=== PATIENT | male | born 1960 | race African-American/Black ===

== ENCOUNTER 2016-05-29 15:52 | Inpatient (IN) | payer OTHER ==
[2016-05-29 17:55] VITALS: BMI 25.1
--- NOTE | 2016-05-29 18:27 | HP ---
CIWA Score - CIWA Score Nausea/Vomitin-Mild Nausea/No Vomiting Muscle Tremors: 3 Anxiety: 4-Mod. Anxious/Guarded Agitation: 4-Moderately Restless Paroxysmal Sweats: 3 Orientation: 0-Oriented Tacttile Disturbances: 0-None Auditory Disturbances: 0-None Visual Disturbances: 0-None Headache: 0-None Present CIWA-Ar Total Score: 15 Admission ROS BHS - HPI Chief Complaint: Withdrawal sx. Allergies/Adverse Reactions: Allergies Allergy/AdvReac Type Severity Reaction Status Date / Time No Known Drug Allergies Allergy Verified 12/23/15 21:01 History of Present Illness: 56 y/o man with a long hx. of alcoholism is admitted for detox. Pt. has been in previous detox, reports 2 yrs. sobriety in 1991 to 1993. Exam Limitations: No Limitations - Ebola screening Have you traveled outside of the country in the last 21 days: No Have you had contact with anyone from an Ebola affected area: No Have you been sick,other than usual withdrawal symptoms: No Do you have a fever: No - Review of Systems Constitutional: Diaphoresis EENT: reports: No Symptoms Reported Respiratory: reports: No Symptoms reported Cardiac: reports: No Symptoms Reported GI: reports: Nausea, Abdominal cramping : reports: No Symptoms Reported Musculoskeletal: reports: Joint Pain, Muscle Pain Integumentary: reports: Sweating Neuro: reports: Tremors Endocrine: reports: No Symptoms Reported Hematology: reports: No Symptoms Reported Psychiatric: reports: No Sypmtoms Reported Other Systems: Reviewed and Negative Patient History - Patient Medical History Hx Anemia: No Hx Asthma: No Hx Chronic Obstructive Pulmonary Disease (COPD): No Hx Cancer: No Hx Cardiac Disorders: No Hx Congestive Heart Failure: No Hx Hypertension: No Hx Hypercholesterolemia: No Hx Pacemaker: No HX Cerebrovascular Accident: No Hx Seizures: No Hx Dementia: No Hx Diabetes: No Hx Gastrointestinal Disorders: No Hx Liver Disease: No Hx Genitourinary Disorders: No Hx Sexually Transmitted Disorders: No Hx Renal Disease (ESRD): No Hx Thyroid Disease: No Hx Human Immunodeficiency Virus (HIV): No Hx Hepatitis C: No Hx Depression: No Hx Suicide Attempt: No Hx Bipolar Disorder: No Hx Schizophrenia: No - Patient Surgical History Past Surgical History: No Hx Neurologic Surgery: No Hx Cataract Extraction: No Hx Cardiac Surgery: No Hx Lung Surgery: No Hx Breast Surgery: No Hx Breast Biopsy: No Hx Abdominal Surgery: No Hx Appendectomy: No Hx Cholecystectomy: No Hx Genitourinary Surgery: No Hx Section: No Hx Orthopedic Surgery: No Anesthesia Reaction: No - PPD History Date: 08/30/15 Results: 0 mm PPD to be Administered?: No - Smoking Cessation Smoking history: Current every day smoker Have you smoked in the past 12 months: Yes Aproximately how many cigarettes per day: 10 Cigars Per Day: 0 Hx Chewing Tobacco Use: No Initiated information on smoking cessation: Yes 'Breaking Loose' booklet given: 05/29/16 - Substance & Tx. History Hx Alcohol Use: Yes Hx Substance Use: Yes Substance Use Type: Alcohol, Cocaine Hx Substance Use Treatment: Yes (detox) - Substances Abused Alcohol Route: Oral Frequency: Daily Amount used: vodka 2 pints Age of first use: 17 Date of Last Use: 05/29/16 Crack Route: Smoking Frequency: Daily Amount used: $50.00 Age of first use: 26 Date of Last Use: 05/28/16 Family Disease History - Family Disease History Family History: Denies Admission Physical Exam [facility] - Vital Signs Vital Signs: Vital Signs - 24 hr 05/29/16 17:52 Temperature 95.9 F L Pulse Rate 20 L Respiratory 53 H Rate Blood Pressure 126/83 - Physical General Appearance: Yes: Tremorous, Anxious, Other HEENTM: Yes: Rhinorrhea Respiratory: Yes: Chest Non-Tender, Lungs Clear, Normal Breath Sounds Neck: Yes: Supple Breast: Yes: Breast Exam Deferred Cardiology: Yes: Regular Rhythm, Regular Rate, S1, S2 Abdominal: Yes: Normal Bowel Sounds, Non Tender, Soft Genitourinary: Yes: Within Normal Limits Back: Yes: Within Normal Limits Musculoskeletal: Yes: Within Normal Limits Extremities: Yes: Tremors Neurological: Yes: Fully Oriented, Alert Integumentary: Yes: Diaphoresis Lymphatic: Yes: Within Normal Limits - Diagnostic (1) Alcohol dependence with uncomplicated withdrawal Current Visit: Yes Status: Chronic (2) Cocaine dependence Current Visit: Yes Status: Chronic (3) Nicotine dependence Current Visit: Yes Status: Chronic Qualifiers: Nicotine product type: cigarettes Substance use status: uncomplicated Qualified Code(s): F17.210 - Nicotine dependence, cigarettes, uncomplicated Cleared for Admission [facility] - Detox or Rehab [facility] Level of Care: Medically Managed Detox Regimen/Protocol: Librium BHS Breath Alcohol Content Breath Alcohol Content: 0.006 Urine Drug Screen - Results Drug Screen Negative: No Urine Drug Screen Results: ELYSIA-Cocaine
[2016-05-29] MEDS ORDERED: ACETAMINOPHEN 325 MG TABLET (FP) PO PRN (18:34)
[2016-05-29] MEDS ORDERED: guaiFENesin/D-METHORPHAN HB 10 ML UNIT-DOSE CUPS PO PRN (18:34)
[2016-05-29] MEDS ORDERED: MAGNESIUM CITRATE 300 ML BOTTLE PO PRN (18:34)
[2016-05-29] MEDS ORDERED: MAGNESIUM HYDROX 2400MG/30ML ORAL SUSPENSION 30 ML CUP PO PRN (18:34)
[2016-05-29] MEDS ORDERED: P-EPHED 60MG/TRIPROLIDI 2.5MG TABLET PO PRN (18:34)
[2016-05-29] MEDS ORDERED: MAG HYDROX/AL HYDROX/SIMETH 30 ML UNIT-DOSE CUP PO PRN (18:34)
[2016-05-29] MEDS ORDERED: MENTHOL/PHENOL 1 EACH UD MM PRN (18:34)
[2016-05-29] MEDS ORDERED: diphenhydrAMINE HCL 50 MG CAPSULE PO PRN (18:34)
[2016-05-29] MEDS ORDERED: chlordiazePOXIDE HCL 25 MG CAPSULE PO PRN (18:34)
[2016-05-29] MEDS ORDERED: IBUPROFEN 400 MG TABLET (FP) PO PRN (18:34)
[2016-05-29] MEDS ORDERED: LOPERAMIDE HCL 2 MG CAPSULE PO PRN (18:34)
[2016-05-29] MEDS ORDERED: hydrOXYzine PAMOATE 50 MG CAPSULE (FP) PO PRN (18:34)
[2016-05-29] MEDS ORDERED: NICOTINE POLACRILEX 2 MG GUM BC PRN (18:34)
[2016-05-29] MEDS ORDERED: chlordiazePOXIDE HCL 25 MG CAPSULE PO ONE (19:45)
[2016-05-29] MEDS: NICOTINE 21 MG/24 HOURS TOPICAL PATCH TD SCH (20:06)
[2016-05-29] MEDS: THIAMINE HCL 100 MG TABLET (FP) PO SCH (22:20)
[2016-05-29] MEDS: chlordiazePOXIDE HCL 25 MG CAPSULE PO SCH (22:20)
[2016-05-30] MEDS: chlordiazePOXIDE HCL 25 MG CAPSULE PO SCH ×4 (05:15→22:14)
[2016-05-30 09:51] LABS: MCH 28.4 pg (25.7-33.7); MEAN PLT VOLUME 9.7 fl (7.5-11.1); PLATELET COUNT 168 K/MM3 (134-434); RDW 14.1 % (11.9-15.9); WHITE BLOOD COUNT 7.7 K/mm3 (4.0-10.0)
[2016-05-30 09:52] LABS: URINE APPEARANCE CLEAR; URINE BILIRUBIN NEGATIVE (NEGATIVE); URINE BLOOD NEGATIVE (NEGATIVE); URINE COLOR LTYELLOW; URINE GLUCOSE (UA) NEGATIVE (NEGATIVE); URINE KETONE NEGATIVE (NEGATIVE); URINE LEUK ESTERASE NEGATIVE (NEGATIVE); URINE NITRITE NEGATIVE (NEGATIVE); URINE PROTEIN NEGATIVE (NEGATIVE); URINE UROBILINOGEN NEGATIVE E.U./dl (0.2-1.0)
[2016-05-30 10:10] LABS: CALCIUM 8.8 mg/dL (8.5-10.1); SGOT/AST 14 U/L (15-37)
[2016-05-30] MEDS: PRENATAL VITAMINS W/ FOLIC ACID TABLET (FP) PO SCH (10:14)
[2016-05-30] MEDS: NICOTINE 21 MG/24 HOURS TOPICAL PATCH TD SCH (10:16)
[2016-05-30 10:19] LABS: ALBUMIN 3.6 g/dl (3.4-5.0); ALK PHOS 70 U/L (45-117); ANION GAP 7 (8-16); BILIRUBIN,TOTAL 0.3 mg/dL (0.2-1.0); CO2 29 mmol/L (21-32); GLUCOSE,RANDOM 93 mg/dL (74-106); SGPT/ALT 22 U/L (12-78); TOT PROT 6.6 g/dl (6.4-8.2)
[2016-05-30 10:23] LABS: HIV 1 & 2 AB NEGATIVE; HIV 1 AGp24 NEGATIVE
--- NOTE | 2016-05-30 12:41 | EKG ---
Test Reason : Blood Pressure : / mmHG Vent. Rate : 055 BPM Atrial Rate : 055 BPM P-R Int : 156 ms QRS Dur : 086 ms QT Int : 396 ms P-R-T Axes : 067 046 038 degrees QTc Int : 378 ms SINUS BRADYCARDIA SEPTAL INFARCT , AGE UNDETERMINED ABNORMAL ECG NO PREVIOUS ECGS AVAILABLE Confirmed by KRYSTINA FIORE MD ([id number]) on 05/30/2016 12:41:03 PM Referred By: Confirmed By:KRYSTINA FIORE MD
--- NOTE | 2016-05-30 13:23 | PN ---
S CIWA - CIWA Score Nausea/Vomitin-Mild Nausea/No Vomiting Muscle Tremors: 4-Moderate,w/Arms Extend Anxiety: 4-Mod. Anxious/Guarded Agitation: 3 Paroxysmal Sweats: 3 Orientation: 0-Oriented Tacttile Disturbances: 0-None Auditory Disturbances: 0-None Visual Disturbances: 0-None Headache: 0-None Present CIWA-Ar Total Score: 15 BHS Progress Note (SOAP) Subjective: Sweating,anxiety,tremors,interrupted sleep,restless Objective: 05/30/16 13:22 Vital Signs - 8 hr 05/30/16 05/30/16 06:13 10:23 Temperature 97.6 F 97.6 F Pulse Rate 65 79 Respiratory 18 18 Rate Blood Pressure 120/64 123/68 Laboratory Tests 05/30/16 05/30/16 05/30/16 07:00 07:00 07:00 WBC 7.7 RBC 4.28 Hgb 12.2 Hct 38.1 MCV 89.0 MCHC 32.0 RDW 14.1 Plt Count 168 D MPV 9.7 Sodium 145 Potassium 4.3 Chloride 109 H Carbon Dioxide 29 Anion Gap 7 L BUN 14 Creatinine 1.0 Creat Clearance w eGFR > 60 Random Glucose 93 Calcium 8.8 Total Bilirubin 0.3 D AST 14 L ALT 22 Alkaline Phosphatase 70 Total Protein 6.6 Albumin 3.6 Urine Color Urine Appearance Urine pH Ur Specific [place] Urine Protein Urine Glucose (UA) Urine Ketones Urine Blood Urine Nitrite Urine Bilirubin Urine Urobilinogen Ur Leukocyte Esterase RPR Titer Nonreactive HIV 1&2 Antibody Screen HIV P24 Antigen 05/30/16 05/30/16 07:00 07:00 WBC RBC Hgb Hct MCV MCHC RDW Plt Count MPV Sodium Potassium Chloride Carbon Dioxide Anion Gap BUN Creatinine Creat Clearance w eGFR Random Glucose Calcium Total Bilirubin AST ALT Alkaline Phosphatase Total Protein Albumin Urine Color Ltyellow Urine Appearance Clear Urine pH 6.0 Ur Specific [place] 1.019 Urine Protein Negative Urine Glucose (UA) Negative Urine Ketones Negative Urine Blood Negative Urine Nitrite Negative Urine Bilirubin Negative Urine Urobilinogen Negative Ur Leukocyte Esterase Negative RPR Titer HIV 1&2 Antibody Screen Negative HIV P24 Antigen Negative labs noted Assessment: 05/30/16 13:23 Withdrawal sx. Plan: Continue detox
[2016-05-30] MEDS: THIAMINE HCL 100 MG TABLET (FP) PO SCH (22:14)
[2016-05-31] MEDS: chlordiazePOXIDE HCL 25 MG CAPSULE PO SCH ×3 (05:27→17:06)
[2016-05-31] MEDS: NICOTINE 21 MG/24 HOURS TOPICAL PATCH TD SCH (10:10)
[2016-05-31] MEDS: PRENATAL VITAMINS W/ FOLIC ACID TABLET (FP) PO SCH (10:10)
--- NOTE | 2016-05-31 10:22 | PN ---
[facility] CIWA - CIWA Score Nausea/Vomitin-No Nausea/No Vomiting Muscle Tremors: 3 Anxiety: 3 Agitation: 4-Moderately Restless Paroxysmal Sweats: 3 Orientation: 0-Oriented Tacttile Disturbances: 0-None Auditory Disturbances: 0-None Visual Disturbances: 0-None Headache: 0-None Present CIWA-Ar Total Score: 13 S Progress Note (SOAP) Subjective: Anxiety,tremors,sweating,interrupted sleep,restless Objective: 05/31/16 10:21 Vital Signs - 8 hr 05/31/16 05/31/16 05/31/16 03:22 05:58 09:29 Temperature 96.7 F L 96.6 F L Pulse Rate 63 72 Respiratory 18 18 18 Rate Blood Pressure 111/67 120/69 Laboratory Last Values WBC 7.7 K/mm3 (4.0-10.0) 05/30/16 07:00 RBC 4.28 M/mm3 (4.00-5.60) 05/30/16 07:00 Hgb 12.2 GM/dL (11.7-16.9) 05/30/16 07:00 Hct 38.1 % (35.4-49) 05/30/16 07:00 MCV 89.0 fl (80-96) 05/30/16 07:00 MCHC 32.0 g/dl (32.0-35.9) 05/30/16 07:00 RDW 14.1 % (11.9-15.9) 05/30/16 07:00 Plt Count 168 K/MM3 (134-434) D 05/30/16 07:00 MPV 9.7 fl (7.5-11.1) 05/30/16 07:00 Sodium 145 mmol/L (136-145) 05/30/16 07:00 Potassium 4.3 mmol/L (3.5-5.1) 05/30/16 07:00 Chloride 109 mmol/L (98-107) H 05/30/16 07:00 Carbon Dioxide 29 mmol/L (21-32) 05/30/16 07:00 Anion Gap 7 (8-16) L 05/30/16 07:00 BUN 14 mg/dL (7-18) 05/30/16 07:00 Creatinine 1.0 mg/dL (0.7-1.3) 05/30/16 07:00 Creat Clearance w eGFR > 60 (>60) 05/30/16 07:00 Random Glucose 93 mg/dL (74-106) 05/30/16 07:00 Calcium 8.8 mg/dL (8.5-10.1) 05/30/16 07:00 Total Bilirubin 0.3 mg/dL (0.2-1.0) D 05/30/16 07:00 AST 14 U/L (15-37) L 05/30/16 07:00 ALT 22 U/L (12-78) 05/30/16 07:00 Alkaline Phosphatase 70 U/L (45-117) 05/30/16 07:00 Total Protein 6.6 g/dl (6.4-8.2) 05/30/16 07:00 Albumin 3.6 g/dl (3.4-5.0) 05/30/16 07:00 Urine Color Ltyellow 05/30/16 07:00 Urine Appearance Clear 05/30/16 07:00 Urine pH 6.0 (5.0-8.0) 05/30/16 07:00 Ur Specific [place] 1.019 (1.001-1.035) 05/30/16 07:00 Urine Protein Negative (NEGATIVE) 05/30/16 07:00 Urine Glucose (UA) Negative (NEGATIVE) 05/30/16 07:00 Urine Ketones Negative (NEGATIVE) 05/30/16 07:00 Urine Blood Negative (NEGATIVE) 05/30/16 07:00 Urine Nitrite Negative (NEGATIVE) 05/30/16 07:00 Urine Bilirubin Negative (NEGATIVE) 05/30/16 07:00 Urine Urobilinogen Negative E.U./dl (0.2-1.0) 05/30/16 07:00 Ur Leukocyte Esterase Negative (NEGATIVE) 05/30/16 07:00 RPR Titer Nonreactive (NONREACTIVE) 05/30/16 07:00 HIV 1&2 Antibody Screen Negative 05/30/16 07:00 HIV P24 Antigen Negative 05/30/16 07:00 Labs noted Assessment: 05/31/16 10:22 Withdrawal sx. Plan: Continue detox
[2016-05-31] MEDS: THIAMINE HCL 100 MG TABLET (FP) PO SCH (22:15)
[2016-05-31] MEDS: chlordiazePOXIDE 5 MG CAPSULE PO SCH (22:15)
[2016-06-01] MEDS: chlordiazePOXIDE 5 MG CAPSULE PO SCH ×3 (05:48→17:41)
[2016-06-01] MEDS: NICOTINE 21 MG/24 HOURS TOPICAL PATCH TD SCH (10:19)
[2016-06-01] MEDS: PRENATAL VITAMINS W/ FOLIC ACID TABLET (FP) PO SCH (10:19)
--- NOTE | 2016-06-01 16:46 | PN ---
BHS Progress Note (SOAP) Subjective: Sweating,interrupted sleep,restless Objective: 06/01/16 16:45 Vital Signs - 8 hr 06/01/16 06/01/16 09:25 13:09 Temperature 97.7 F 98.2 F Pulse Rate 83 70 Respiratory 18 18 Rate Blood Pressure 115/70 112/72 Laboratory Last Values WBC 7.7 K/mm3 (4.0-10.0) 05/30/16 07:00 RBC 4.28 M/mm3 (4.00-5.60) 05/30/16 07:00 Hgb 12.2 GM/dL (11.7-16.9) 05/30/16 07:00 Hct 38.1 % (35.4-49) 05/30/16 07:00 MCV 89.0 fl (80-96) 05/30/16 07:00 MCHC 32.0 g/dl (32.0-35.9) 05/30/16 07:00 RDW 14.1 % (11.9-15.9) 05/30/16 07:00 Plt Count 168 K/MM3 (134-434) D 05/30/16 07:00 MPV 9.7 fl (7.5-11.1) 05/30/16 07:00 Sodium 145 mmol/L (136-145) 05/30/16 07:00 Potassium 4.3 mmol/L (3.5-5.1) 05/30/16 07:00 Chloride 109 mmol/L (98-107) H 05/30/16 07:00 Carbon Dioxide 29 mmol/L (21-32) 05/30/16 07:00 Anion Gap 7 (8-16) L 05/30/16 07:00 BUN 14 mg/dL (7-18) 05/30/16 07:00 Creatinine 1.0 mg/dL (0.7-1.3) 05/30/16 07:00 Creat Clearance w eGFR > 60 (>60) 05/30/16 07:00 Random Glucose 93 mg/dL (74-106) 05/30/16 07:00 Calcium 8.8 mg/dL (8.5-10.1) 05/30/16 07:00 Total Bilirubin 0.3 mg/dL (0.2-1.0) D 05/30/16 07:00 AST 14 U/L (15-37) L 05/30/16 07:00 ALT 22 U/L (12-78) 05/30/16 07:00 Alkaline Phosphatase 70 U/L (45-117) 05/30/16 07:00 Total Protein 6.6 g/dl (6.4-8.2) 05/30/16 07:00 Albumin 3.6 g/dl (3.4-5.0) 05/30/16 07:00 Urine Color Ltyellow 05/30/16 07:00 Urine Appearance Clear 05/30/16 07:00 Urine pH 6.0 (5.0-8.0) 05/30/16 07:00 Ur Specific [place] 1.019 (1.001-1.035) 05/30/16 07:00 Urine Protein Negative (NEGATIVE) 05/30/16 07:00 Urine Glucose (UA) Negative (NEGATIVE) 05/30/16 07:00 Urine Ketones Negative (NEGATIVE) 05/30/16 07:00 Urine Blood Negative (NEGATIVE) 05/30/16 07:00 Urine Nitrite Negative (NEGATIVE) 05/30/16 07:00 Urine Bilirubin Negative (NEGATIVE) 05/30/16 07:00 Urine Urobilinogen Negative E.U./dl (0.2-1.0) 05/30/16 07:00 Ur Leukocyte Esterase Negative (NEGATIVE) 05/30/16 07:00 RPR Titer Nonreactive (NONREACTIVE) 05/30/16 07:00 HIV 1&2 Antibody Screen Negative 05/30/16 07:00 HIV P24 Antigen Negative 05/30/16 07:00 labs noted Assessment: 06/01/16 16:46 Withdrawal sx. Plan: Continue detox
[2016-06-01] MEDS: THIAMINE HCL 100 MG TABLET (FP) PO SCH (22:53)
[2016-06-01] MEDS: chlordiazePOXIDE HCL 10 MG CAPSULE PO SCH (22:53)
[2016-06-02] MEDS: chlordiazePOXIDE HCL 10 MG CAPSULE PO SCH (06:19)
[2016-06-02 06:30] VITALS: BP 96/66; PULSE 62; TEMP 97.2
--- NOTE | 2016-06-02 07:55 | PN ---
S Progress Note (SOAP) Subjective: ALERT,NO COMPLAINT Objective: 06/02/16 07:53 Vital Signs Temperature 97.2 F L 06/02/16 06:29 Pulse Rate 62 06/02/16 06:29 Respiratory Rate 18 06/02/16 06:29 Blood Pressure 96/66 06/02/16 06:29 O2 Sat by Pulse Oximetry (%) Assessment: 06/02/16 07:53 DETOX COMPLETED,NO WITHDRAWAL SYMPTOM Plan: DISCHARGE TODAY,FOLLOW UP WITH AFTER CARE PROGRAM ARRANGEMENT
--- NOTE | 2016-06-02 08:00 | DS ---
[facility] Detox Discharge Summary Admission Date: 05/29/16 Discharge Date: 06/02/16 - History Present History: Alcohol Dependence, Cocaine Dependence Additional Comments: FOLLOW UP WITH AFTER CARE PROGRAM ARRANGEMENT Pertinent Past History: NICOTINE DEPENDENCE WEIGHT LOSS - Physical Exam Results Vital Signs: Vital Signs Temperature 97.2 F L 06/02/16 06:29 Pulse Rate 62 06/02/16 06:29 Respiratory Rate 18 06/02/16 06:29 Blood Pressure 96/66 06/02/16 06:29 O2 Sat by Pulse Oximetry (%) Pertinent Admission Physical Exam Findings: WITHDRAWAL SYMPTOM - Treatment Hospital Course: Detox Protocol Followed, Detoxed Safely, Responded well, Discharged Condition Good Patient has Accepted a Rehab Referral to: DECLINED - Medication Discharge Medications: Ambulatory Orders NK [No Known Home Medication] 01/08/15 - Diagnosis (1) Alcohol dependence with uncomplicated withdrawal Current Visit: Yes Status: Chronic (2) Nicotine dependence Current Visit: Yes Status: Chronic Qualifiers: Nicotine product type: cigarettes Substance use status: uncomplicated Qualified Code(s): F17.210 - Nicotine dependence, cigarettes, uncomplicated (3) Alcohol dependence Current Visit: No Status: Acute (4) Weight loss Current Visit: No Status: Acute (5) Cocaine dependence Current Visit: Yes Status: Chronic - AMA Did Patient Leave Against Medical Advice: No
== END 2016-06-02 08:52 | disposition home or self-care (01) | DRG 774 ==
LOC: YASAS 15:52 → Y3N 19:20
PROVIDERS: ADMIT Internal Medicine; ATTEND Internal Medicine
PROC: HZ2ZZZZ Detoxification Services for Substance Abuse Treatment (ICD-10-PCS; principal; 2016-05-29)
DX: F10.230 Alcohol dependence with withdrawal, uncomplicated (principal); F14.20 Cocaine dependence, uncomplicated; F17.210 Nicotine dependence, cigarettes, uncomplicated; Z87.898 Personal history of other specified conditions
CPT/HCPCS: 36415; 80053; 81003; 85027; 86593; 87389; 93005; 93010

== ENCOUNTER 2016-10-17 10:13 | Inpatient (IN) | payer OTHER ==
[2016-10-17 12:09] VITALS: BMI 25.1
--- NOTE | 2016-10-17 13:08 | HP ---
CIWA Score - CIWA Score Nausea/Vomitin-No Nausea/No Vomiting Muscle Tremors: 4-Moderate,w/Arms Extend Anxiety: 4-Mod. Anxious/Guarded Agitation: 4-Moderately Restless Paroxysmal Sweats: 3 Orientation: 0-Oriented Tacttile Disturbances: 0-None Auditory Disturbances: 0-None Visual Disturbances: 0-None Headache: 2-Mild CIWA-Ar Total Score: 17 Admission ROS BHS - HPI Chief Complaint: I need help. Allergies/Adverse Reactions: Allergies Allergy/AdvReac Type Severity Reaction Status Date / Time No Known Drug Allergies Allergy Verified 10/17/16 12:58 History of Present Illness: Pt is a 56yr old male with a long history of alcohol and cocaine dependence seeking detox for treatment. Exam Limitations: No Limitations - Ebola screening Have you traveled outside of the country in the last 21 days: No Have you had contact with anyone from an Ebola affected area: No Have you been sick,other than usual withdrawal symptoms: No - Review of Systems Constitutional: Chills, Diaphoresis, Loss of Appetite, Night Sweats, Changes in sleep EENT: reports: Nose Congestion Respiratory: reports: No Symptoms reported Cardiac: reports: Syncope GI: reports: Diarrhea, Poor Appetite, Poor Fluid Intake : reports: No Symptoms Reported Musculoskeletal: reports: No Symptoms Reported Integumentary: reports: Flushing, Sweating Neuro: reports: Headache, Tingling, Tremors Endocrine: reports: Excessive Sweating, Flushing Hematology: reports: No Symptoms Reported Psychiatric: reports: Judgement Intact, Mood/Affect Appropiate, Orientated x3, Agitated, Anxious Other Systems: Reviewed and Negative Patient History - Patient Medical History Hx Anemia: No Hx Asthma: No Hx Chronic Obstructive Pulmonary Disease (COPD): No Hx Cancer: No Hx Cardiac Disorders: No Hx Congestive Heart Failure: No Hx Hypertension: No Hx Hypercholesterolemia: No Hx Pacemaker: No HX Cerebrovascular Accident: No Hx Seizures: No Hx Dementia: No Hx Diabetes: No Hx Gastrointestinal Disorders: No Hx Liver Disease: No Hx Genitourinary Disorders: No Hx Sexually Transmitted Disorders: No Hx Renal Disease (ESRD): No Hx Thyroid Disease: No Hx Human Immunodeficiency Virus (HIV): No (negative) Hx Hepatitis C: No (negative) Hx Depression: No Hx Suicide Attempt: No (denies) Hx Bipolar Disorder: No Hx Schizophrenia: No - Patient Surgical History Past Surgical History: No Hx Neurologic Surgery: No Hx Cataract Extraction: No Hx Cardiac Surgery: No Hx Lung Surgery: No Hx Breast Surgery: No Hx Breast Biopsy: No Hx Abdominal Surgery: No Hx Appendectomy: No Hx Cholecystectomy: No Hx Genitourinary Surgery: No Hx Section: No Hx Orthopedic Surgery: No Anesthesia Reaction: No - PPD History Previous Implant?: Yes Documented Results: Negative w/o proof PPD to be Administered?: Yes - Reproductive History Patient is a Female of Child Bearing Age (11 -55 yrs old): No - Smoking Cessation Smoking history: Current every day smoker Have you smoked in the past 12 months: Yes Aproximately how many cigarettes per day: 10 Cigars Per Day: 0 Hx Chewing Tobacco Use: No Initiated information on smoking cessation: Yes 'Breaking Loose' booklet given: 10/17/16 - Substance & Tx. History Hx Alcohol Use: Yes Hx Substance Use: Yes Substance Use Type: Alcohol, Cocaine Hx Substance Use Treatment: Yes (last detox 05/2016) - Substances Abused Alcohol Route: Oral Frequency: Daily Amount used: 4 CANS BEER/ 2 PINTS VODKA Age of first use: 16 Date of Last Use: 10/16/16 Cocaine Route: Smoking Frequency: Daily Amount used: $20 Age of first use: 22 Date of Last Use: 10/16/16 Family Disease History - Family Disease History Family History: Denies Admission Physical Exam [facility] - Vital Signs Vital Signs: Vital Signs - 24 hr 10/17/16 11:54 Temperature 97.4 F L Pulse Rate 82 Respiratory 20 Rate Blood Pressure 126/76 - Physical General Appearance: Yes: Appropriately Dressed, Moderate Distress, Tremorous, Irritable, Sweating, Anxious HEENTM: Yes: Normal ENT Inspection, Hearing Decreased Respiratory: Yes: Lungs Clear, Normal Breath Sounds, No Respiratory Distress Neck: Yes: No masses,lesions,Nodules Breast: Yes: Within Normal Limits Cardiology: Yes: Regular Rhythm, Regular Rate, S1, S2 Abdominal: Yes: Normal Bowel Sounds, Non Tender, Soft Genitourinary: Yes: Within Normal Limits Back: Yes: Normal Inspection Musculoskeletal: Yes: full range of Motion Extremities: Yes: Normal Capillary Refill Neurological: Yes: Fully Oriented, Alert, Normal Response Integumentary: Yes: Normal Color, Diaphoresis Lymphatic: Yes: Within Normal Limits - Diagnostic (1) Alcohol dependence with uncomplicated withdrawal Current Visit: Yes Status: Chronic (2) Cocaine dependence Current Visit: Yes Status: Chronic (3) Nicotine dependence Current Visit: Yes Status: Chronic Qualifiers: Nicotine product type: cigarettes Substance use status: uncomplicated Qualified Code(s): F17.210 - Nicotine dependence, cigarettes, uncomplicated Cleared for Admission BHS - Detox or Rehab [facility] Level of Care: Medically Managed Detox Regimen/Protocol: Librium BHS Breath Alcohol Content Breath Alcohol Content: 0 Urine Drug Screen - Results Drug Screen Negative: No Urine Drug Screen Results: ELYSIA-Cocaine
[2016-10-17] MEDS ORDERED: guaiFENesin/D-METHORPHAN HB 10 ML UNIT-DOSE CUPS PO PRN (13:13)
[2016-10-17] MEDS ORDERED: MAG HYDROX/AL HYDROX/SIMETH 30 ML UNIT-DOSE CUP PO PRN (13:13)
[2016-10-17] MEDS ORDERED: MENTHOL/PHENOL 1 EACH UD MM PRN (13:13)
[2016-10-17] MEDS ORDERED: diphenhydrAMINE HCL 50 MG CAPSULE PO PRN (13:13)
[2016-10-17] MEDS ORDERED: hydrOXYzine PAMOATE 50 MG CAPSULE (FP) PO PRN (13:13)
[2016-10-17] MEDS ORDERED: IBUPROFEN 400 MG TABLET (FP) PO PRN (13:13)
[2016-10-17] MEDS ORDERED: MAGNESIUM HYDROX 2400MG/30ML ORAL SUSPENSION 30 ML CUP PO PRN (13:13)
[2016-10-17] MEDS ORDERED: MAGNESIUM CITRATE 300 ML BOTTLE PO PRN (13:13)
[2016-10-17] MEDS ORDERED: P-EPHED 60MG/TRIPROLIDI 2.5MG TABLET PO PRN (13:13)
[2016-10-17] MEDS ORDERED: ACETAMINOPHEN 325 MG TABLET (FP) PO PRN (13:13)
[2016-10-17] MEDS ORDERED: LOPERAMIDE HCL 2 MG CAPSULE PO PRN (13:13)
[2016-10-17] MEDS ORDERED: chlordiazePOXIDE HCL 25 MG CAPSULE PO PRN (13:13)
[2016-10-17] MEDS ORDERED: NICOTINE POLACRILEX 4 MG GUM BC PRN (13:13)
[2016-10-17] MEDS ORDERED: chlordiazePOXIDE HCL 25 MG CAPSULE PO ONE (14:15)
[2016-10-17] MEDS: chlordiazePOXIDE HCL 25 MG CAPSULE PO SCH ×2 (17:31→22:52)
[2016-10-17 21:21] LABS: URINE APPEARANCE SLCLOUDY; URINE BILIRUBIN NEGATIVE (NEGATIVE); URINE BLOOD NEGATIVE (NEGATIVE); URINE COLOR DKYELLOW; URINE GLUCOSE (UA) NEGATIVE (NEGATIVE); URINE KETONE NEGATIVE (NEGATIVE); URINE LEUK ESTERASE NEGATIVE (NEGATIVE); URINE NITRITE NEGATIVE (NEGATIVE); URINE PROTEIN NEGATIVE (NEGATIVE); URINE UROBILINOGEN NEGATIVE mg/dL (0.2-1.0)
[2016-10-17] MEDS: THIAMINE HCL 100 MG TABLET (FP) PO SCH (22:52)
[2016-10-18] MEDS: chlordiazePOXIDE HCL 25 MG CAPSULE PO SCH ×4 (05:43→22:29)
[2016-10-18 08:51] LABS: HIV 1 & 2 AB NEGATIVE; HIV 1 AGp24 NEGATIVE
[2016-10-18 10:24] LABS: MCH 28.6 pg (25.7-33.7); MEAN CELL VOLUME 89.2 fl (80-96); MEAN PLT VOLUME 10.1 fl (7.5-11.1); PLATELET COUNT 189 K/MM3 (134-434); RDW 14.1 % (11.9-15.9); WHITE BLOOD COUNT 8.7 K/mm3 (4.0-10.0)
[2016-10-18] MEDS: NICOTINE 21 MG/24 HOURS TOPICAL PATCH TD SCH (10:28)
[2016-10-18] MEDS: PRENATAL VITAMINS W/ FOLIC ACID TABLET (FP) PO SCH (10:28)
[2016-10-18 10:42] LABS: ALBUMIN 4.1 g/dl (3.4-5.0); ALK PHOS 75 U/L (45-117); ANION GAP 7 (8-16); BILIRUBIN,TOTAL 0.6 mg/dL (0.2-1.0); CALCIUM 10.2 mg/dL (8.5-10.1); CO2 28 mmol/L (21-32); CREATININE 1.3 mg/dL (0.7-1.3); GLUCOSE,RANDOM 89 mg/dL (74-106); SGOT/AST 13 U/L (15-37); SGPT/ALT 19 U/L (12-78); TOT PROT 7.4 g/dl (6.4-8.2)
--- NOTE | 2016-10-18 13:02 | PN ---
S CIWA - CIWA Score Nausea/Vomitin-No Nausea/No Vomiting Muscle Tremors: 4-Moderate,w/Arms Extend Anxiety: 4-Mod. Anxious/Guarded Agitation: 3 Paroxysmal Sweats: 3 Orientation: 0-Oriented Tacttile Disturbances: 1-Very Mild Itch/Numbness Auditory Disturbances: 0-None Visual Disturbances: 0-None Headache: 0-None Present CIWA-Ar Total Score: 15 BHS Progress Note (SOAP) Subjective: Sweating,anxiety,tremors,restless,interrupted sleep. Objective: 10/18/16 13:01 Vital Signs - 8 hr 10/18/16 10/18/16 06:37 10:01 Temperature 97.6 F 96.9 F L Pulse Rate 80 80 Respiratory 18 20 Rate Blood Pressure 119/76 121/68 Laboratory Tests 10/17/16 10/17/16 10/17/16 13:00 13:00 20:59 WBC RBC Hgb Hct MCV MCH MCHC RDW Plt Count MPV Sodium Potassium Chloride Carbon Dioxide Anion Gap BUN Creatinine Creat Clearance w eGFR Random Glucose Calcium Total Bilirubin AST ALT Alkaline Phosphatase Total Protein Albumin Urine Color Dkyellow Urine Appearance Slcloudy Urine pH 5.0 Ur Specific [place] >= 1.030 H Urine Protein Negative Urine Glucose (UA) Negative Urine Ketones Negative Urine Blood Negative Urine Nitrite Negative Urine Bilirubin Negative Urine Urobilinogen Negative Ur Leukocyte Esterase Negative RPR Titer Hepatitis C Antibody <0.1 HIV 1&2 Antibody Screen Negative HIV P24 Antigen Negative 10/18/16 10/18/16 10/18/16 05:45 05:45 05:45 WBC 8.7 RBC 4.71 Hgb 13.4 Hct 42.0 MCV 89.2 MCH 28.6 MCHC 32.0 RDW 14.1 Plt Count 189 MPV 10.1 Sodium 143 Potassium 4.0 Chloride 108 H Carbon Dioxide 28 Anion Gap 7 L BUN 20 H D Creatinine 1.3 D Creat Clearance w eGFR 57.31 Random Glucose 89 Calcium 10.2 H Total Bilirubin 0.6 D AST 13 L ALT 19 Alkaline Phosphatase 75 Total Protein 7.4 Albumin 4.1 Urine Color Urine Appearance Urine pH Ur Specific [place] Urine Protein Urine Glucose (UA) Urine Ketones Urine Blood Urine Nitrite Urine Bilirubin Urine Urobilinogen Ur Leukocyte Esterase RPR Titer Nonreactive Hepatitis C Antibody HIV 1&2 Antibody Screen HIV P24 Antigen labs noted Assessment: 10/18/16 13:02 Withdrawal sx. Plan: Continue detox
[2016-10-18] MEDS: THIAMINE HCL 100 MG TABLET (FP) PO SCH (22:29)
[2016-10-19] MEDS: chlordiazePOXIDE HCL 25 MG CAPSULE PO SCH ×2 (05:41→10:45)
[2016-10-19] MEDS: PRENATAL VITAMINS W/ FOLIC ACID TABLET (FP) PO SCH (10:45)
[2016-10-19] MEDS: NICOTINE 21 MG/24 HOURS TOPICAL PATCH TD SCH (10:45)
[2016-10-19] MEDS: MINERAL OIL/PETROLAT/WATER TOPICAL CREAM 113 GM JAR TP SCH ×2 (11:44→22:40)
--- NOTE | 2016-10-19 13:07 | PN ---
[facility] CIWA - CIWA Score Nausea/Vomitin-No Nausea/No Vomiting Muscle Tremors: 2 Anxiety: 5 Agitation: 3 Paroxysmal Sweats: 3 Orientation: 0-Oriented Tacttile Disturbances: 1-Very Mild Itch/Numbness Auditory Disturbances: 0-None Visual Disturbances: 0-None Headache: 0-None Present CIWA-Ar Total Score: 14 S Progress Note (SOAP) Subjective: Anxious, Sweating, interrupted sleep. Objective: PT. A & O X 3, OBSERVED AMBULATING ON UNIT. NO ACUTE DISTRESS. 10/19/16 13:08 Vital Signs Temperature 96.9 F L 10/19/16 09:45 Pulse Rate 75 10/19/16 09:45 Respiratory Rate 18 10/19/16 09:45 Blood Pressure 111/69 10/19/16 09:45 O2 Sat by Pulse Oximetry (%) Laboratory Tests 10/17/16 10/17/16 10/17/16 13:00 13:00 20:59 WBC RBC Hgb Hct MCV MCH MCHC RDW Plt Count MPV Sodium Potassium Chloride Carbon Dioxide Anion Gap BUN Creatinine Creat Clearance w eGFR Random Glucose Calcium Total Bilirubin AST ALT Alkaline Phosphatase Total Protein Albumin Urine Color Dkyellow Urine Appearance Slcloudy Urine pH 5.0 Ur Specific [place] >= 1.030 H Urine Protein Negative Urine Glucose (UA) Negative Urine Ketones Negative Urine Blood Negative Urine Nitrite Negative Urine Bilirubin Negative Urine Urobilinogen Negative Ur Leukocyte Esterase Negative RPR Titer Hepatitis C Antibody <0.1 HIV 1&2 Antibody Screen Negative HIV P24 Antigen Negative 10/18/16 10/18/16 10/18/16 05:45 05:45 05:45 WBC 8.7 RBC 4.71 Hgb 13.4 Hct 42.0 MCV 89.2 MCH 28.6 MCHC 32.0 RDW 14.1 Plt Count 189 MPV 10.1 Sodium 143 Potassium 4.0 Chloride 108 H Carbon Dioxide 28 Anion Gap 7 L BUN 20 H D Creatinine 1.3 D Creat Clearance w eGFR 57.31 Random Glucose 89 Calcium 10.2 H Total Bilirubin 0.6 D AST 13 L ALT 19 Alkaline Phosphatase 75 Total Protein 7.4 Albumin 4.1 Urine Color Urine Appearance Urine pH Ur Specific [place] Urine Protein Urine Glucose (UA) Urine Ketones Urine Blood Urine Nitrite Urine Bilirubin Urine Urobilinogen Ur Leukocyte Esterase RPR Titer Nonreactive Hepatitis C Antibody HIV 1&2 Antibody Screen HIV P24 Antigen LABS NOTED. Assessment: 10/19/16 13:09 WITHDRAWAL SYMPTOMS. Plan: CONTINUE DETOX.
[2016-10-19] MEDS: chlordiazePOXIDE 5 MG CAPSULE PO SCH ×2 (17:11→22:40)
--- NOTE | 2016-10-19 20:03 | EKG ---
Test Reason : Blood Pressure : / mmHG Vent. Rate : 064 BPM Atrial Rate : 064 BPM P-R Int : 146 ms QRS Dur : 084 ms QT Int : 376 ms P-R-T Axes : 061 049 034 degrees QTc Int : 387 ms NORMAL SINUS RHYTHM SEPTAL INFARCT (CITED ON OR BEFORE 29-MAY-2016) ABNORMAL ECG WHEN COMPARED WITH ECG OF 29-MAY-2016 19:10, NO SIGNIFICANT CHANGE WAS FOUND Confirmed by BERNARDO FERRARO MD ([id number] on 10/19/2016 8:02:57 PM Referred By: Confirmed By:BERNARDO FERRARO MD
[2016-10-19] MEDS: THIAMINE HCL 100 MG TABLET (FP) PO SCH (22:40)
[2016-10-20] MEDS: chlordiazePOXIDE 5 MG CAPSULE PO SCH ×2 (05:47→10:47)
--- NOTE | 2016-10-20 08:47 | PN ---
[facility] Progress Note (SOAP) Subjective: nausea, sweats, interrupted sleep anxiety all improved Objective: 10/20/16 08:46 Laboratory Tests 10/17/16 10/17/16 10/17/16 13:00 13:00 20:59 WBC RBC Hgb Hct MCV MCH MCHC RDW Plt Count MPV Sodium Potassium Chloride Carbon Dioxide Anion Gap BUN Creatinine Creat Clearance w eGFR Random Glucose Calcium Total Bilirubin AST ALT Alkaline Phosphatase Total Protein Albumin Urine Color Dkyellow Urine Appearance Slcloudy Urine pH 5.0 Ur Specific [place] >= 1.030 H Urine Protein Negative Urine Glucose (UA) Negative Urine Ketones Negative Urine Blood Negative Urine Nitrite Negative Urine Bilirubin Negative Urine Urobilinogen Negative Ur Leukocyte Esterase Negative RPR Titer Hepatitis C Antibody <0.1 HIV 1&2 Antibody Screen Negative HIV P24 Antigen Negative 10/18/16 10/18/16 10/18/16 05:45 05:45 05:45 WBC 8.7 RBC 4.71 Hgb 13.4 Hct 42.0 MCV 89.2 MCH 28.6 MCHC 32.0 RDW 14.1 Plt Count 189 MPV 10.1 Sodium 143 Potassium 4.0 Chloride 108 H Carbon Dioxide 28 Anion Gap 7 L BUN 20 H D Creatinine 1.3 D Creat Clearance w eGFR 57.31 Random Glucose 89 Calcium 10.2 H Total Bilirubin 0.6 D AST 13 L ALT 19 Alkaline Phosphatase 75 Total Protein 7.4 Albumin 4.1 Urine Color Urine Appearance Urine pH Ur Specific [place] Urine Protein Urine Glucose (UA) Urine Ketones Urine Blood Urine Nitrite Urine Bilirubin Urine Urobilinogen Ur Leukocyte Esterase RPR Titer Nonreactive Hepatitis C Antibody HIV 1&2 Antibody Screen HIV P24 Antigen Vital Signs - 24 hr 10/19/16 10/19/16 10/19/16 09:45 13:58 18:08 Temperature 96.9 F L 98.0 F 97.1 F L Pulse Rate 75 90 91 H Respiratory 18 18 18 Rate Blood Pressure 111/69 136/74 138/82 10/19/16 10/20/16 10/20/16 22:27 00:29 03:30 Temperature 98.2 F Pulse Rate 70 Respiratory 18 18 18 Rate Blood Pressure 128/74 10/20/16 06:49 Temperature 96.1 F L Pulse Rate 66 Respiratory 18 Rate Blood Pressure 116/73 labs noted Assessment: 10/20/16 08:46 withdrawal sx Plan: cont detox, reviewed labwork with patient, fluids, encourage ambulation
[2016-10-20] MEDS: MINERAL OIL/PETROLAT/WATER TOPICAL CREAM 113 GM JAR TP SCH ×2 (10:47→22:57)
[2016-10-20] MEDS: PRENATAL VITAMINS W/ FOLIC ACID TABLET (FP) PO SCH (10:48)
[2016-10-20] MEDS: NICOTINE 21 MG/24 HOURS TOPICAL PATCH TD SCH (10:48)
[2016-10-20] MEDS: ASPIRIN COATED 81 MG TABLET.EC PO SCH (12:58)
[2016-10-20] MEDS: chlordiazePOXIDE HCL 10 MG CAPSULE PO SCH ×2 (17:21→22:57)
[2016-10-20] MEDS: THIAMINE HCL 100 MG TABLET (FP) PO SCH (22:58)
[2016-10-21] MEDS: chlordiazePOXIDE HCL 10 MG CAPSULE PO SCH ×2 (06:11→10:01)
[2016-10-21 06:43] VITALS: BP 118/66; PULSE 70; TEMP 97.3
[2016-10-21] MEDS: MINERAL OIL/PETROLAT/WATER TOPICAL CREAM 113 GM JAR TP SCH (10:00)
[2016-10-21] MEDS: ASPIRIN COATED 81 MG TABLET.EC PO SCH (10:00)
[2016-10-21] MEDS: PRENATAL VITAMINS W/ FOLIC ACID TABLET (FP) PO SCH (10:01)
[2016-10-21] MEDS: NICOTINE 21 MG/24 HOURS TOPICAL PATCH TD SCH (10:01)
--- NOTE | 2016-10-21 10:37 | DS ---
[facility] Detox Discharge Summary Admission Date: 10/17/16 Discharge Date: 10/21/16 - History Present History: Alcohol Dependence, Cocaine Dependence, Sedative Dependence Pertinent Past History: Athlete's feet - Physical Exam Results Vital Signs: Vital Signs Temperature 97.3 F L 10/21/16 06:43 Pulse Rate 70 10/21/16 06:43 Respiratory Rate 18 10/21/16 06:43 Blood Pressure 118/66 10/21/16 06:43 O2 Sat by Pulse Oximetry (%) Pertinent Admission Physical Exam Findings: Withdrawal sx. Laboratory Last Values WBC 8.7 K/mm3 (4.0-10.0) 10/18/16 05:45 RBC 4.71 M/mm3 (4.00-5.60) 10/18/16 05:45 Hgb 13.4 GM/dL (11.7-16.9) 10/18/16 05:45 Hct 42.0 % (35.4-49) 10/18/16 05:45 MCV 89.2 fl (80-96) 10/18/16 05:45 MCH 28.6 pg (25.7-33.7) 10/18/16 05:45 MCHC 32.0 g/dl (32.0-35.9) 10/18/16 05:45 RDW 14.1 % (11.9-15.9) 10/18/16 05:45 Plt Count 189 K/MM3 (134-434) 10/18/16 05:45 MPV 10.1 fl (7.5-11.1) 10/18/16 05:45 Sodium 143 mmol/L (136-145) 10/18/16 05:45 Potassium 4.0 mmol/L (3.5-5.1) 10/18/16 05:45 Chloride 108 mmol/L (98-107) H 10/18/16 05:45 Carbon Dioxide 28 mmol/L (21-32) 10/18/16 05:45 Anion Gap 7 (8-16) L 10/18/16 05:45 BUN 20 mg/dL (7-18) H D 10/18/16 05:45 Creatinine 1.3 mg/dL (0.7-1.3) D 10/18/16 05:45 Creat Clearance w eGFR 57.31 (>60) 10/18/16 05:45 Random Glucose 89 mg/dL (74-106) 10/18/16 05:45 Calcium 10.2 mg/dL (8.5-10.1) H 10/18/16 05:45 Total Bilirubin 0.6 mg/dL (0.2-1.0) D 10/18/16 05:45 AST 13 U/L (15-37) L 10/18/16 05:45 ALT 19 U/L (12-78) 10/18/16 05:45 Alkaline Phosphatase 75 U/L (45-117) 10/18/16 05:45 Total Protein 7.4 g/dl (6.4-8.2) 10/18/16 05:45 Albumin 4.1 g/dl (3.4-5.0) 10/18/16 05:45 Urine Color Dkyellow 10/17/16 20:59 Urine Appearance Slcloudy 10/17/16 20:59 Urine pH 5.0 (5.0-8.0) 10/17/16 20:59 Ur Specific [place] >= 1.030 (1.005-1.025) H 10/17/16 20:59 Urine Protein Negative (NEGATIVE) 10/17/16 20:59 Urine Glucose (UA) Negative (NEGATIVE) 10/17/16 20:59 Urine Ketones Negative (NEGATIVE) 10/17/16 20:59 Urine Blood Negative (NEGATIVE) 10/17/16 20:59 Urine Nitrite Negative (NEGATIVE) 10/17/16 20:59 Urine Bilirubin Negative (NEGATIVE) 10/17/16 20:59 Urine Urobilinogen Negative mg/dL (0.2-1.0) 10/17/16 20:59 Ur Leukocyte Esterase Negative (NEGATIVE) 10/17/16 20:59 RPR Titer Nonreactive (NONREACTIVE) 10/18/16 05:45 Hepatitis C Antibody <0.1 s/co ratio (0.0-0.9) 10/17/16 13:00 HIV 1&2 Antibody Screen Negative 10/17/16 13:00 HIV P24 Antigen Negative 10/17/16 13:00 labs noted - Treatment Hospital Course: Detox Protocol Followed, Detoxed Safely, Responded well, Discharged Condition Good, Rehab Referral Accepted Patient has Accepted a Rehab Referral to: [facility] Help group - Medication Discharge Medications: Ambulatory Orders NK [No Known Home Medication] 01/08/15 - Diagnosis (1) Alcohol dependence with uncomplicated withdrawal Status: Acute (2) Cocaine dependence Status: Acute (3) Nicotine dependence Status: Acute Qualifiers: Nicotine product type: cigarettes Substance use status: uncomplicated Qualified Code(s): F17.210 - Nicotine dependence, cigarettes, uncomplicated - AMA Did Patient Leave Against Medical Advice: No
== END 2016-10-21 08:40 | disposition home or self-care (01) | DRG 774 ==
LOC: YASAS 10:13 → Y3N 13:20
PROVIDERS: ADMIT Internal Medicine; ATTEND Internal Medicine
PROC: HZ2ZZZZ Detoxification Services for Substance Abuse Treatment (ICD-10-PCS; principal; 2016-10-17)
DX: F10.230 Alcohol dependence with withdrawal, uncomplicated (principal); F14.20 Cocaine dependence, uncomplicated; F17.210 Nicotine dependence, cigarettes, uncomplicated
CPT/HCPCS: 36415; 80053; 81003; 85027; 86593; 86803; 87389; 93005; 93010

== ENCOUNTER 2016-11-21 15:40 | Inpatient (IN) | payer OTHER ==
[2016-11-21 18:20] VITALS: BMI 27.1
--- NOTE | 2016-11-21 20:08 | HP ---
Admission ROS [facility] - [facility] Chief Complaint: I WANT TO GO TO REHAB Allergies/Adverse Reactions: Allergies Allergy/AdvReac Type Severity Reaction Status Date / Time No Known Drug Allergies Allergy Verified 10/17/16 12:58 History of Present Illness: 56 YEARS OLD MALE WITH LONG HISTORY OF ALCOHOL COCAINE DEPENDENCE DENIES MEDICAL ISSUE DENIES MENTAL ILLNESS IS ADMITTED TO REHAB Exam Limitations: No Limitations - Ebola screening Have you traveled outside of the country in the last 21 days: No Have you had contact with anyone from an Ebola affected area: No Have you been sick,other than usual withdrawal symptoms: No Do you have a fever: No - Review of Systems Constitutional: Weight Stable EENT: reports: No Symptoms Reported Respiratory: reports: No Symptoms reported Cardiac: reports: No Symptoms Reported GI: reports: No Symptoms Reported : reports: No Symptoms Reported Musculoskeletal: reports: No Symptoms Reported Integumentary: reports: No Symptoms Reported Neuro: reports: No Symptoms reported Endocrine: reports: No Symptoms Reported Hematology: reports: No Symptoms Reported Psychiatric: reports: Judgement Intact, Mood/Affect Appropiate, Orientated x3 Other Systems: Reviewed and Negative Patient History - Patient Medical History Hx Anemia: No Hx Asthma: No Hx Chronic Obstructive Pulmonary Disease (COPD): No Hx Cancer: No Hx Cardiac Disorders: No Hx Congestive Heart Failure: No Hx Hypertension: No Hx Hypercholesterolemia: No Hx Pacemaker: No HX Cerebrovascular Accident: No Hx Seizures: No Hx Dementia: No Hx Diabetes: No Hx Gastrointestinal Disorders: No Hx Liver Disease: No Hx Genitourinary Disorders: No Hx Sexually Transmitted Disorders: No Hx Renal Disease (ESRD): No Hx Thyroid Disease: No Hx Human Immunodeficiency Virus (HIV): No (negative) Hx Hepatitis C: No (negative) Hx Depression: No Hx Suicide Attempt: No (denies) Hx Bipolar Disorder: No Hx Schizophrenia: No - Patient Surgical History Past Surgical History: No Hx Neurologic Surgery: No Hx Cataract Extraction: No Hx Cardiac Surgery: No Hx Lung Surgery: No Hx Breast Surgery: No Hx Breast Biopsy: No Hx Abdominal Surgery: No Hx Appendectomy: No Hx Cholecystectomy: No Hx Genitourinary Surgery: No Hx Orthopedic Surgery: No - PPD History Previous Implant?: Yes Documented Results: Negative w/proof Implanted On Prior R Admission?: Yes Date: 10/19/16 Results: 0 MM PPD to be Administered?: No - Smoking Cessation Smoking history: Former smoker Have you smoked in the past 12 months: No Aproximately how many cigarettes per day: 0 Cigars Per Day: 0 Hx Chewing Tobacco Use: No Initiated information on smoking cessation: No - Substance & Tx. History Hx Alcohol Use: Yes Hx Substance Use: Yes Substance Use Type: Alcohol, Cocaine Hx Substance Use Treatment: Yes (10/17-10/21/16 [facility] - Substances Abused Alcohol Route: Oral Frequency: Daily Amount used: [place] Age of first use: 16 Date of Last Use: 11/16/16 Cocaine Route: Inhalation Frequency: Daily Amount used: 20$ Age of first use: 22 Date of Last Use: 11/16/16 Family Disease History - Family Disease History Family Disease History: Other: Father (), Mother () Admission Physical Exam [facility] - Vital Signs Vital Signs: Vital Signs - 24 hr 11/21/16 18:18 Temperature 98.2 F Pulse Rate 77 Respiratory 20 Rate Blood Pressure 127/71 - Physical General Appearance: Yes: No Apparent Distress, Nourished, Appropriately Dressed HEENTM: Yes: Hearing grossly Normal, Normal ENT Inspection, Normocephalic, Normal Voice Respiratory: Yes: Chest Non-Tender, Lungs Clear, Normal Breath Sounds, No Respiratory Distress, No Accessory Muscle Use Neck: Yes: Supple, Trachea in good position Breast: Yes: Breasts Symetrical Cardiology: Yes: Regular Rhythm, Regular Rate, S1, S2 Abdominal: Yes: Normal Bowel Sounds, Non Tender, Soft Genitourinary: Yes: Within Normal Limits Back: Yes: Normal Inspection Musculoskeletal: Yes: full range of Motion, Gait Steady Extremities: Yes: Normal Inspection, Normal Range of Motion, Non-Tender Neurological: Yes: Fully Oriented, Alert, Motor Strength 5/5, Normal Mood/Affect , Normal Response Integumentary: Yes: Warm Lymphatic: Yes: Within Normal Limits - Diagnostic (1) Alcohol dependence with uncomplicated withdrawal Current Visit: Yes Status: Acute (2) Cocaine dependence, uncomplicated Current Visit: Yes Status: Chronic Cleared for Admission [facility] - Detox or Rehab [facility] Level of Care: Observation Bed Detox Regimen/Protocol: Not Applicable Claeared for Rehab Admission: Yes [facility] Breath Alcohol Content Breath Alcohol Content: 0 Urine Drug Screen - Results Drug Screen Negative: Yes
[2016-11-21] MEDS ORDERED: P-EPHED 60MG/TRIPROLIDI 2.5MG TABLET PO PRN (20:12)
[2016-11-21] MEDS ORDERED: diphenhydrAMINE HCL 50 MG CAPSULE PO PRN (20:12)
[2016-11-21] MEDS ORDERED: LOPERAMIDE HCL 2 MG CAPSULE PO PRN (20:12)
[2016-11-21] MEDS ORDERED: hydrOXYzine PAMOATE 50 MG CAPSULE (FP) PO PRN (20:12)
[2016-11-21] MEDS ORDERED: MAGNESIUM CITRATE 300 ML BOTTLE PO PRN (20:12)
[2016-11-21] MEDS ORDERED: MAG HYDROX/AL HYDROX/SIMETH 30 ML UNIT-DOSE CUP PO PRN (20:12)
[2016-11-21] MEDS ORDERED: guaiFENesin/D-METHORPHAN HB 10 ML UNIT-DOSE CUPS PO PRN (20:12)
[2016-11-21] MEDS ORDERED: MAGNESIUM HYDROX 2400MG/30ML ORAL SUSPENSION 30 ML CUP PO PRN (20:12)
[2016-11-21] MEDS ORDERED: ACETAMINOPHEN 325 MG TABLET (FP) PO PRN (20:12)
[2016-11-21] MEDS ORDERED: MENTHOL/PHENOL 1 EACH UD MM PRN (20:12)
[2016-11-21 23:32] LABS: URINE APPEARANCE CLEAR; URINE BILIRUBIN NEGATIVE (NEGATIVE); URINE BLOOD NEGATIVE (NEGATIVE); URINE COLOR LTYELLOW; URINE GLUCOSE (UA) NEGATIVE (NEGATIVE); URINE KETONE NEGATIVE (NEGATIVE); URINE LEUK ESTERASE NEGATIVE (NEGATIVE); URINE NITRITE NEGATIVE (NEGATIVE); URINE PROTEIN NEGATIVE (NEGATIVE); URINE UROBILINOGEN NEGATIVE mg/dL (0.2-1.0)
[2016-11-21] MEDS: THIAMINE HCL 100 MG TABLET (FP) PO SCH (23:56)
--- NOTE | 2016-11-22 06:50 | HP ---
Psychiatrist Admission - Data Date of interview: 11/22/16 Admission source: Self-referred Identifying data: This is the second [facility] admission for this 56 years old single Black male, father of 2 children, unemployed with no source of income, homeless Medical History: Unremarkable Psychiatric History: Denies history of previous psychiatric treatment Physical/Sexual Abuse/Trauma History: Denies history of emotional, physical and sexual abuse. No service Additional Comment: No criminal history Vital Signs: Vital Signs - 24 hr 11/21/16 11/22/16 11/22/16 18:18 00:30 03:30 Temperature 98.2 F Pulse Rate 77 Respiratory 20 18 18 Rate Blood Pressure 127/71 Allergies/Adverse Reactions: Allergies Allergy/AdvReac Type Severity Reaction Status Date / Time No Known Drug Allergies Allergy Verified 10/17/16 12:58 Date of last physical exam: 11/21/16 Concur with the findings of this exam: Yes - Substance Abuse/Tx History Hx Alcohol Use: Yes Hx Substance Use: Yes Substance Use Type: Alcohol (Started drinking alcohol at age 16, consumes one pint of vodka daily. Last drink on 11/16/16), Cocaine (Started using cocaine at age 22, consumes $20 worth daily. Last Used on 11/16/16) Hx Substance Use Treatment: Yes (18 previous inpt detox & one inpt rehab @ [facility]) - Admission Criteria Previous failed treatment: Yes Poor recovery environment: Yes Lacks judgement: Yes Mental Status Exam - Mental Status Exam Alert and Oriented to: Time, Place, Person Cognitive Function: Fair Patient Appearance: Well Groomed Mood: Hopeful, Euthymic Affect: Appropriate Patient Behavior: Cooperative Speech Pattern: Clear Voice Loudness: Normal Thought Process: Intact, Goal Oriented Thought Disorder: Not Present Hallucinations: Denies Suicidal Ideation: Denies Homicidal Ideation: Denies Insight/Judgement: Fair Sleep: Well Appetite: Fair Muscle strength/Tone: Normal Gait/Station: Normal Psychiatric Findings - Problem List ([place] 1, 2,3) (1) Alcohol dependence Current Visit: No Status: Acute (2) Cocaine dependence Current Visit: No Status: Acute - Initial Treatment Plan Initial Treatment Plan: Monitor progress
[2016-11-22] MEDS: PRENATAL VITAMINS W/ FOLIC ACID TABLET (FP) PO SCH (10:07)
[2016-11-22] MEDS: ASPIRIN 81 MG CHEWABLE TABLETS PO SCH (10:07)
[2016-11-22 14:08] LABS: MCH 28.5 pg (25.7-33.7); MCHC 31.8 g/dl (32.0-35.9); MEAN CELL VOLUME 89.7 fl (80-96); MEAN PLT VOLUME 9.6 fl (7.5-11.1); PLATELET COUNT 209 K/MM3 (134-434); RDW 13.7 % (11.9-15.9); WHITE BLOOD COUNT 8.5 K/mm3 (4.0-10.0)
[2016-11-22 14:29] LABS: ALK PHOS 66 U/L (45-117); ANION GAP 10 (8-16); BILIRUBIN,TOTAL 0.5 mg/dL (0.2-1.0); CALCIUM 9.4 mg/dL (8.5-10.1); CO2 26 mmol/L (21-32); CREATININE 1.2 mg/dL (0.7-1.3); GLUCOSE,RANDOM 120 mg/dL (74-106); SGOT/AST 16 U/L (15-37); SGPT/ALT 25 U/L (12-78); TOT PROT 7.2 g/dl (6.4-8.2)
--- NOTE | 2016-11-22 22:36 | EKG ---
Test Reason : Blood Pressure : / mmHG Vent. Rate : 069 BPM Atrial Rate : 069 BPM P-R Int : 154 ms QRS Dur : 086 ms QT Int : 362 ms P-R-T Axes : 065 031 031 degrees QTc Int : 387 ms NORMAL SINUS RHYTHM SEPTAL INFARCT (CITED ON OR BEFORE 29-MAY-2016) ABNORMAL ECG WHEN COMPARED WITH ECG OF 17-OCT-2016 12:54, NO SIGNIFICANT CHANGE WAS FOUND REPEAT EKG IF CLINICALLY INDICATED Confirmed by BERNARDO FERRARO MD ([id number]) on 11/22/2016 10:36:23 PM Referred By: Confirmed By:BERNARDO FERRARO MD
[2016-11-22] MEDS: THIAMINE HCL 100 MG TABLET (FP) PO SCH (22:37)
[2016-11-23 06:46] VITALS: BP 114/66; PULSE 61; TEMP 98.1
[2016-11-23] MEDS: ASPIRIN 81 MG CHEWABLE TABLETS PO SCH (10:16)
[2016-11-23] MEDS: PRENATAL VITAMINS W/ FOLIC ACID TABLET (FP) PO SCH (10:16)
== END 2016-11-23 12:20 | disposition left against medical advice (07) | DRG 770 ==
LOC: YASAS 15:40 → Y3W 19:36
PROVIDERS: ADMIT Psychiatry & Neurology Psychiatry; ATTEND Psychiatry & Neurology Psychiatry
PROC: HZ42ZZZ Group Counseling for Substance Abuse Treatment, Cognitive-Behavioral (ICD-10-PCS; principal; 2016-11-21)
DX: F10.20 Alcohol dependence, uncomplicated (principal); F14.20 Cocaine dependence, uncomplicated; Z87.891 Personal history of nicotine dependence
CPT/HCPCS: 36415; 80053; 81003; 85027; 86593; 93005; 93010

== ENCOUNTER 2017-01-27 10:03 | Inpatient (IN) | payer OTHER ==
[2017-01-27 10:09] VITALS: BMI 26.4
--- NOTE | 2017-01-27 12:07 | HP ---
CIWA Score - CIWA Score Nausea/Vomitin-No Nausea/No Vomiting Muscle Tremors: 4-Moderate,w/Arms Extend Anxiety: 3 Agitation: 3 Paroxysmal Sweats: 3 Orientation: 0-Oriented Tacttile Disturbances: 0-None Auditory Disturbances: 0-None Visual Disturbances: 0-None Headache: 2-Mild CIWA-Ar Total Score: 15 Admission ROS [facility] - HPI Chief Complaint: I am here for detox. Allergies/Adverse Reactions: Allergies Allergy/AdvReac Type Severity Reaction Status Date / Time No Known Drug Allergies Allergy Verified 01/27/17 11:22 History of Present Illness: pt is a 56yr old male with a history of alcohol, xanax dependence seeking detox for treatment. pt states he takes percocets but doesnt need detox from it. pt does not like methadone. he will be ok with just the librium detox. Exam Limitations: No Limitations - Ebola screening Have you traveled outside of the country in the last 21 days: No Have you had contact with anyone from an Ebola affected area: No Have you been sick,other than usual withdrawal symptoms: No Do you have a fever: No - Review of Systems Constitutional: Chills, Diaphoresis, Changes in sleep EENT: reports: Tearing, Nose Congestion Respiratory: reports: No Symptoms reported Cardiac: reports: Syncope GI: reports: Diarrhea, Poor Appetite, Poor Fluid Intake : reports: No Symptoms Reported Musculoskeletal: reports: Back Pain, Joint Pain Integumentary: reports: Flushing, Sweating Endocrine: reports: Excessive Sweating, Flushing, Intolerance to Cold, Intolerance to Heat Hematology: reports: No Symptoms Reported Psychiatric: reports: Judgement Intact, Mood/Affect Appropiate, Orientated x3, Agitated, Anxious Other Systems: Reviewed and Negative Patient History - Patient Medical History Hx Anemia: No Hx Asthma: No Hx Chronic Obstructive Pulmonary Disease (COPD): No Hx Cancer: No Hx Cardiac Disorders: No Hx Congestive Heart Failure: No Hx Hypertension: No Hx Hypercholesterolemia: No Hx Pacemaker: No HX Cerebrovascular Accident: No Hx Seizures: No Hx Dementia: No Hx Diabetes: No Hx Gastrointestinal Disorders: No Hx Liver Disease: No Hx Genitourinary Disorders: No Hx Sexually Transmitted Disorders: No Hx Renal Disease (ESRD): No Hx Thyroid Disease: No Hx Human Immunodeficiency Virus (HIV): No (negative) Hx Hepatitis C: No (negative) Hx Depression: No Hx Suicide Attempt: No Hx Bipolar Disorder: No Hx Schizophrenia: No - Patient Surgical History Past Surgical History: No Hx Neurologic Surgery: No Hx Cataract Extraction: No Hx Cardiac Surgery: No Hx Lung Surgery: No Hx Breast Surgery: No Hx Breast Biopsy: No Hx Abdominal Surgery: No Hx Appendectomy: No Hx Cholecystectomy: No Hx Genitourinary Surgery: No Hx Section: No Hx Orthopedic Surgery: No Anesthesia Reaction: No - PPD History Previous Implant?: Yes Documented Results: Negative w/proof Date: 10/19/16 Results: 0 MM PPD to be Administered?: No - Reproductive History Patient is a Female of Child Bearing Age (11 -55 yrs old): No - Smoking Cessation Smoking history: Current every day smoker Have you smoked in the past 12 months: Yes Aproximately how many cigarettes per day: 10 Cigars Per Day: 0 Hx Chewing Tobacco Use: No Initiated information on smoking cessation: Yes 'Breaking Loose' booklet given: 01/27/17 - Substance & Tx. History Hx Alcohol Use: Yes Hx Substance Use: Yes Substance Use Type: Alcohol, Cocaine, Heroin, Tranquilizers Hx Substance Use Treatment: Yes (last detox 10/2016) - Substances Abused Alprazolam (Xanax) Route: Oral Frequency: Daily Amount used: 2 [place]KA Age of first use: 16 Date of Last Use: 01/26/17 Crack Route: Smoking Frequency: Daily Amount used: $20 Age of first use: 22 Date of Last Use: 01/26/17 PERCOCET Route: Oral Frequency: 3-6 times per week Amount used: 5- 10MG PILLS Age of first use: 39 Date of Last Use: 01/26/17 Family Disease History - Family Disease History Family Disease History: Other: Father (), Mother () Admission Physical Exam [facility] - Vital Signs Vital Signs: Vital Signs - 24 hr 01/27/17 10:04 Temperature 98.1 F Pulse Rate 80 Respiratory 18 Rate Blood Pressure 118/66 - Physical General Appearance: Yes: Appropriately Dressed, Tremorous, Irritable, Sweating, Anxious HEENTM: Yes: Hearing grossly Normal, Normal Voice, Rhinorrhea Respiratory: Yes: Lungs Clear, Normal Breath Sounds, No Respiratory Distress Neck: Yes: Within Normal Limits Breast: Yes: Within Normal Limits Cardiology: Yes: Regular Rhythm, Regular Rate, S1, S2 Abdominal: Yes: Normal Bowel Sounds, Non Tender Genitourinary: Yes: Within Normal Limits Back: Yes: Normal Inspection Musculoskeletal: Yes: Gait Steady, Back pain Extremities: Yes: Normal Capillary Refill, Normal Inspection, Tremors Neurological: Yes: Fully Oriented, Alert, Normal Response Integumentary: Yes: Normal Color, Diaphoresis Lymphatic: Yes: Within Normal Limits - Diagnostic (1) Alcohol dependence with uncomplicated withdrawal Current Visit: Yes Status: Chronic (2) Cocaine dependence Current Visit: Yes Status: Chronic (3) Nicotine dependence Current Visit: Yes Status: Chronic Qualifiers: Nicotine product type: cigarettes Substance use status: uncomplicated Qualified Code(s): F17.210 - Nicotine dependence, cigarettes, uncomplicated (4) Sedative, hypnotic or anxiolytic dependence, uncomplicated Current Visit: Yes Status: Chronic Cleared for Admission [facility] - Detox or Rehab [facility] Level of Care: Medically Managed Detox Regimen/Protocol: Librium S Breath Alcohol Content Breath Alcohol Content: 0 Urine Drug Screen - Results Drug Screen Negative: No Urine Drug Screen Results: ELYSIA-Cocaine, OXY-Oxycodone
[2017-01-27] MEDS ORDERED: guaiFENesin/D-METHORPHAN HB 10 ML UNIT-DOSE CUPS PO PRN (12:13)
[2017-01-27] MEDS ORDERED: LOPERAMIDE HCL 2 MG CAPSULE PO PRN (12:13)
[2017-01-27] MEDS ORDERED: MAGNESIUM HYDROX 2400MG/30ML ORAL SUSPENSION 30 ML CUP PO PRN (12:13)
[2017-01-27] MEDS ORDERED: NICOTINE POLACRILEX 4 MG GUM BC PRN (12:13)
[2017-01-27] MEDS ORDERED: ACETAMINOPHEN 325 MG TABLET (FP) PO PRN (12:13)
[2017-01-27] MEDS ORDERED: hydrOXYzine PAMOATE 50 MG CAPSULE (FP) PO PRN (12:13)
[2017-01-27] MEDS ORDERED: MENTHOL/PHENOL 1 EACH UD MM PRN (12:13)
[2017-01-27] MEDS ORDERED: P-EPHED 60MG/TRIPROLIDI 2.5MG TABLET PO PRN (12:13)
[2017-01-27] MEDS ORDERED: MAG HYDROX/AL HYDROX/SIMETH 30 ML UNIT-DOSE CUP PO PRN (12:13)
[2017-01-27] MEDS ORDERED: IBUPROFEN 400 MG TABLET (FP) PO PRN (12:13)
[2017-01-27] MEDS ORDERED: MAGNESIUM CITRATE 300 ML BOTTLE PO PRN (12:13)
[2017-01-27] MEDS ORDERED: chlordiazePOXIDE HCL 25 MG CAPSULE PO PRN (12:13)
[2017-01-27] MEDS ORDERED: chlordiazePOXIDE HCL 25 MG CAPSULE PO ONE (14:00)
--- NOTE | 2017-01-27 15:02 | CONSULT ---
[facility] Psychiatric Consult - Data Date of interview: 01/27/17 Admission source: [facility] Identifying data: Readmission to [facility] for this 56 y/o AA male seeking detox treatment on for alcohol and cocaine dependence.Patient is single without children,homeless,unemployed and deprived of any source of income. Substance Abuse History: Discussed in this session.Patient endorses active use of alcohol and cocaine.Describes his use of opiate as " irregular." See [facility] report for details : Smoking history: Current every day smoker. Have you smoked in the past 12 months: Yes. Aproximately how many cigarettes per day: 10. Cigars Per Day: 0. Hx Chewing Tobacco Use: No. Initiated information on smoking cessation: Yes. 'Breaking Loose' booklet given: 01/27/17. - Substance & Tx. History. Hx Alcohol Use: Yes. Hx Substance Use: Yes. Substance Use Type : Alcohol, Cocaine, Heroin, Tranquilizers. Hx Substance Use Treatment: Yes ( last detox 10/2016). - Substances Abused. Alprazolam (Xanax). Route: Oral. Frequency: Daily. Amount used: 2 PINTS [place]ODKA. Age of first use: 16. Date of Last Use: 01/26/17. Crack. Route: Smoking. Frequency: Daily. Amount used: $20. Age of first use: 22. Date of Last Use: 01/26/17. PERCOCET. Route: Oral. Frequency: 3-6 times per week. Amount used: 5- 10MG PILLS. Age of first use: 39. Date of Last Use: 01/26/17 Medical History: Patient reports good general health. Psychiatric History: Patient denies. Physical/Sexual Abuse/Trauma History: Patient denies. Additional Comment: Urine Drug Screen Results: ELYSIA-Cocaine, OXY-Oxycodone.Noted. Mental Status Exam - Mental Status Exam Alert and Oriented to: Time, Place, Person Cognitive Function: Good Patient Appearance: Well Groomed Mood: Hopeful, Euthymic Affect: Normal Range Patient Behavior: Appropriate, Cooperative Speech Pattern: Clear Voice Loudness: Normal Thought Process: Intact, Goal Oriented Thought Disorder: Not Present Hallucinations: Denies Suicidal Ideation: Denies Homicidal Ideation: Denies Insight/Judgement: Poor Sleep: Well Appetite: Good Muscle strength/Tone: Normal Gait/Station: Normal Psychiatric Findings - Problem List ([place] 1, 2,3) (1) Alcohol dependence with uncomplicated withdrawal Current Visit: Yes Status: Acute (2) Cocaine dependence Current Visit: Yes Status: Acute (3) Nicotine dependence Current Visit: Yes Status: Acute Qualifiers: Nicotine product type: cigarettes Substance use status: uncomplicated Qualified Code(s): F17.210 - Nicotine dependence, cigarettes, uncomplicated - Initial Treatment Plan Initial Treatment Plan: Psychoeducation.Detoxification.Observation.
[2017-01-27] MEDS: NICOTINE 21 MG/24 HOURS TOPICAL PATCH TD SCH (16:27)
[2017-01-27] MEDS: chlordiazePOXIDE HCL 25 MG CAPSULE PO SCH ×2 (17:22→22:23)
[2017-01-27] MEDS: TOLNAFTATE 1% CREAM 15 GM TUBE TP SCH (22:22)
[2017-01-27] MEDS: THIAMINE HCL 100 MG TABLET (FP) PO SCH (22:23)
[2017-01-28 02:03] LABS: URINE APPEARANCE TURBID; URINE BILIRUBIN NEGATIVE (NEGATIVE); URINE BLOOD NEGATIVE (NEGATIVE); URINE COLOR YELLOW; URINE GLUCOSE (UA) NEGATIVE (NEGATIVE); URINE KETONE NEGATIVE (NEGATIVE); URINE NITRITE NEGATIVE (NEGATIVE); URINE UROBILINOGEN NEGATIVE mg/dL (0.2-1.0)
[2017-01-28 02:08] LABS: URINE PROTEIN 1+ (NEGATIVE)
[2017-01-28 02:17] LABS: URINE BACTERIA RARE /hpf (NONE SEEN); URINE MUCUS MANY; URINE RBC 2 /hpf (0-3)
[2017-01-28] MEDS: chlordiazePOXIDE HCL 25 MG CAPSULE PO SCH ×4 (06:03→22:32)
[2017-01-28 09:21] LABS: HIV 1 & 2 AB NEGATIVE; HIV 1 AGp24 NEGATIVE
[2017-01-28] MEDS ORDERED: NICOTINE 21 MG/24 HOURS TOPICAL PATCH TD SCH (10:00)
[2017-01-28 10:15] LABS: MCH 28.5 pg (25.7-33.7); MCHC 32.4 g/dl (32.0-35.9); MEAN PLT VOLUME 9.8 fl (7.5-11.1); PLATELET COUNT 237 K/MM3 (134-434); RDW 13.7 % (11.9-15.9); WHITE BLOOD COUNT 9.2 K/mm3 (4.0-10.0)
[2017-01-28] MEDS: PRENATAL VITAMINS W/ FOLIC ACID TABLET (FP) PO SCH (10:43)
[2017-01-28] MEDS: TOLNAFTATE 1% CREAM 15 GM TUBE TP SCH ×2 (10:44→23:14)
[2017-01-28] MEDS: NICOTINE 21 MG/24 HOURS TOPICAL PATCH TD SCH (10:44)
[2017-01-28 11:03] LABS: ALBUMIN 4.2 g/dl (3.4-5.0); ALK PHOS 72 U/L (45-117); ANION GAP 7 (8-16); BILIRUBIN,TOTAL 0.5 mg/dL (0.2-1.0); CALCIUM 9.3 mg/dL (8.5-10.1); CO2 26 mmol/L (21-32); CREATININE 1.3 mg/dL (0.7-1.3); GLUCOSE,RANDOM 105 mg/dL (74-106); SGOT/AST 21 U/L (15-37); SGPT/ALT 23 U/L (12-78); TOT PROT 7.4 g/dl (6.4-8.2)
[2017-01-28 11:15] LABS: URINE LEUK ESTERASE Negative (NEGATIVE)
--- NOTE | 2017-01-28 11:55 | PN ---
[facility] CIWA - CIWA Score Nausea/Vomitin Muscle Tremors: 3 Anxiety: 3 Agitation: 3 Paroxysmal Sweats: 1-Minimal Palms Moist Orientation: 0-Oriented Tacttile Disturbances: 1-Very Mild Itch/Numbness Auditory Disturbances: 1-Very Mild Visual Disturbances: 0-None Headache: 2-Mild CIWA-Ar Total Score: 17 S Progress Note (SOAP) Subjective: alert,irritable,anxious,interrupted sleep,tremor Objective: 01/28/17 11:51 Vital Signs Temperature 98.1 F 01/28/17 11:21 Pulse Rate 74 01/28/17 11:21 Respiratory Rate 18 01/28/17 11:21 Blood Pressure 109/45 01/28/17 11:21 O2 Sat by Pulse Oximetry (%) 01/28/17 11:52 ekg sinus bradycardia,57/min no chest pain,no sob,no dizziness 01/28/17 11:53 Laboratory Last Values WBC 9.2 K/mm3 (4.0-10.0) 01/28/17 06:00 RBC 4.65 M/mm3 (4.00-5.60) 01/28/17 06:00 Hgb 13.3 GM/dL (11.7-16.9) 01/28/17 06:00 Hct 40.9 % (35.4-49) 01/28/17 06:00 MCV 88.0 fl (80-96) 01/28/17 06:00 MCH 28.5 pg (25.7-33.7) 01/28/17 06:00 MCHC 32.4 g/dl (32.0-35.9) 01/28/17 06:00 RDW 13.7 % (11.9-15.9) 01/28/17 06:00 Plt Count 237 K/MM3 (134-434) 01/28/17 06:00 MPV 9.8 fl (7.5-11.1) 01/28/17 06:00 Manual Slide Review No Result Required. 01/28/17 06:00 Sodium 141 mmol/L (136-145) 01/28/17 06:00 Potassium 4.2 mmol/L (3.5-5.1) 01/28/17 06:00 Chloride 108 mmol/L (98-107) H 01/28/17 06:00 Carbon Dioxide 26 mmol/L (21-32) 01/28/17 06:00 Anion Gap 7 (8-16) L 01/28/17 06:00 BUN 19 mg/dL (7-18) H 01/28/17 06:00 Creatinine 1.3 mg/dL (0.7-1.3) 01/28/17 06:00 Creat Clearance w eGFR 57.31 (>60) 01/28/17 06:00 Random Glucose 105 mg/dL (74-106) 01/28/17 06:00 Calcium 9.3 mg/dL (8.5-10.1) 01/28/17 06:00 Total Bilirubin 0.5 mg/dL (0.2-1.0) 01/28/17 06:00 AST 21 U/L (15-37) D 01/28/17 06:00 ALT 23 U/L (12-78) 01/28/17 06:00 Alkaline Phosphatase 72 U/L (45-117) 01/28/17 06:00 Total Protein 7.4 g/dl (6.4-8.2) 01/28/17 06:00 Albumin 4.2 g/dl (3.4-5.0) 01/28/17 06:00 Urine Color Yellow 01/27/17 18:08 Urine Appearance Turbid 01/27/17 18:08 Urine pH 5.0 (5.0-8.0) 01/27/17 18:08 Ur Specific [place] 1.035 (1.001-1.035) 01/27/17 18:08 Urine Protein 1+ (NEGATIVE) H 01/27/17 18:08 Urine Glucose (UA) Negative (NEGATIVE) 01/27/17 18:08 Urine Ketones Negative (NEGATIVE) 01/27/17 18:08 Urine Blood Negative (NEGATIVE) 01/27/17 18:08 Urine Nitrite Negative (NEGATIVE) 01/27/17 18:08 Urine Bilirubin Negative (NEGATIVE) 01/27/17 18:08 Urine Urobilinogen Negative mg/dL (0.2-1.0) 01/27/17 18:08 Ur Leukocyte Esterase Negative (NEGATIVE) 01/27/17 18:08 Urine WBC (Auto) None /hpf (3-5) 01/27/17 18:08 Urine RBC (Auto) 2 /hpf (0-3) 01/27/17 18:08 Ur Epithelial Cells Rare /HPF (FEW) 01/27/17 18:08 Urine Bacteria Rare /hpf (NONE SEEN) 01/27/17 18:08 Urine Mucus Many 01/27/17 18:08 HIV 1&2 Antibody Screen Negative 01/27/17 11:40 HIV P24 Antigen Negative 01/27/17 11:40 Assessment: 01/28/17 11:55 withdrawal symptom Plan: continue detox,encourage oral fluid
[2017-01-28] MEDS: AMMONIUM LACTATE 12% LOTION 225 GM BOTTLE TP SCH ×2 (14:29→22:32)
[2017-01-28] MEDS: THIAMINE HCL 100 MG TABLET (FP) PO SCH (22:32)
[2017-01-29] MEDS: chlordiazePOXIDE HCL 25 MG CAPSULE PO SCH ×2 (05:23→10:39)
--- NOTE | 2017-01-29 09:51 | PN ---
S CIWA - CIWA Score Nausea/Vomitin Muscle Tremors: 3 Anxiety: 3 Agitation: 2 Paroxysmal Sweats: 1-Minimal Palms Moist Orientation: 0-Oriented Tacttile Disturbances: 1-Very Mild Itch/Numbness Auditory Disturbances: 1-Very Mild Visual Disturbances: 0-None Headache: 2-Mild CIWA-Ar Total Score: 16 S Progress Note (SOAP) Subjective: alert,irritable,anxious,interrupted sleep,tremor Objective: 01/29/17 09:49 Vital Signs Temperature 98 F 01/29/17 09:38 Pulse Rate 70 01/29/17 09:38 Respiratory Rate 16 01/29/17 09:38 Blood Pressure 128/76 01/29/17 09:38 O2 Sat by Pulse Oximetry (%) Laboratory Last Values WBC 9.2 K/mm3 (4.0-10.0) 01/28/17 06:00 RBC 4.65 M/mm3 (4.00-5.60) 01/28/17 06:00 Hgb 13.3 GM/dL (11.7-16.9) 01/28/17 06:00 Hct 40.9 % (35.4-49) 01/28/17 06:00 MCV 88.0 fl (80-96) 01/28/17 06:00 MCH 28.5 pg (25.7-33.7) 01/28/17 06:00 MCHC 32.4 g/dl (32.0-35.9) 01/28/17 06:00 RDW 13.7 % (11.9-15.9) 01/28/17 06:00 Plt Count 237 K/MM3 (134-434) 01/28/17 06:00 MPV 9.8 fl (7.5-11.1) 01/28/17 06:00 Manual Slide Review No Result Required. 01/28/17 06:00 Sodium 141 mmol/L (136-145) 01/28/17 06:00 Potassium 4.2 mmol/L (3.5-5.1) 01/28/17 06:00 Chloride 108 mmol/L (98-107) H 01/28/17 06:00 Carbon Dioxide 26 mmol/L (21-32) 01/28/17 06:00 Anion Gap 7 (8-16) L 01/28/17 06:00 BUN 19 mg/dL (7-18) H 01/28/17 06:00 Creatinine 1.3 mg/dL (0.7-1.3) 01/28/17 06:00 Creat Clearance w eGFR 57.31 (>60) 01/28/17 06:00 Random Glucose 105 mg/dL (74-106) 01/28/17 06:00 Calcium 9.3 mg/dL (8.5-10.1) 01/28/17 06:00 Total Bilirubin 0.5 mg/dL (0.2-1.0) 01/28/17 06:00 AST 21 U/L (15-37) D 01/28/17 06:00 ALT 23 U/L (12-78) 01/28/17 06:00 Alkaline Phosphatase 72 U/L (45-117) 01/28/17 06:00 Total Protein 7.4 g/dl (6.4-8.2) 01/28/17 06:00 Albumin 4.2 g/dl (3.4-5.0) 01/28/17 06:00 Urine Color Yellow 01/27/17 18:08 Urine Appearance Turbid 01/27/17 18:08 Urine pH 5.0 (5.0-8.0) 01/27/17 18:08 Ur Specific [place] 1.035 (1.001-1.035) 01/27/17 18:08 Urine Protein 1+ (NEGATIVE) H 01/27/17 18:08 Urine Glucose (UA) Negative (NEGATIVE) 01/27/17 18:08 Urine Ketones Negative (NEGATIVE) 01/27/17 18:08 Urine Blood Negative (NEGATIVE) 01/27/17 18:08 Urine Nitrite Negative (NEGATIVE) 01/27/17 18:08 Urine Bilirubin Negative (NEGATIVE) 01/27/17 18:08 Urine Urobilinogen Negative mg/dL (0.2-1.0) 01/27/17 18:08 Ur Leukocyte Esterase Negative (NEGATIVE) 01/27/17 18:08 Urine WBC (Auto) None /hpf (3-5) 01/27/17 18:08 Urine RBC (Auto) 2 /hpf (0-3) 01/27/17 18:08 Ur Epithelial Cells Rare /HPF (FEW) 01/27/17 18:08 Urine Bacteria Rare /hpf (NONE SEEN) 01/27/17 18:08 Urine Mucus Many 01/27/17 18:08 RPR Titer Nonreactive (NONREACTIVE) 01/28/17 06:00 HIV 1&2 Antibody Screen Negative 01/27/17 11:40 HIV P24 Antigen Negative 01/27/17 11:40 Assessment: 01/29/17 09:51 withdrawal symptom Plan: continue detox,encourage oral fluid
[2017-01-29] MEDS: NICOTINE 21 MG/24 HOURS TOPICAL PATCH TD SCH (10:39)
[2017-01-29] MEDS: TOLNAFTATE 1% CREAM 15 GM TUBE TP SCH ×2 (10:39→22:26)
[2017-01-29] MEDS: AMMONIUM LACTATE 12% LOTION 225 GM BOTTLE TP SCH ×2 (10:39→22:26)
[2017-01-29] MEDS: PRENATAL VITAMINS W/ FOLIC ACID TABLET (FP) PO SCH (10:39)
[2017-01-29] MEDS: chlordiazePOXIDE 5 MG CAPSULE PO SCH ×2 (17:37→22:26)
[2017-01-29] MEDS: THIAMINE HCL 100 MG TABLET (FP) PO SCH (22:26)
[2017-01-30] MEDS: chlordiazePOXIDE 5 MG CAPSULE PO SCH ×2 (05:32→10:09)
[2017-01-30] MEDS ORDERED: ASPIRIN 81 MG CHEWABLE TABLETS PO SCH (10:00)
[2017-01-30] MEDS: TOLNAFTATE 1% CREAM 15 GM TUBE TP SCH ×2 (10:09→22:11)
[2017-01-30] MEDS: PRENATAL VITAMINS W/ FOLIC ACID TABLET (FP) PO SCH (10:09)
[2017-01-30] MEDS: NICOTINE 21 MG/24 HOURS TOPICAL PATCH TD SCH (10:09)
[2017-01-30] MEDS: AMMONIUM LACTATE 12% LOTION 225 GM BOTTLE TP SCH ×2 (10:09→22:11)
--- NOTE | 2017-01-30 10:42 | PN ---
BHS Progress Note (SOAP) Subjective: anxiety little sweats Objective: 01/30/17 10:41 Vital Signs Temperature 96 F L 01/30/17 09:28 Pulse Rate 75 01/30/17 09:28 Respiratory Rate 18 01/30/17 09:28 Blood Pressure 132/75 01/30/17 09:28 O2 Sat by Pulse Oximetry (%) aaox3 ambulating no acute distress Assessment: 01/30/17 10:42 mild withdrawal sx Plan: continue detox increase fluids d/c in am
[2017-01-30] MEDS: chlordiazePOXIDE HCL 10 MG CAPSULE PO SCH ×2 (18:11→22:12)
[2017-01-30] MEDS: THIAMINE HCL 100 MG TABLET (FP) PO SCH (22:11)
--- NOTE | 2017-01-31 01:05 | EKG ---
Test Reason : Blood Pressure : / mmHG Vent. Rate : 057 BPM Atrial Rate : 057 BPM P-R Int : 154 ms QRS Dur : 086 ms QT Int : 410 ms P-R-T Axes : 062 034 034 degrees QTc Int : 399 ms SINUS BRADYCARDIA SEPTAL INFARCT (CITED ON OR BEFORE 29-MAY-2016) ABNORMAL ECG WHEN COMPARED WITH ECG OF 21-NOV-2016 20:51, NO SIGNIFICANT CHANGE WAS FOUND Confirmed by KRYSTINA FIORE MD ([id number]) on 01/31/2017 1:05:21 AM Referred By: Confirmed By:KRYSTINA FIORE MD
[2017-01-31 06:29] VITALS: BP 103/59; PULSE 62; TEMP 98.1
[2017-01-31] MEDS: chlordiazePOXIDE HCL 10 MG CAPSULE PO SCH (07:03)
--- NOTE | 2017-01-31 08:38 | DS ---
[facility] Detox Discharge Summary Admission Date: 01/27/17 Discharge Date: 01/31/17 - History Present History: Alcohol Dependence, Cocaine Dependence, Sedative Dependence - Physical Exam Results Vital Signs: Vital Signs Temperature 98.1 F 01/31/17 06:00 Pulse Rate 62 01/31/17 06:00 Respiratory Rate 18 01/31/17 06:00 Blood Pressure 103/59 01/31/17 06:00 O2 Sat by Pulse Oximetry (%) - Treatment Hospital Course: Detox Protocol Followed, Detoxed Safely, Responded well, Discharged Condition Good, Rehab Referral Accepted - Medication Discharge Medications: Ambulatory Orders NK [No Known Home Medication] 01/08/15 - Diagnosis (1) Alcohol dependence with uncomplicated withdrawal Current Visit: Yes Status: Chronic (2) Cocaine dependence Current Visit: Yes Status: Chronic (3) Nicotine dependence Current Visit: Yes Status: Chronic Qualifiers: Nicotine product type: cigarettes Substance use status: uncomplicated Qualified Code(s): F17.210 - Nicotine dependence, cigarettes, uncomplicated (4) Sedative, hypnotic or anxiolytic dependence, uncomplicated Current Visit: Yes Status: Chronic - AMA Did Patient Leave Against Medical Advice: No (going to rehab on his own)
== END 2017-01-31 09:30 | disposition home or self-care (01) | DRG 774 ==
LOC: YASAS 10:03 → Y6N 12:31
PROVIDERS: ADMIT Internal Medicine; ATTEND Internal Medicine
PROC: HZ2ZZZZ Detoxification Services for Substance Abuse Treatment (ICD-10-PCS; principal; 2017-01-27)
DX: F13.230 Sedative, hypnotic or anxiolytic dependence with withdrawal, uncomplicated (principal); F10.230 Alcohol dependence with withdrawal, uncomplicated; F14.20 Cocaine dependence, uncomplicated; F17.210 Nicotine dependence, cigarettes, uncomplicated
CPT/HCPCS: 36415; 80053; 81003; 81015; 85027; 86593; 87389; 93005; 93010

== ENCOUNTER 2017-03-04 13:09 | Inpatient (IN) | payer MEDICARE, OTHER ==
[2017-03-04 14:04] VITALS: BMI 25.1
--- NOTE | 2017-03-04 14:08 | HP ---
CIWA Score - CIWA Score Nausea/Vomitin-Mild Nausea/No Vomiting Muscle Tremors: 4-Moderate,w/Arms Extend Anxiety: 4-Mod. Anxious/Guarded Agitation: 1-Slight > Activity Paroxysmal Sweats: No Perspiration Orientation: 0-Oriented Tacttile Disturbances: 1-Very Mild Itch/Numbness Auditory Disturbances: 1-Very Mild Visual Disturbances: 1-Very Mild Sensitivity Headache: 1-Very Mild CIWA-Ar Total Score: 14 Admission ROS BHS - HPI Chief Complaint: I want to change my life, stop using. Allergies/Adverse Reactions: Allergies Allergy/AdvReac Type Severity Reaction Status Date / Time No Known Drug Allergies Allergy Verified 01/27/17 11:22 History of Present Illness: 56 yo gentleman here for detox from alcohol, also using cocaine. Last here a month ago, one of multiple admissions for detox. States last time he left there was no rehab bed. No seizures, does have black outs. Exam Limitations: Clinical Condition - Ebola screening Have you traveled outside of the country in the last 21 days: No Have you had contact with anyone from an Ebola affected area: No Have you been sick,other than usual withdrawal symptoms: No Do you have a fever: No - Review of Systems Constitutional: Chills, Loss of Appetite, Malaise, Night Sweats, Changes in sleep, Weakness EENT: reports: No Symptoms Reported Respiratory: reports: No Symptoms reported Cardiac: reports: No Symptoms Reported GI: reports: Nausea, Indigestion : reports: Frequency Musculoskeletal: reports: Back Pain, Muscle Pain Integumentary: reports: Dryness Neuro: reports: Headache Endocrine: reports: No Symptoms Reported Hematology: reports: No Symptoms Reported Psychiatric: reports: Judgement Intact, Mood/Affect Appropiate, Orientated x3, Anxious Other Systems: Reviewed and Negative Patient History - Patient Medical History Hx Anemia: No Hx Asthma: No Hx Chronic Obstructive Pulmonary Disease (COPD): No Hx Cancer: No Hx Cardiac Disorders: No Hx Congestive Heart Failure: No Hx Hypertension: No Hx Hypercholesterolemia: No Hx Pacemaker: No HX Cerebrovascular Accident: No Hx Seizures: No Hx Dementia: No Hx Diabetes: No Hx Gastrointestinal Disorders: No Hx Liver Disease: No Hx Genitourinary Disorders: No Hx Sexually Transmitted Disorders: No Hx Renal Disease (ESRD): No Hx Thyroid Disease: No Hx Human Immunodeficiency Virus (HIV): No Hx Hepatitis C: No Hx Depression: No Hx Suicide Attempt: No Hx Bipolar Disorder: No Hx Schizophrenia: No - Patient Surgical History Past Surgical History: No Hx Neurologic Surgery: No Hx Cataract Extraction: No Hx Cardiac Surgery: No Hx Lung Surgery: No Hx Breast Surgery: No Hx Breast Biopsy: No Hx Abdominal Surgery: No Hx Appendectomy: No Hx Cholecystectomy: No Hx Genitourinary Surgery: No Hx Section: No Hx Orthopedic Surgery: No Anesthesia Reaction: No - PPD History Previous Implant?: Yes Documented Results: Negative w/proof Implanted On Prior R Admission?: Yes Date: 10/19/16 Results: 0 MM PPD to be Administered?: No - Reproductive History Patient is a Female of Child Bearing Age (11 -55 yrs old): No (male) - Smoking Cessation Smoking history: Current every day smoker Have you smoked in the past 12 months: Yes Aproximately how many cigarettes per day: 10 Cigars Per Day: 0 Hx Chewing Tobacco Use: No Initiated information on smoking cessation: Yes 'Breaking Loose' booklet given: 03/04/17 (give on floor) - Substance & Tx. History Hx Alcohol Use: Yes Hx Substance Use: Yes Substance Use Type: Alcohol, Cocaine Hx Substance Use Treatment: Yes (detox, rehab) - Substances Abused alcohol Route: Oral Frequency: Daily Amount used: 2 pints, four Locos Age of first use: 16 Date of Last Use: 03/03/17 Cocaine Route: Smoking Frequency: Daily Amount used: $50 Age of first use: 22 Date of Last Use: 03/03/17 Family Disease History - Family Disease History Family Disease History: Heart Disease: Father (, [place]), Other: Grandparent (grandfather - etoh), Father, Mother ( 'natural causes'), Sister (one -healthy), Son (one - healthy) Admission Physical Exam BHS - Vital Signs Vital Signs: Vital Signs Period Temp Pulse Resp BP Sys/Mcdonough Pulse Ox Last 24 Hr 97 F 68 20 122/77 - Physical General Appearance: Yes: Nourished, Appropriately Dressed, Mild Distress HEENTM: Yes: Hearing grossly Normal, Normocephalic, Normal Voice, Pharynx Normal Respiratory: Yes: Normal Breath Sounds, No Respiratory Distress Neck: Yes: No masses,lesions,Nodules, Supple Breast: Yes: Breast Exam Deferred Cardiology: Yes: Regular Rhythm, Regular Rate Abdominal: Yes: Flat, Soft Genitourinary: Yes: Frequency Back: Yes: Normal Inspection Musculoskeletal: Yes: full range of Motion, Gait Steady Extremities: Yes: Normal Inspection, Non-Tender Neurological: Yes: Fully Oriented, Alert, Normal Mood/Affect, Normal Response, Numbness (fingertip numbness) Integumentary: Yes: Normal Color, Warm Lymphatic: Yes: Within Normal Limits - Diagnostic (1) Alcohol dependence with uncomplicated withdrawal Current Visit: Yes Status: Chronic (2) Cocaine dependence, uncomplicated Current Visit: Yes Status: Chronic (3) Nicotine dependence Current Visit: No Status: Chronic Qualifiers: Nicotine product type: cigarettes Substance use status: uncomplicated Qualified Code(s): F17.210 - Nicotine dependence, cigarettes, uncomplicated Cleared for Admission [facility] - Detox or Rehab [facility] Level of Care: Medically Managed Detox Regimen/Protocol: Librium [facility] Breath Alcohol Content Breath Alcohol Content: 0
[2017-03-04] MEDS ORDERED: IBUPROFEN 400 MG TABLET (FP) PO PRN (14:11)
[2017-03-04] MEDS ORDERED: MAGNESIUM HYDROX 2400MG/30ML ORAL SUSPENSION 30 ML CUP PO PRN (14:11)
[2017-03-04] MEDS ORDERED: MENTHOL/PHENOL 1 EACH UD MM PRN (14:11)
[2017-03-04] MEDS ORDERED: MAG HYDROX/AL HYDROX/SIMETH 30 ML UNIT-DOSE CUP PO PRN (14:11)
[2017-03-04] MEDS ORDERED: LOPERAMIDE HCL 2 MG CAPSULE PO PRN (14:11)
[2017-03-04] MEDS ORDERED: guaiFENesin/D-METHORPHAN HB 10 ML UNIT-DOSE CUPS PO PRN (14:11)
[2017-03-04] MEDS ORDERED: ACETAMINOPHEN 325 MG TABLET (FP) PO PRN (14:11)
[2017-03-04] MEDS ORDERED: hydrOXYzine PAMOATE 50 MG CAPSULE (FP) PO PRN (14:11)
[2017-03-04] MEDS ORDERED: P-EPHED 60MG/TRIPROLIDI 2.5MG TABLET PO PRN (14:11)
[2017-03-04] MEDS ORDERED: chlordiazePOXIDE HCL 25 MG CAPSULE PO PRN (14:11)
[2017-03-04] MEDS ORDERED: MAGNESIUM CITRATE 300 ML BOTTLE PO PRN (14:11)
[2017-03-04] MEDS ORDERED: chlordiazePOXIDE HCL 25 MG CAPSULE PO ONE (15:00)
[2017-03-04] MEDS: NICOTINE 21 MG/24 HOURS TOPICAL PATCH TD SCH (16:18)
[2017-03-04 17:49] LABS: URINE APPEARANCE SLCLOUDY; URINE BILIRUBIN NEGATIVE (NEGATIVE); URINE BLOOD NEGATIVE (NEGATIVE); URINE COLOR YELLOW; URINE GLUCOSE (UA) NEGATIVE (NEGATIVE); URINE KETONE NEGATIVE (NEGATIVE); URINE LEUK ESTERASE NEGATIVE (NEGATIVE); URINE NITRITE NEGATIVE (NEGATIVE); URINE PROTEIN NEGATIVE (NEGATIVE)
[2017-03-04] MEDS: chlordiazePOXIDE HCL 25 MG CAPSULE PO SCH ×2 (19:54→22:28)
[2017-03-04] MEDS: THIAMINE HCL 100 MG TABLET (FP) PO SCH (22:28)
[2017-03-05] MEDS: chlordiazePOXIDE HCL 25 MG CAPSULE PO SCH ×4 (05:49→22:17)
[2017-03-05 10:02] LABS: HEMATOCRIT 40.5 % (35.4-49); HEMOGLOBIN 12.5 GM/dL (11.7-16.9); MCH 27.7 pg (25.7-33.7); MEAN CELL VOLUME 89.5 fl (80-96); MEAN PLT VOLUME 9.4 fl (7.5-11.1); PLATELET COUNT 202 K/MM3 (134-434); RBC 4.53 M/mm3 (4.00-5.60); RDW 14.8 % (11.9-15.9); WHITE BLOOD COUNT 6.6 K/mm3 (4.0-10.0)
[2017-03-05 10:27] LABS: ALBUMIN 3.5 g/dl (3.4-5.0); ANION GAP 5 (8-16); BLOOD UREA NITROGEN 13 mg/dL (7-18); CALCIUM 8.6 mg/dL (8.5-10.1); CHLORIDE 111 mmol/L (98-107); CO2 27 mmol/L (21-32); GLUCOSE,RANDOM 98 mg/dL (74-106); POTASSIUM 4.1 mmol/L (3.5-5.1); SGPT/ALT 16 U/L (12-78); SODIUM 143 mmol/L (136-145)
[2017-03-05 10:30] LABS: ALK PHOS 62 U/L (45-117); BILIRUBIN,TOTAL 0.5 mg/dL (0.2-1.0); CREATININE 1.1 mg/dL (0.7-1.3); SGOT/AST 10 U/L (15-37); TOT PROT 6.3 g/dl (6.4-8.2)
--- NOTE | 2017-03-05 10:34 | EKG ---
Test Reason : Blood Pressure : / mmHG Vent. Rate : 063 BPM Atrial Rate : 063 BPM P-R Int : 152 ms QRS Dur : 094 ms QT Int : 400 ms P-R-T Axes : 063 030 054 degrees QTc Int : 409 ms NORMAL SINUS RHYTHM SEPTAL INFARCT (CITED ON OR BEFORE 29-MAY-2016) ABNORMAL ECG WHEN COMPARED WITH ECG OF 27-JAN-2017 14:07, NO SIGNIFICANT CHANGE WAS FOUND BASELINE ARTIFACT Confirmed by TOD PELAEZ, APOORVA ([id number]) on 03/05/2017 10:34:11 AM Referred By: Ezra Cesar Confirmed By:APOORVA BARON MD
[2017-03-05] MEDS: PRENATAL VITAMINS W/ FOLIC ACID TABLET (FP) PO SCH (10:49)
[2017-03-05] MEDS: NICOTINE 21 MG/24 HOURS TOPICAL PATCH TD SCH (10:51)
--- NOTE | 2017-03-05 15:19 | PN ---
S CIWA - CIWA Score Nausea/Vomitin Muscle Tremors: 3 Anxiety: 3 Agitation: 3 Paroxysmal Sweats: 1-Minimal Palms Moist Orientation: 0-Oriented Tacttile Disturbances: 0-None Auditory Disturbances: 0-None Visual Disturbances: 0-None Headache: 0-None Present CIWA-Ar Total Score: 12 S Progress Note (SOAP) Subjective: tremors, restless "white scales on my feet" requesing Ensure Objective: 03/05/17 15:17 Vital Signs Temperature 97.9 F 03/05/17 14:19 Pulse Rate 69 03/05/17 14:19 Respiratory Rate 18 03/05/17 14:19 Blood Pressure 113/68 03/05/17 14:19 O2 Sat by Pulse Oximetry (%) Laboratory Last Values WBC 6.6 K/mm3 (4.0-10.0) 03/05/17 07:45 RBC 4.53 M/mm3 (4.00-5.60) 03/05/17 07:45 Hgb 12.5 GM/dL (11.7-16.9) 03/05/17 07:45 Hct 40.5 % (35.4-49) 03/05/17 07:45 MCV 89.5 fl (80-96) 03/05/17 07:45 MCH 27.7 pg (25.7-33.7) 03/05/17 07:45 MCHC 31.0 g/dl (32.0-35.9) L 03/05/17 07:45 RDW 14.8 % (11.9-15.9) 03/05/17 07:45 Plt Count 202 K/MM3 (134-434) 03/05/17 07:45 MPV 9.4 fl (7.5-11.1) 03/05/17 07:45 Sodium 143 mmol/L (136-145) 03/05/17 07:45 Potassium 4.1 mmol/L (3.5-5.1) 03/05/17 07:45 Chloride 111 mmol/L (98-107) H 03/05/17 07:45 Carbon Dioxide 27 mmol/L (21-32) 03/05/17 07:45 Anion Gap 5 (8-16) L 03/05/17 07:45 BUN 13 mg/dL (7-18) D 03/05/17 07:45 Creatinine 1.1 mg/dL (0.7-1.3) 03/05/17 07:45 Creat Clearance w eGFR > 60 (>60) 03/05/17 07:45 Random Glucose 98 mg/dL (74-106) 03/05/17 07:45 Calcium 8.6 mg/dL (8.5-10.1) 03/05/17 07:45 Total Bilirubin 0.5 mg/dL (0.2-1.0) 03/05/17 07:45 AST 10 U/L (15-37) L D 03/05/17 07:45 ALT 16 U/L (12-78) D 03/05/17 07:45 Alkaline Phosphatase 62 U/L (45-117) 03/05/17 07:45 Total Protein 6.3 g/dl (6.4-8.2) L 03/05/17 07:45 Albumin 3.5 g/dl (3.4-5.0) 03/05/17 07:45 Urine Color Yellow 03/04/17 15:54 Urine Appearance Slcloudy 03/04/17 15:54 Urine pH 5.0 (5.0-8.0) 03/04/17 15:54 Ur Specific [place] 1.025 (1.001-1.035) 03/04/17 15:54 Urine Protein Negative (NEGATIVE) 03/04/17 15:54 Urine Glucose (UA) Negative (NEGATIVE) 03/04/17 15:54 Urine Ketones Negative (NEGATIVE) 03/04/17 15:54 Urine Blood Negative (NEGATIVE) 03/04/17 15:54 Urine Nitrite Negative (NEGATIVE) 03/04/17 15:54 Urine Bilirubin Negative (NEGATIVE) 03/04/17 15:54 Urine Urobilinogen 2.0 mg/dL (0.2-1.0) 03/04/17 15:54 Ur Leukocyte Esterase Negative (NEGATIVE) 03/04/17 15:54 RPR Titer Nonreactive (NONREACTIVE) 03/05/17 07:45 HIV 1&2 Antibody Screen Negative 03/05/17 07:45 HIV P24 Antigen Negative 03/05/17 07:45 labs noted Assessment: 03/05/17 15:17 withdrawal symptoms B/l feet callus Plan: Continue detox Ensure BID, tinactin topical cream
[2017-03-05] MEDS: TOLNAFTATE 1% CREAM 15 GM TUBE TP SCH (22:17)
[2017-03-05] MEDS: THIAMINE HCL 100 MG TABLET (FP) PO SCH (22:17)
[2017-03-06] MEDS: chlordiazePOXIDE HCL 25 MG CAPSULE PO SCH ×2 (05:10→10:18)
[2017-03-06] MEDS: PRENATAL VITAMINS W/ FOLIC ACID TABLET (FP) PO SCH (10:18)
[2017-03-06] MEDS: TOLNAFTATE 1% CREAM 15 GM TUBE TP SCH ×2 (10:18→22:06)
[2017-03-06] MEDS: NICOTINE 21 MG/24 HOURS TOPICAL PATCH TD SCH (10:18)
--- NOTE | 2017-03-06 12:03 | PN ---
S CIWA - CIWA Score Nausea/Vomitin Muscle Tremors: 3 Anxiety: 3 Agitation: 3 Paroxysmal Sweats: 1-Minimal Palms Moist Orientation: 0-Oriented Tacttile Disturbances: 1-Very Mild Itch/Numbness Auditory Disturbances: 1-Very Mild Visual Disturbances: 0-None Headache: 2-Mild CIWA-Ar Total Score: 17 BHS Progress Note (SOAP) Subjective: ALERT,IRRITABLE,ANXIOUS,INTERRUPTED SLEEP,DRY SKIN Objective: 03/06/17 12:01 Vital Signs Temperature 98.8 F 03/06/17 10:00 Pulse Rate 70 03/06/17 10:00 Respiratory Rate 18 03/06/17 10:00 Blood Pressure 139/73 03/06/17 10:00 O2 Sat by Pulse Oximetry (%) NO CHEST PAIN,NO SOBB,NO DIZZINESS Laboratory Last Values WBC 6.6 K/mm3 (4.0-10.0) 03/05/17 07:45 RBC 4.53 M/mm3 (4.00-5.60) 03/05/17 07:45 Hgb 12.5 GM/dL (11.7-16.9) 03/05/17 07:45 Hct 40.5 % (35.4-49) 03/05/17 07:45 MCV 89.5 fl (80-96) 03/05/17 07:45 MCH 27.7 pg (25.7-33.7) 03/05/17 07:45 MCHC 31.0 g/dl (32.0-35.9) L 03/05/17 07:45 RDW 14.8 % (11.9-15.9) 03/05/17 07:45 Plt Count 202 K/MM3 (134-434) 03/05/17 07:45 MPV 9.4 fl (7.5-11.1) 03/05/17 07:45 Sodium 143 mmol/L (136-145) 03/05/17 07:45 Potassium 4.1 mmol/L (3.5-5.1) 03/05/17 07:45 Chloride 111 mmol/L (98-107) H 03/05/17 07:45 Carbon Dioxide 27 mmol/L (21-32) 03/05/17 07:45 Anion Gap 5 (8-16) L 03/05/17 07:45 BUN 13 mg/dL (7-18) D 03/05/17 07:45 Creatinine 1.1 mg/dL (0.7-1.3) 03/05/17 07:45 Creat Clearance w eGFR > 60 (>60) 03/05/17 07:45 Random Glucose 98 mg/dL (74-106) 03/05/17 07:45 Calcium 8.6 mg/dL (8.5-10.1) 03/05/17 07:45 Total Bilirubin 0.5 mg/dL (0.2-1.0) 03/05/17 07:45 AST 10 U/L (15-37) L D 03/05/17 07:45 ALT 16 U/L (12-78) D 03/05/17 07:45 Alkaline Phosphatase 62 U/L (45-117) 03/05/17 07:45 Total Protein 6.3 g/dl (6.4-8.2) L 03/05/17 07:45 Albumin 3.5 g/dl (3.4-5.0) 03/05/17 07:45 Urine Color Yellow 03/04/17 15:54 Urine Appearance Slcloudy 03/04/17 15:54 Urine pH 5.0 (5.0-8.0) 03/04/17 15:54 Ur Specific [place] 1.025 (1.001-1.035) 03/04/17 15:54 Urine Protein Negative (NEGATIVE) 03/04/17 15:54 Urine Glucose (UA) Negative (NEGATIVE) 03/04/17 15:54 Urine Ketones Negative (NEGATIVE) 03/04/17 15:54 Urine Blood Negative (NEGATIVE) 03/04/17 15:54 Urine Nitrite Negative (NEGATIVE) 03/04/17 15:54 Urine Bilirubin Negative (NEGATIVE) 03/04/17 15:54 Urine Urobilinogen 2.0 mg/dL (0.2-1.0) 03/04/17 15:54 Ur Leukocyte Esterase Negative (NEGATIVE) 03/04/17 15:54 RPR Titer Nonreactive (NONREACTIVE) 03/05/17 07:45 HIV 1&2 Antibody Screen Negative 03/05/17 07:45 HIV P24 Antigen Negative 03/05/17 07:45 Assessment: 03/06/17 12:02 WITHDRAWAL SYMPTOM Plan: CONTINUE DETOX,LACHYDRIN FOR DRY SKIN
[2017-03-06] MEDS: AMMONIUM LACTATE 12% LOTION 225 GM BOTTLE TP SCH ×3 (14:04→22:07)
[2017-03-06] MEDS: chlordiazePOXIDE 5 MG CAPSULE PO SCH ×2 (17:36→22:06)
[2017-03-06] MEDS: THIAMINE HCL 100 MG TABLET (FP) PO SCH (22:06)
[2017-03-07] MEDS: chlordiazePOXIDE 5 MG CAPSULE PO SCH ×2 (05:30→10:11)
--- NOTE | 2017-03-07 10:01 | PN ---
BHS Progress Note (SOAP) Subjective: little sweats Objective: 03/07/17 10:00 Vital Signs Temperature 97.5 F L 03/07/17 05:54 Pulse Rate 63 03/07/17 05:54 Respiratory Rate 16 03/07/17 05:54 Blood Pressure 143/75 03/07/17 05:54 O2 Sat by Pulse Oximetry (%) aaox3 ambulating no acute distress Assessment: 03/07/17 10:01 mild withdrawal sx Plan: continue detox d/c in am
[2017-03-07] MEDS: NICOTINE 21 MG/24 HOURS TOPICAL PATCH TD SCH (10:10)
[2017-03-07] MEDS: PRENATAL VITAMINS W/ FOLIC ACID TABLET (FP) PO SCH (10:10)
[2017-03-07] MEDS: AMMONIUM LACTATE 12% LOTION 225 GM BOTTLE TP SCH ×2 (10:10→23:10)
[2017-03-07] MEDS: TOLNAFTATE 1% CREAM 15 GM TUBE TP SCH ×2 (10:11→23:11)
[2017-03-07] MEDS: chlordiazePOXIDE HCL 10 MG CAPSULE PO SCH ×2 (16:42→23:10)
[2017-03-07] MEDS: THIAMINE HCL 100 MG TABLET (FP) PO SCH (23:11)
[2017-03-08] MEDS: chlordiazePOXIDE HCL 10 MG CAPSULE PO SCH (05:50)
[2017-03-08 06:52] VITALS: BP 126/82; PULSE 68; TEMP 97.7
--- NOTE | 2017-03-08 08:46 | DS ---
[facility] Detox Discharge Summary Admission Date: 03/04/17 Discharge Date: 03/08/17 - History Present History: Alcohol Dependence, Cocaine Dependence, Sedative Dependence - Physical Exam Results Vital Signs: Vital Signs Temperature 97.7 F 03/08/17 06:52 Pulse Rate 68 03/08/17 06:52 Respiratory Rate 16 03/08/17 06:52 Blood Pressure 126/82 03/08/17 06:52 O2 Sat by Pulse Oximetry (%) - Treatment Hospital Course: Detox Protocol Followed, Detoxed Safely, Responded well, Discharged Condition Good, Rehab Referral Accepted - Medication Discharge Medications: Ambulatory Orders NK [No Known Home Medication] 01/08/15 - Diagnosis (1) Alcohol dependence with uncomplicated withdrawal Status: Chronic (2) Cocaine dependence, uncomplicated Status: Chronic (3) Benzodiazepine abuse, continuous Status: Chronic (4) Opioid dependence Status: Chronic Qualifiers: Substance use status: uncomplicated Qualified Code(s): F11.20 - Opioid dependence, uncomplicated (5) Weight loss Status: Acute (6) Cocaine dependence Status: Chronic (7) Nicotine dependence Status: Chronic Qualifiers: Nicotine product type: cigarettes Substance use status: uncomplicated Qualified Code(s): F17.210 - Nicotine dependence, cigarettes, uncomplicated (8) Sedative, hypnotic or anxiolytic dependence, uncomplicated Status: Chronic - AMA Did Patient Leave Against Medical Advice: No
== END 2017-03-08 06:26 | disposition home or self-care (01) | DRG 773 ==
LOC: YASAS 13:09 → Y6N 15:03
PROVIDERS: ADMIT Internal Medicine; ATTEND Internal Medicine
PROC: HZ2ZZZZ Detoxification Services for Substance Abuse Treatment (ICD-10-PCS; principal; 2017-03-04)
DX: F10.230 Alcohol dependence with withdrawal, uncomplicated (principal); F11.20 Opioid dependence, uncomplicated; F13.20 Sedative, hypnotic or anxiolytic dependence, uncomplicated; F14.20 Cocaine dependence, uncomplicated; F17.210 Nicotine dependence, cigarettes, uncomplicated; B49 Unspecified mycosis; L84 Corns and callosities; Z87.898 Personal history of other specified conditions
CPT/HCPCS: 36415; 80053; 81003; 85027; 86593; 87389; 93005; 93010

== ENCOUNTER 2017-06-03 12:23 | Inpatient (IN) | payer OTHER ==
[2017-06-03 12:52] VITALS: BMI 27.3
--- NOTE | 2017-06-03 14:05 | HP ---
CIWA Score - CIWA Score Nausea/Vomitin-Mild Nausea/No Vomiting Muscle Tremors: 4-Moderate,w/Arms Extend Anxiety: 4-Mod. Anxious/Guarded Agitation: 1-Slight > Activity Paroxysmal Sweats: 1-Minimal Palms Moist Orientation: 0-Oriented Tacttile Disturbances: 0-None Auditory Disturbances: 0-None Visual Disturbances: 1-Very Mild Sensitivity Headache: 2-Mild CIWA-Ar Total Score: 14 Admission ROS BHS - HPI Chief Complaint: I want to stop using, I can't do it myself, I'm messing up - I got pulled over - now I have a DUI Allergies/Adverse Reactions: Allergies Allergy/AdvReac Type Severity Reaction Status Date / Time No Known Drug Allergies Allergy Verified 04/25/17 12:38 History of Present Illness: 57 yo gentleman here for detox from alcohol, alprazolam. No seizures, does have black outs and recent DUI. Last here 04/28/17 - and did not f/u with rehab - states wants terminal worker now. Exam Limitations: Clinical Condition - Ebola screening Have you traveled outside of the country in the last 21 days: No (N) Have you had contact with anyone from an Ebola affected area: No Have you been sick,other than usual withdrawal symptoms: No Do you have a fever: No - Review of Systems Constitutional: Loss of Appetite, Malaise, Changes in sleep, Weakness EENT: reports: No Symptoms Reported Respiratory: reports: No Symptoms reported Cardiac: reports: No Symptoms Reported GI: reports: Poor Appetite, Poor Fluid Intake, Indigestion, Abdominal cramping : reports: Frequency Musculoskeletal: reports: No Symptoms Reported Integumentary: reports: Dryness Neuro: reports: Headache, Tremors Endocrine: reports: No Symptoms Reported Hematology: reports: No Symptoms Reported Psychiatric: reports: Judgement Intact, Mood/Affect Appropiate, Orientated x3, Anxious Other Systems: Reviewed and Negative Patient History - Patient Medical History Hx Anemia: No Hx Asthma: No Hx Chronic Obstructive Pulmonary Disease (COPD): No Hx Cancer: No Hx Cardiac Disorders: No Hx Congestive Heart Failure: No Hx Hypertension: No Hx Hypercholesterolemia: No Hx Pacemaker: No HX Cerebrovascular Accident: No Hx Seizures: No Hx Dementia: No Hx Diabetes: No Hx Gastrointestinal Disorders: No Hx Liver Disease: No Hx Genitourinary Disorders: No Hx Sexually Transmitted Disorders: No Hx Renal Disease (ESRD): No Hx Thyroid Disease: No Hx Human Immunodeficiency Virus (HIV): No (Last Tested: 02/2017: NEGATIVE.) Hx Hepatitis C: No (Last Tested: 02/2017: NEGATIVE.) Hx Depression: No Hx Suicide Attempt: No (PATIENT DENIES CURRENT SI / HI.) Hx Bipolar Disorder: No Hx Schizophrenia: No - Patient Surgical History Past Surgical History: No Hx Neurologic Surgery: No Hx Cataract Extraction: No Hx Cardiac Surgery: No Hx Lung Surgery: No Hx Breast Surgery: No Hx Breast Biopsy: No Hx Abdominal Surgery: No Hx Appendectomy: No Hx Cholecystectomy: No Hx Genitourinary Surgery: No Hx Section: No Hx Orthopedic Surgery: No Anesthesia Reaction: No - PPD History Previous Implant?: Yes Documented Results: Negative w/proof Implanted On Prior [facility] Admission?: Yes Date: 10/19/16 Results: 0 mm PPD to be Administered?: No - Reproductive History Patient is a Female of Child Bearing Age (11 -55 yrs old): No (male) - Smoking Cessation Smoking history: Current every day smoker Have you smoked in the past 12 months: Yes Aproximately how many cigarettes per day: 10 Cigars Per Day: 0 Hx Chewing Tobacco Use: No Initiated information on smoking cessation: Yes 'Breaking Loose' booklet given: 06/03/17 (give on floor) - Substance & Tx. History Hx Alcohol Use: Yes Hx Substance Use: Yes Substance Use Type: Alcohol, Cocaine, Tranquilizers Hx Substance Use Treatment: Yes (detox, rehab) - Substances Abused alcohol Route: Oral Frequency: Daily Amount used: 2 pints liquor Age of first use: 16 Date of Last Use: 06/02/17 xanax Route: Oral Frequency: 3-6 times per week Amount used: 4mg Age of first use: 41 Date of Last Use: 06/02/17 cocaine Route: Smoking Frequency: Daily Amount used: $40 Age of first use: 22 Date of Last Use: 06/02/17 Family Disease History - Family Disease History Family Disease History: Heart Disease: Father (, [place]), Other: Grandparent (grandfather - etoh), Father, Mother ( 'natural causes'), Sister (one -healthy), Son (one - healthy) Admission Physical Exam BHS - Vital Signs Vital Signs: Vital Signs - 24 hr 06/03/17 12:51 Temperature 97.8 F Pulse Rate 76 Respiratory 18 Rate Blood Pressure 131/75 - Physical General Appearance: Yes: Nourished, Appropriately Dressed, Moderate Distress, Anxious HEENTM: Yes: Hearing grossly Normal, Normocephalic, Normal Voice, Pharynx Normal , Other (eye bloodshot (no itching, no exudate)) Respiratory: Yes: Normal Breath Sounds, No Respiratory Distress Neck: Yes: No masses,lesions,Nodules, Supple Breast: Yes: Breast Exam Deferred Cardiology: Yes: Regular Rhythm, Regular Rate Abdominal: Yes: Non Tender, Flat Genitourinary: Yes: Frequency Back: Yes: Normal Inspection Musculoskeletal: Yes: full range of Motion, Gait Steady Extremities: Yes: Normal Inspection, Non-Tender Neurological: Yes: Fully Oriented, Alert, Normal Mood/Affect, Normal Response Integumentary: Yes: Normal Color, Dry, Warm Lymphatic: Yes: Within Normal Limits - Diagnostic (1) Sedative, hypnotic or anxiolytic dependence, uncomplicated Current Visit: Yes Status: Chronic (2) Alcohol dependence with uncomplicated withdrawal Current Visit: Yes Status: Acute (3) Cocaine dependence, uncomplicated Current Visit: Yes Status: Chronic (4) Nicotine dependence Current Visit: Yes Status: Chronic Qualifiers: Nicotine product type: cigarettes Substance use status: in withdrawal Qualified Code(s): F17.213 - Nicotine dependence, cigarettes, with withdrawal (5) Weight loss Current Visit: Yes Status: Acute (6) Dehydration Current Visit: Yes Status: Acute Cleared for Admission [facility] - Detox or Rehab [facility] Level of Care: Medically Managed Detox Regimen/Protocol: Librium [facility] Breath Alcohol Content Breath Alcohol Content: 0 Urine Drug Screen - Results Drug Screen Negative: No Urine Drug Screen Results: ELYSIA-Cocaine
[2017-06-03] MEDS ORDERED: guaiFENesin/D-METHORPHAN HB 10 ML UNIT-DOSE CUPS PO PRN (14:07)
[2017-06-03] MEDS ORDERED: MENTHOL/PHENOL 1 EACH UD MM PRN (14:07)
[2017-06-03] MEDS ORDERED: LOPERAMIDE HCL 2 MG CAPSULE PO PRN (14:07)
[2017-06-03] MEDS ORDERED: MAG HYDROX/AL HYDROX/SIMETH 30 ML UNIT-DOSE CUP PO PRN (14:07)
[2017-06-03] MEDS ORDERED: MAGNESIUM CITRATE 300 ML BOTTLE PO PRN (14:07)
[2017-06-03] MEDS ORDERED: MAGNESIUM HYDROX 2400MG/30ML ORAL SUSPENSION 30 ML CUP PO PRN (14:07)
[2017-06-03] MEDS ORDERED: P-EPHED 60MG/TRIPROLIDI 2.5MG TABLET PO PRN (14:07)
[2017-06-03] MEDS ORDERED: chlordiazePOXIDE HCL 25 MG CAPSULE PO PRN (14:07)
[2017-06-03] MEDS ORDERED: ACETAMINOPHEN 325 MG TABLET (FP) PO PRN (14:07)
[2017-06-03] MEDS ORDERED: hydrOXYzine PAMOATE 25 MG CAPSULE (FP) PO PRN (14:07)
[2017-06-03] MEDS ORDERED: chlordiazePOXIDE HCL 25 MG CAPSULE PO ONE (16:45)
[2017-06-03] MEDS: NICOTINE 21 MG/24 HOURS TOPICAL PATCH TD SCH (17:33)
[2017-06-03] MEDS: chlordiazePOXIDE HCL 25 MG CAPSULE PO SCH ×2 (17:35→22:36)
[2017-06-03] MEDS ORDERED: MELATONIN 5 MG TABLETS PO PRN (22:00)
[2017-06-03] MEDS: THIAMINE HCL 100 MG TABLET (FP) PO SCH (22:36)
[2017-06-04] MEDS: chlordiazePOXIDE HCL 25 MG CAPSULE PO SCH ×4 (05:59→22:13)
[2017-06-04] MEDS: ASPIRIN 81 MG CHEWABLE TABLETS PO SCH (10:29)
[2017-06-04] MEDS: PRENATAL VITAMINS W/ FOLIC ACID TABLET (FP) PO SCH (10:29)
[2017-06-04] MEDS: NICOTINE 21 MG/24 HOURS TOPICAL PATCH TD SCH (10:29)
[2017-06-04 11:03] LABS: HEMATOCRIT 38.1 % (35.4-49); HEMOGLOBIN 12.4 GM/dL (11.7-16.9); MCH 28.7 pg (25.7-33.7); MCHC 32.5 g/dl (32.0-35.9); MEAN CELL VOLUME 88.2 fl (80-96); MEAN PLT VOLUME 9.5 fl (7.5-11.1); PLATELET COUNT 204 K/MM3 (134-434); RBC 4.32 M/mm3 (4.00-5.60); RDW 13.6 % (11.9-15.9); WHITE BLOOD COUNT 6.3 K/mm3 (4.0-10.0)
[2017-06-04 11:10] LABS: CHLORIDE 109 mmol/L (98-107); POTASSIUM 3.9 mmol/L (3.5-5.1); SODIUM 144 mmol/L (136-145)
[2017-06-04 11:16] LABS: ALK PHOS 67 U/L (45-117); BILIRUBIN,TOTAL 0.3 mg/dL (0.2-1.0); SGOT/AST 14 U/L (15-37); TOT PROT 6.3 g/dl (6.4-8.2)
[2017-06-04 11:42] LABS: GLUCOSE,RANDOM 110 mg/dL (74-106)
[2017-06-04 11:43] LABS: ALBUMIN 3.5 g/dl (3.4-5.0); ANION GAP 5 (8-16); BLOOD UREA NITROGEN 13 mg/dL (7-18); CALCIUM 8.9 mg/dL (8.5-10.1); CO2 30 mmol/L (21-32); CREATININE 1.2 mg/dL (0.7-1.3); SGPT/ALT 17 U/L (12-78)
--- NOTE | 2017-06-04 12:07 | PN ---
S CIWA - CIWA Score Nausea/Vomitin-No Nausea/No Vomiting Muscle Tremors: 4-Moderate,w/Arms Extend Anxiety: 3 Agitation: 3 Paroxysmal Sweats: 3 Orientation: 0-Oriented Tacttile Disturbances: 0-None Auditory Disturbances: 0-None Visual Disturbances: 0-None Headache: 0-None Present CIWA-Ar Total Score: 13 BHS Progress Note (SOAP) Subjective: sweats mild shakes interrupted sleep body aches Objective: 06/04/17 12:06 Vital Signs Temperature 97.4 F L 06/04/17 11:11 Pulse Rate 63 06/04/17 11:11 Respiratory Rate 18 06/04/17 11:11 Blood Pressure 107/65 06/04/17 11:11 O2 Sat by Pulse Oximetry (%) Laboratory Tests 06/04/17 06/04/17 06/04/17 07:40 07:40 07:40 WBC 6.3 D RBC 4.32 Hgb 12.4 Hct 38.1 MCV 88.2 MCH 28.7 MCHC 32.5 RDW 13.6 Plt Count 204 MPV 9.5 Sodium 144 Potassium 3.9 Chloride 109 H Carbon Dioxide 30 Anion Gap 5 L BUN 13 D Creatinine 1.2 Creat Clearance w eGFR > 60 Random Glucose 110 H Calcium 8.9 Total Bilirubin 0.3 D AST 14 L D ALT 17 D Alkaline Phosphatase 67 Total Protein 6.3 L Albumin 3.5 D RPR Titer Nonreactive HIV 1&2 Antibody Screen HIV P24 Antigen 06/04/17 08:00 WBC RBC Hgb Hct MCV MCH MCHC RDW Plt Count MPV Sodium Potassium Chloride Carbon Dioxide Anion Gap BUN Creatinine Creat Clearance w eGFR Random Glucose Calcium Total Bilirubin AST ALT Alkaline Phosphatase Total Protein Albumin RPR Titer HIV 1&2 Antibody Screen Negative HIV P24 Antigen Negative aaox3 ambulating no acute distress Assessment: 06/04/17 12:07 withdrawal sx Plan: continue detox increase fluids
--- NOTE | 2017-06-04 16:22 | EKG ---
Test Reason : Blood Pressure : / mmHG Vent. Rate : 061 BPM Atrial Rate : 061 BPM P-R Int : 148 ms QRS Dur : 084 ms QT Int : 400 ms P-R-T Axes : 060 033 032 degrees QTc Int : 402 ms NORMAL SINUS RHYTHM SEPTAL INFARCT (CITED ON OR BEFORE 29-MAY-2016) ABNORMAL ECG WHEN COMPARED WITH ECG OF 25-APR-2017 16:45, SERIAL CHANGES OF SEPTAL INFARCT PRESENT Confirmed by MD TARAS, VIRGIL ([id number]) on 06/04/2017 4:22:33 PM Referred By: Confirmed By:VIRGIL GRAJEDA MD
[2017-06-04] MEDS: THIAMINE HCL 100 MG TABLET (FP) PO SCH (22:13)
[2017-06-05] MEDS: chlordiazePOXIDE HCL 25 MG CAPSULE PO SCH ×2 (05:39→10:30)
[2017-06-05] MEDS: PRENATAL VITAMINS W/ FOLIC ACID TABLET (FP) PO SCH (10:30)
[2017-06-05] MEDS: ASPIRIN 81 MG CHEWABLE TABLETS PO SCH (10:30)
[2017-06-05] MEDS: NICOTINE 21 MG/24 HOURS TOPICAL PATCH TD SCH (10:30)
[2017-06-05] MEDS: AMMONIUM LACTATE 12% LOTION 225 GM BOTTLE TP SCH ×2 (14:27→22:25)
[2017-06-05 14:33] LABS: URINE APPEARANCE CLEAR; URINE BILIRUBIN NEGATIVE (<2.0 mg/dL); URINE BLOOD NEGATIVE (NEGATIVE); URINE COLOR LTYELLOW; URINE GLUCOSE (UA) NEGATIVE (NEGATIVE); URINE KETONE NEGATIVE (NEGATIVE); URINE LEUK ESTERASE NEGATIVE (NEGATIVE); URINE NITRITE NEGATIVE (NEGATIVE); URINE PROTEIN NEGATIVE (NEGATIVE); URINE UROBILINOGEN NEGATIVE mg/dL (0.2-1.0)
--- NOTE | 2017-06-05 16:49 | PN ---
[facility] CIWA - CIWA Score Nausea/Vomitin-No Nausea/No Vomiting Muscle Tremors: 2 Anxiety: 4-Mod. Anxious/Guarded Agitation: 3 Paroxysmal Sweats: 3 Orientation: 0-Oriented Tacttile Disturbances: 2-Mild Itch/Numbness/Burn Auditory Disturbances: 2-Mild Harshness/Frighten Visual Disturbances: 0-None Headache: 0-None Present CIWA-Ar Total Score: 16 BHS Progress Note (SOAP) Subjective: Sweating, Anxious, Tremors, Interrupted Sleep. Objective: PATIENT A & O X 3, OBSERVED AMBULATING ON UNIT. NO ACUTE DISTRESS. 06/05/17 16:47 Vital Signs Temperature 96.5 F L 06/05/17 13:29 Pulse Rate 77 06/05/17 13:29 Respiratory Rate 18 06/05/17 13:29 Blood Pressure 115/65 06/05/17 13:29 O2 Sat by Pulse Oximetry (%) Laboratory Tests 06/04/17 06/04/17 06/04/17 07:40 07:40 07:40 WBC 6.3 D RBC 4.32 Hgb 12.4 Hct 38.1 MCV 88.2 MCH 28.7 MCHC 32.5 RDW 13.6 Plt Count 204 MPV 9.5 Sodium 144 Potassium 3.9 Chloride 109 H Carbon Dioxide 30 Anion Gap 5 L BUN 13 D Creatinine 1.2 Creat Clearance w eGFR > 60 Random Glucose 110 H Calcium 8.9 Total Bilirubin 0.3 D AST 14 L D ALT 17 D Alkaline Phosphatase 67 Total Protein 6.3 L Albumin 3.5 D Urine Color Urine Appearance Urine pH Ur Specific [place] Urine Protein Urine Glucose (UA) Urine Ketones Urine Blood Urine Nitrite Urine Bilirubin Urine Urobilinogen Ur Leukocyte Esterase RPR Titer Nonreactive HIV 1&2 Antibody Screen HIV P24 Antigen 06/04/17 06/05/17 08:00 10:00 WBC RBC Hgb Hct MCV MCH MCHC RDW Plt Count MPV Sodium Potassium Chloride Carbon Dioxide Anion Gap BUN Creatinine Creat Clearance w eGFR Random Glucose Calcium Total Bilirubin AST ALT Alkaline Phosphatase Total Protein Albumin Urine Color Ltyellow Urine Appearance Clear Urine pH 5.0 Ur Specific [place] 1.019 Urine Protein Negative Urine Glucose (UA) Negative Urine Ketones Negative Urine Blood Negative Urine Nitrite Negative Urine Bilirubin Negative Urine Urobilinogen Negative Ur Leukocyte Esterase Negative RPR Titer HIV 1&2 Antibody Screen Negative HIV P24 Antigen Negative labs noted. Assessment: 06/05/17 16:48 WITHDRAWAL SYMPTOMS. Plan: CONTINUE DETOX. INCREASE DAILY PO FLUID INTAKE.
[2017-06-05] MEDS: chlordiazePOXIDE 5 MG CAPSULE PO SCH ×2 (17:51→22:25)
[2017-06-05] MEDS: THIAMINE HCL 100 MG TABLET (FP) PO SCH (22:25)
[2017-06-06] MEDS: chlordiazePOXIDE 5 MG CAPSULE PO SCH (07:23)
[2017-06-06 09:21] VITALS: BP 96/57; PULSE 71; TEMP 98.7
--- NOTE | 2017-06-06 11:44 | DS ---
[facility] Detox Discharge Summary Admission Date: 06/03/17 Discharge Date: 06/06/17 - History Present History: Alcohol Dependence, Cocaine Dependence, Sedative Dependence ( TOX NEGATIVE) Additional Comments: PT SIGNED OUT AMA. ALERT O X 3. NAD. Pertinent Past History: PLEASE SEE DX BELOW - Physical Exam Results Vital Signs: Vital Signs Temperature 98.7 F 06/06/17 09:19 Pulse Rate 71 06/06/17 09:19 Respiratory Rate 18 06/06/17 09:19 Blood Pressure 96/57 06/06/17 09:19 O2 Sat by Pulse Oximetry (%) Pertinent Admission Physical Exam Findings: WITHDRAWAL SX Vital Signs Temperature 98.7 F 06/06/17 09:19 Pulse Rate 71 06/06/17 09:19 Respiratory Rate 18 06/06/17 09:19 Blood Pressure 96/57 06/06/17 09:19 O2 Sat by Pulse Oximetry (%) Laboratory Last Values WBC 6.3 K/mm3 (4.0-10.0) D 06/04/17 07:40 RBC 4.32 M/mm3 (4.00-5.60) 06/04/17 07:40 Hgb 12.4 GM/dL (11.7-16.9) 06/04/17 07:40 Hct 38.1 % (35.4-49) 06/04/17 07:40 MCV 88.2 fl (80-96) 06/04/17 07:40 MCH 28.7 pg (25.7-33.7) 06/04/17 07:40 MCHC 32.5 g/dl (32.0-35.9) 06/04/17 07:40 RDW 13.6 % (11.9-15.9) 06/04/17 07:40 Plt Count 204 K/MM3 (134-434) 06/04/17 07:40 MPV 9.5 fl (7.5-11.1) 06/04/17 07:40 Sodium 144 mmol/L (136-145) 06/04/17 07:40 Potassium 3.9 mmol/L (3.5-5.1) 06/04/17 07:40 Chloride 109 mmol/L (98-107) H 06/04/17 07:40 Carbon Dioxide 30 mmol/L (21-32) 06/04/17 07:40 Anion Gap 5 (8-16) L 06/04/17 07:40 BUN 13 mg/dL (7-18) D 06/04/17 07:40 Creatinine 1.2 mg/dL (0.7-1.3) 06/04/17 07:40 Creat Clearance w eGFR > 60 (>60) 06/04/17 07:40 Random Glucose 110 mg/dL (74-106) H 06/04/17 07:40 Calcium 8.9 mg/dL (8.5-10.1) 06/04/17 07:40 Total Bilirubin 0.3 mg/dL (0.2-1.0) D 06/04/17 07:40 AST 14 U/L (15-37) L D 06/04/17 07:40 ALT 17 U/L (12-78) D 06/04/17 07:40 Alkaline Phosphatase 67 U/L (45-117) 06/04/17 07:40 Total Protein 6.3 g/dl (6.4-8.2) L 06/04/17 07:40 Albumin 3.5 g/dl (3.4-5.0) D 06/04/17 07:40 Urine Color Ltyellow 06/05/17 10:00 Urine Appearance Clear 06/05/17 10:00 Urine pH 5.0 (5.0-8.0) 06/05/17 10:00 Ur Specific [place] 1.019 (1.001-1.035) 06/05/17 10:00 Urine Protein Negative (NEGATIVE) 06/05/17 10:00 Urine Glucose (UA) Negative (NEGATIVE) 06/05/17 10:00 Urine Ketones Negative (NEGATIVE) 06/05/17 10:00 Urine Blood Negative (NEGATIVE) 06/05/17 10:00 Urine Nitrite Negative (NEGATIVE) 06/05/17 10:00 Urine Bilirubin Negative (<2.0 mg/dL) 06/05/17 10:00 Urine Urobilinogen Negative mg/dL (0.2-1.0) 06/05/17 10:00 Ur Leukocyte Esterase Negative (NEGATIVE) 06/05/17 10:00 RPR Titer Nonreactive (NONREACTIVE) 06/04/17 07:40 HIV 1&2 Antibody Screen Negative 06/04/17 08:00 HIV P24 Antigen Negative 06/04/17 08:00 - Treatment Hospital Course: Discharged Condition Good - Medication Discharge Medications: Ambulatory Orders Aspirin [ASA -] 81 mg PO DAILY 04/25/17 - Diagnosis (1) Alcohol dependence with uncomplicated withdrawal Status: Acute (2) Nicotine dependence Status: Chronic Qualifiers: Nicotine product type: cigarettes Substance use status: in withdrawal Qualified Code(s): F17.213 - Nicotine dependence, cigarettes, with withdrawal (3) Cocaine dependence, uncomplicated Status: Acute (4) Dehydration Status: Acute (5) Weight loss Status: Acute - AMA Did Patient Leave Against Medical Advice: Yes (AMA)
[2017-06-06] MEDS ORDERED: chlordiazePOXIDE HCL 10 MG CAPSULE PO SCH (17:00)
== END 2017-06-06 10:46 | disposition left against medical advice (07) | DRG 770 ==
LOC: YASAS 12:23 → Y3N 15:55
PROVIDERS: ADMIT Internal Medicine; ATTEND Internal Medicine
PROC: HZ2ZZZZ Detoxification Services for Substance Abuse Treatment (ICD-10-PCS; principal; 2017-06-03)
DX: F13.230 Sedative, hypnotic or anxiolytic dependence with withdrawal, uncomplicated (principal); F10.230 Alcohol dependence with withdrawal, uncomplicated; F14.20 Cocaine dependence, uncomplicated; F17.213 Nicotine dependence, cigarettes, with withdrawal; E86.0 Dehydration; R63.4 Abnormal weight loss; Z68.27 Body mass index [BMI] 27.0-27.9, adult
CPT/HCPCS: 36415; 80053; 81003; 85027; 86593; 87389; 93005; 93010

== ENCOUNTER 2018-03-16 12:21 | Inpatient (IN) | payer OTHER ==
[2018-03-16 12:51] VITALS: BMI 25.9
--- NOTE | 2018-03-16 15:11 | HP ---
CIWA Score Nausea/Vomitin-No Nausea/No Vomiting Muscle Tremors: 4-Moderate,w/Arms Extend Anxiety: 4-Mod. Anxious/Guarded Agitation: 4-Moderately Restless Paroxysmal Sweats: 3 Orientation: 0-Oriented Tacttile Disturbances: 0-None Auditory Disturbances: 0-None Visual Disturbances: 0-None Headache: 0-None Present CIWA-Ar Total Score: 15 - Admission Criteria [facility]ASAS Guidelines: Admission for Medically Managed Detox: Requires at least one of the followin. CIWA greater than 12 2. Seizures within the past 24 hours 3. Delirium tremens within the past 24 hours 4. Hallucinations within the past 24 hours 5. Acute intervention needed for co occurring medical disorder 6. Acute intervention needed for co occurring psychiatric disorder 7. Severe withdrawal that cannot be handled at a lower level of care (continued vomiting, continued diarrhea, abnormal vital signs) requiring intravenous medication and/or fluids 8. Admission ROS S - HPI Chief Complaint: I am here for detox and need help to get and stay clean. Allergies/Adverse Reactions: Allergies Allergy/AdvReac Type Severity Reaction Status Date / Time No Known Drug Allergies Allergy Verified 03/16/18 15:04 History of Present Illness: pt is a 57yr old male with a history of alcohol dependence seeking detox for treatment. Exam Limitations: No Limitations - Ebola screening Have you traveled outside of the country in the last 21 days: No Have you had contact with anyone from an Ebola affected area: No Have you been sick,other than usual withdrawal symptoms: No Do you have a fever: No - Review of Systems Constitutional: Chills, Diaphoresis, Changes in sleep, Unintentional Wgt. Loss EENT: reports: Tearing Respiratory: reports: No Symptoms reported Cardiac: reports: No Symptoms Reported GI: reports: Diarrhea, Poor Appetite, Poor Fluid Intake : reports: No Symptoms Reported Musculoskeletal: reports: No Symptoms Reported Integumentary: reports: Flushing, Sweating Neuro: reports: Tingling, Tremors Endocrine: reports: Excessive Sweating, Flushing, Intolerance to Cold, Intolerance to Heat Hematology: reports: No Symptoms Reported Psychiatric: reports: Judgement Intact, Mood/Affect Appropiate, Orientated x3, Agitated, Anxious Other Systems: Reviewed and Negative Patient History - Patient Medical History Hx Anemia: No Hx Asthma: No Hx Chronic Obstructive Pulmonary Disease (COPD): No Hx Cancer: No Hx Cardiac Disorders: No Hx Congestive Heart Failure: No Hx Hypertension: No Hx Hypercholesterolemia: No Hx Pacemaker: No HX Cerebrovascular Accident: No Hx Seizures: No Hx Dementia: No Hx Diabetes: No Hx Gastrointestinal Disorders: No Hx Liver Disease: No Hx Genitourinary Disorders: No Hx Sexually Transmitted Disorders: No Hx Renal Disease (ESRD): No Hx Thyroid Disease: No Hx Human Immunodeficiency Virus (HIV): No (pt denies will like a new test) Hx Hepatitis C: No (denies) Hx Depression: No Hx Suicide Attempt: No (denies) Hx Bipolar Disorder: No Hx Schizophrenia: No - Patient Surgical History Past Surgical History: No Hx Neurologic Surgery: No Hx Cataract Extraction: No Hx Cardiac Surgery: No Hx Lung Surgery: No Hx Breast Surgery: No Hx Breast Biopsy: No Hx Abdominal Surgery: No Hx Appendectomy: No Hx Cholecystectomy: No Hx Genitourinary Surgery: No Hx Section: No Hx Orthopedic Surgery: No Anesthesia Reaction: No - PPD History Previous Implant?: Yes Documented Results: Negative w/o proof PPD to be Administered?: Yes - Reproductive History Patient is a Female of Child Bearing Age (11 -55 yrs old): No - Smoking Cessation Smoking history: Current every day smoker Have you smoked in the past 12 months: Yes Aproximately how many cigarettes per day: 10 Cigars Per Day: 0 Hx Chewing Tobacco Use: No Initiated information on smoking cessation: Yes 'Breaking Loose' booklet given: 03/16/18 - Substance & Tx. History Hx Alcohol Use: Yes Hx Substance Use: Yes Substance Use Type: Alcohol, Cocaine Hx Substance Use Treatment: Yes (last detox 2018 at [facility]) - Substances Abused Alcohol Route: Oral Frequency: Daily Amount used: 3 pints vodka Age of first use: 16 Date of Last Use: 03/15/18 Cocaine Route: Smoking Frequency: Daily Amount used: $30 Age of first use: 21 Date of Last Use: 03/15/18 Family Disease History - Family Disease History Family Disease History: Heart Disease: Father (, [place]), Other: Grandparent (grandfather - etoh), Father, Mother ( 'natural causes'), Sister (one -healthy), Son (one - healthy) Admission Physical Exam BHS - Vital Signs Vital Signs: Vital Signs - 24 hr 03/16/18 12:49 Temperature 97.1 F L Pulse Rate 72 Respiratory 18 Rate Blood Pressure 117/72 - Physical General Appearance: Yes: Appropriately Dressed, Irritable, Sweating, Anxious HEENTM: Yes: Normal Voice Respiratory: Yes: Lungs Clear, Normal Breath Sounds, No Respiratory Distress Neck: Yes: No masses,lesions,Nodules Breast: Yes: Within Normal Limits Cardiology: Yes: Regular Rhythm, Regular Rate, S1, S2 Abdominal: Yes: Normal Bowel Sounds, Non Tender, Soft Genitourinary: Yes: Within Normal Limits Back: Yes: Normal Inspection Musculoskeletal: Yes: full range of Motion Extremities: Yes: Normal Capillary Refill, Normal Inspection, Non-Tender, Tremors Neurological: Yes: Fully Oriented, Alert, Normal Response Integumentary: Yes: Normal Color, Diaphoresis Lymphatic: Yes: Within Normal Limits - Diagnostic (1) Alcohol dependence with uncomplicated withdrawal Current Visit: Yes Status: Chronic (2) Cocaine dependence, uncomplicated Current Visit: Yes Status: Chronic (3) Nicotine dependence Current Visit: No Status: Chronic Qualifiers: Nicotine product type: cigarettes Substance use status: uncomplicated Qualified Code(s): F17.210 - Nicotine dependence, cigarettes, uncomplicated (4) Weight loss Current Visit: Yes Status: Acute Cleared for Admission [facility] - Detox or Rehab [facility] Level of Care: Medically Managed Detox Regimen/Protocol: Librium S Breath Alcohol Content Breath Alcohol Content: 0 Urine Drug Screen - Results Drug Screen Negative: No Urine Drug Screen Results: ELYSIA-Cocaine
[2018-03-16] MEDS ORDERED: MAGNESIUM CITRATE 300 ML BOTTLE PO PRN (15:21)
[2018-03-16] MEDS ORDERED: IBUPROFEN 400 MG TABLET (FP) PO PRN (15:21)
[2018-03-16] MEDS ORDERED: LOPERAMIDE HCL 2 MG CAPSULE PO PRN (15:21)
[2018-03-16] MEDS ORDERED: P-EPHED 60MG/TRIPROLIDI 2.5MG TABLET PO PRN (15:21)
[2018-03-16] MEDS ORDERED: MENTHOL/PHENOL 1 EACH UD MM PRN (15:21)
[2018-03-16] MEDS ORDERED: MAG HYDROX/AL HYDROX/SIMETH 30 ML UNIT-DOSE CUP PO PRN (15:21)
[2018-03-16] MEDS ORDERED: ACETAMINOPHEN 325 MG TABLET (FP) PO PRN (15:21)
[2018-03-16] MEDS ORDERED: MAGNESIUM HYDROX 2400MG/30ML ORAL SUSPENSION 30 ML CUP PO PRN (15:21)
[2018-03-16] MEDS ORDERED: chlordiazePOXIDE HCL 25 MG CAPSULE PO PRN (15:21)
[2018-03-16] MEDS ORDERED: hydrOXYzine PAMOATE 50 MG CAPSULE (FP) PO PRN (15:21)
[2018-03-16] MEDS ORDERED: guaiFENesin/D-METHORPHAN HB 10 ML UNIT-DOSE CUPS PO PRN (15:21)
[2018-03-16] MEDS ORDERED: NICOTINE POLACRILEX 4 MG GUM BC PRN (15:21)
[2018-03-16] MEDS ORDERED: chlordiazePOXIDE HCL 25 MG CAPSULE PO ONE (16:15)
[2018-03-16] MEDS: chlordiazePOXIDE HCL 25 MG CAPSULE PO SCH ×2 (17:27→22:55)
[2018-03-16] MEDS ORDERED: MELATONIN 5 MG TABLETS PO PRN (22:00)
[2018-03-16] MEDS: THIAMINE HCL 100 MG TABLET (FP) PO SCH (22:54)
[2018-03-17] MEDS: chlordiazePOXIDE HCL 25 MG CAPSULE PO SCH ×4 (06:01→23:00)
[2018-03-17] MEDS: ASPIRIN 81 MG CHEWABLE TABLETS PO SCH (10:24)
[2018-03-17] MEDS: PRENATAL VITAMINS W/ FOLIC ACID TABLET (FP) PO SCH (10:24)
[2018-03-17 11:01] LABS: HEMATOCRIT 40.2 % (35.4-49); HEMOGLOBIN 12.2 GM/dL (11.7-16.9); MCH 27.4 pg (25.7-33.7); MCHC 30.4 g/dl (32.0-35.9); MEAN CELL VOLUME 90.1 fl (80-96); MEAN PLT VOLUME 9.6 fl (7.5-11.1); PLATELET COUNT 169 K/MM3 (134-434); RBC 4.46 M/mm3 (4.00-5.60); RDW 14.9 % (11.9-15.9)
[2018-03-17 11:07] LABS: ALBUMIN 3.4 g/dl (3.4-5.0); ALK PHOS 60 U/L (45-117); ANION GAP 3 MMOL/L (8-16); BILIRUBIN,TOTAL 0.4 mg/dL (0.2-1); BLOOD UREA NITROGEN 17 mg/dL (7-18); CHLORIDE 109 mmol/L (98-107); CO2 30 mmol/L (21-32); GLUCOSE,RANDOM 124 mg/dL (74-106); POTASSIUM 3.8 mmol/L (3.5-5.1); SGOT/AST 19 U/L (15-37); SGPT/ALT 22 U/L (13-61); SODIUM 142 mmol/L (136-145); TOT PROT 6.2 g/dl (6.4-8.2)
[2018-03-17] MEDS ORDERED: FLU VACCINE QUAD 60 MCG/0.5 ML (MDV 18-19) IM ONE (12:00)
--- NOTE | 2018-03-17 16:19 | PN ---
S CIWA - CIWA Score Nausea/Vomitin-Mild Nausea/No Vomiting Muscle Tremors: 4-Moderate,w/Arms Extend Anxiety: 3 Agitation: 2 Paroxysmal Sweats: 3 Orientation: 0-Oriented Tacttile Disturbances: 0-None Auditory Disturbances: 0-None Visual Disturbances: 0-None Headache: 0-None Present CIWA-Ar Total Score: 13 S Progress Note (SOAP) Subjective: shakes sweats Objective: 03/17/18 16:17 A & Ox 3 Gait steady Not in acute distress Vital Signs Temperature 97.9 F 03/17/18 13:49 Pulse Rate 58 L 03/17/18 13:49 Respiratory Rate 18 03/17/18 13:49 Blood Pressure 107/59 L 03/17/18 13:49 O2 Sat by Pulse Oximetry (%) Laboratory Last Values WBC 6.0 K/mm3 (4.0-10.0) 03/17/18 07:45 RBC 4.46 M/mm3 (4.00-5.60) 03/17/18 07:45 Hgb 12.2 GM/dL (11.7-16.9) 03/17/18 07:45 Hct 40.2 % (35.4-49) 03/17/18 07:45 MCV 90.1 fl (80-96) 03/17/18 07:45 MCH 27.4 pg (25.7-33.7) 03/17/18 07:45 MCHC 30.4 g/dl (32.0-35.9) L 03/17/18 07:45 RDW 14.9 % (11.9-15.9) 03/17/18 07:45 Plt Count 169 K/MM3 (134-434) 03/17/18 07:45 MPV 9.6 fl (7.5-11.1) 03/17/18 07:45 Sodium 142 mmol/L (136-145) 03/17/18 07:45 Potassium 3.8 mmol/L (3.5-5.1) 03/17/18 07:45 Chloride 109 mmol/L (98-107) H 03/17/18 07:45 Carbon Dioxide 30 mmol/L (21-32) 03/17/18 07:45 Anion Gap 3 MMOL/L (8-16) L 03/17/18 07:45 BUN 17 mg/dL (7-18) 03/17/18 07:45 Creatinine 1.0 mg/dL (0.55-1.3) 03/17/18 07:45 Creat Clearance w eGFR > 60 (>60) 03/17/18 07:45 Random Glucose 124 mg/dL (74-106) H 03/17/18 07:45 Calcium 9.0 mg/dL (8.5-10.1) 03/17/18 07:45 Total Bilirubin 0.4 mg/dL (0.2-1) 03/17/18 07:45 AST 19 U/L (15-37) 03/17/18 07:45 ALT 22 U/L (13-61) 03/17/18 07:45 Alkaline Phosphatase 60 U/L (45-117) 03/17/18 07:45 Total Protein 6.2 g/dl (6.4-8.2) L 03/17/18 07:45 Albumin 3.4 g/dl (3.4-5.0) 03/17/18 07:45 Assessment: 03/17/18 16:19 withdrawal sx Plan: continue detox per protocol
[2018-03-17] MEDS: THIAMINE HCL 100 MG TABLET (FP) PO SCH (23:00)
[2018-03-18] MEDS: chlordiazePOXIDE HCL 25 MG CAPSULE PO SCH ×2 (05:28→10:15)
[2018-03-18] MEDS: ASPIRIN 81 MG CHEWABLE TABLETS PO SCH (10:15)
[2018-03-18] MEDS: PRENATAL VITAMINS W/ FOLIC ACID TABLET (FP) PO SCH (10:15)
--- NOTE | 2018-03-18 12:25 | PN ---
S CIWA - CIWA Score Nausea/Vomitin-No Nausea/No Vomiting Muscle Tremors: 3 Anxiety: 1-Mildly Anxious Agitation: 2 Paroxysmal Sweats: 1-Minimal Palms Moist Orientation: 0-Oriented Tacttile Disturbances: 0-None Auditory Disturbances: 0-None Visual Disturbances: 0-None Headache: 2-Mild CIWA-Ar Total Score: 9 S Progress Note (SOAP) Subjective: mild tremor less sweat otherwise feeling ok patient wants to leave the detox unit around 6 am upon discharge Objective: 03/18/18 12:24 Vital Signs Temperature 97.9 F 03/18/18 09:34 Pulse Rate 89 03/18/18 09:34 Respiratory Rate 18 03/18/18 09:34 Blood Pressure 128/79 03/18/18 09:34 O2 Sat by Pulse Oximetry (%) Laboratory Last Values WBC 6.0 K/mm3 (4.0-10.0) 03/17/18 07:45 RBC 4.46 M/mm3 (4.00-5.60) 03/17/18 07:45 Hgb 12.2 GM/dL (11.7-16.9) 03/17/18 07:45 Hct 40.2 % (35.4-49) 03/17/18 07:45 MCV 90.1 fl (80-96) 03/17/18 07:45 MCH 27.4 pg (25.7-33.7) 03/17/18 07:45 MCHC 30.4 g/dl (32.0-35.9) L 03/17/18 07:45 RDW 14.9 % (11.9-15.9) 03/17/18 07:45 Plt Count 169 K/MM3 (134-434) 03/17/18 07:45 MPV 9.6 fl (7.5-11.1) 03/17/18 07:45 Sodium 142 mmol/L (136-145) 03/17/18 07:45 Potassium 3.8 mmol/L (3.5-5.1) 03/17/18 07:45 Chloride 109 mmol/L (98-107) H 03/17/18 07:45 Carbon Dioxide 30 mmol/L (21-32) 03/17/18 07:45 Anion Gap 3 MMOL/L (8-16) L 03/17/18 07:45 BUN 17 mg/dL (7-18) 03/17/18 07:45 Creatinine 1.0 mg/dL (0.55-1.3) 03/17/18 07:45 Creat Clearance w eGFR > 60 (>60) 03/17/18 07:45 Random Glucose 124 mg/dL (74-106) H 03/17/18 07:45 Calcium 9.0 mg/dL (8.5-10.1) 03/17/18 07:45 Total Bilirubin 0.4 mg/dL (0.2-1) 03/17/18 07:45 AST 19 U/L (15-37) 03/17/18 07:45 ALT 22 U/L (13-61) 03/17/18 07:45 Alkaline Phosphatase 60 U/L (45-117) 03/17/18 07:45 Total Protein 6.2 g/dl (6.4-8.2) L 03/17/18 07:45 Albumin 3.4 g/dl (3.4-5.0) 03/17/18 07:45 RPR Titer Nonreactive (NONREACTIVE) 03/17/18 07:45 lab noted Assessment: 03/18/18 12:25 withdrawal sx Plan: continue detox
[2018-03-18] MEDS: chlordiazePOXIDE 5 MG CAPSULE PO SCH ×2 (17:32→22:48)
[2018-03-18] MEDS: THIAMINE HCL 100 MG TABLET (FP) PO SCH (22:48)
[2018-03-19] MEDS: chlordiazePOXIDE 5 MG CAPSULE PO SCH ×2 (05:58→10:23)
--- NOTE | 2018-03-19 09:45 | PN ---
S Progress Note (SOAP) Subjective: feeling ok I need my HIV testing done Objective: 03/19/18 09:44 Vital Signs Temperature 97.9 F 03/19/18 09:29 Pulse Rate 74 03/19/18 09:29 Respiratory Rate 18 03/19/18 09:29 Blood Pressure 129/74 03/19/18 09:29 O2 Sat by Pulse Oximetry (%) aaox3 ambulating no acute distress Assessment: 03/19/18 09:45 mild withdrawal sx Plan: continue detox HIV testing ordered d/c in am
[2018-03-19] MEDS: ASPIRIN 81 MG CHEWABLE TABLETS PO SCH (10:23)
[2018-03-19] MEDS: PRENATAL VITAMINS W/ FOLIC ACID TABLET (FP) PO SCH (10:23)
[2018-03-19] MEDS: TOLNAFTATE 1% CREAM 15 GM TUBE TP SCH ×2 (11:48→22:40)
[2018-03-19] MEDS: chlordiazePOXIDE HCL 10 MG CAPSULE PO SCH ×2 (17:28→22:40)
[2018-03-19] MEDS: THIAMINE HCL 100 MG TABLET (FP) PO SCH (22:40)
[2018-03-20] MEDS: chlordiazePOXIDE HCL 10 MG CAPSULE PO SCH (06:59)
--- NOTE | 2018-03-20 08:47 | DS ---
[facility] Detox Discharge Summary Admission Date: 03/16/18 Discharge Date: 03/20/18 - History Present History: Alcohol Dependence, Cocaine Dependence - Physical Exam Results Vital Signs: Vital Signs Temperature 96.3 F L 03/20/18 07:37 Pulse Rate 67 03/20/18 07:37 Respiratory Rate 18 03/20/18 07:37 Blood Pressure 128/80 03/20/18 07:37 O2 Sat by Pulse Oximetry (%) - Treatment Hospital Course: Detox Protocol Followed, Detoxed Safely, Responded well, Discharged Condition Good, Rehab Referral Accepted - Medication Discharge Medications: Ambulatory Orders Aspirin [ASA -] 81 mg PO DAILY 04/25/17 - Diagnosis (1) Alcohol dependence with uncomplicated withdrawal Current Visit: Yes Status: Chronic (2) Cocaine dependence, uncomplicated Current Visit: Yes Status: Chronic (3) Nicotine dependence Current Visit: Yes Status: Chronic Qualifiers: Nicotine product type: cigarettes Substance use status: uncomplicated Qualified Code(s): F17.210 - Nicotine dependence, cigarettes, uncomplicated (4) Weight loss Current Visit: Yes Status: Acute - AMA Did Patient Leave Against Medical Advice: No (referred to outpatient/home)
[2018-03-20 09:15] VITALS: BP 130/61; PULSE 73; TEMP 97.2
== END 2018-03-20 08:59 | disposition home or self-care (01) | DRG 774 ==
LOC: YASAS 12:21 → Y6N 16:03
PROC: HZ2ZZZZ Detoxification Services for Substance Abuse Treatment (ICD-10-PCS; principal; 2018-03-16)
DX: F10.230 Alcohol dependence with withdrawal, uncomplicated (principal); F14.20 Cocaine dependence, uncomplicated; F17.210 Nicotine dependence, cigarettes, uncomplicated; R63.4 Abnormal weight loss; Z68.25 Body mass index [BMI] 25.0-25.9, adult
CPT/HCPCS: 36415; 80053; 85027; 86593; 87389; 90688; G0008

== ENCOUNTER 2018-05-12 12:07 | Inpatient (IN) | payer OTHER ==
[2018-05-12 14:18] VITALS: BMI 25.7
--- NOTE | 2018-05-12 16:43 | HP ---
COWS - Scale Resting Pulse: 0= [place] 80 or Below Sweatin= Chills/Flushing Restless Observation: 0= Sits Still Pupil Size: 0= Normal to Room Light Bone or Joint Aches: 2= Severe Diffuse Aches Runny Nose/ Eye Tearin= None GI Upset > 30mins: 1= Stomach Cramp Tremor Observation: 2= Slight Tremor Visible Yawning Observation: 0= None Anxiety or Irritability: 2=Irritable/Anxious Goose Flesh Skin: 0=Smooth Skin COWS Score: 8 CIWA Score Nausea/Vomitin Muscle Tremors: 4-Moderate,w/Arms Extend Anxiety: 4-Mod. Anxious/Guarded Agitation: 0-Normal Activity Paroxysmal Sweats: 2 Orientation: 0-Oriented Tacttile Disturbances: 0-None Auditory Disturbances: 0-None Visual Disturbances: 0-None Headache: 0-None Present CIWA-Ar Total Score: 13 - Admission Criteria OASAS Guidelines: Admission for Medically Managed Detox: Requires at least one of the followin. CIWA greater than 12 2. Seizures within the past 24 hours 3. Delirium tremens within the past 24 hours 4. Hallucinations within the past 24 hours 5. Acute intervention needed for co occurring medical disorder 6. Acute intervention needed for co occurring psychiatric disorder 7. Severe withdrawal that cannot be handled at a lower level of care (continued vomiting, continued diarrhea, abnormal vital signs) requiring intravenous medication and/or fluids 8. Admission ROS [facility] Allergies/Adverse Reactions: Allergies Allergy/AdvReac Type Severity Reaction Status Date / Time No Known Drug Allergies Allergy Verified 03/16/18 15:04 History of Present Illness: pt here requesting detox from etoh use , reports 3 pints /day x " years" , first age of use 16 , starts drinking in the mornings , reprots blackouts , tremors ,denies seizures , latest use yesterday , current symptoms as above . percocet - 3 /day x 10 mg each since this year , current symptoms as above xanax : 2 /day , latest use yesterday cocaine : 50 $/day via inhalation tobacco : 03/07 ppd Reference #: [id number] There are no results for the search terms that you entered. PMHX : denies PShx : denies psych : denies meds _ denies SHx : homeless , unemployed Exam Limitations: Clinical Condition - Ebola screening Have you traveled outside of the country in the last 21 days: No (N) Have you had contact with anyone from an Ebola affected area: No Have you been sick,other than usual withdrawal symptoms: No Do you have a fever: No - Review of Systems Constitutional: See HPI EENT: reports: See HPI Respiratory: reports: No Symptoms reported Cardiac: reports: No Symptoms Reported GI: reports: See HPI : reports: No Symptoms Reported Musculoskeletal: reports: Back Pain (chronic LBP) Integumentary: reports: No Symptoms Reported Neuro: reports: See HPI Endocrine: reports: No Symptoms Reported Psychiatric: reports: Orientated x3 (denies current SI / HI) Patient History - Patient Medical History Hx Anemia: No Hx Asthma: No Hx Chronic Obstructive Pulmonary Disease (COPD): No Hx Cancer: No Hx Cardiac Disorders: No Hx Congestive Heart Failure: No Hx Hypertension: No Hx Hypercholesterolemia: No Hx Pacemaker: No HX Cerebrovascular Accident: No Hx Seizures: No Hx Dementia: No Hx Diabetes: No Hx Gastrointestinal Disorders: No Hx Liver Disease: No Hx Genitourinary Disorders: No Hx Sexually Transmitted Disorders: No Hx Renal Disease (ESRD): No Hx Thyroid Disease: No Hx Human Immunodeficiency Virus (HIV): No (pt denies will like a new test) Hx Hepatitis C: No (denies) Hx Depression: No Hx Suicide Attempt: No (denies) Hx Bipolar Disorder: No Hx Schizophrenia: No - Patient Surgical History Past Surgical History: No Hx Neurologic Surgery: No Hx Cataract Extraction: No Hx Cardiac Surgery: No Hx Lung Surgery: No Hx Breast Surgery: No Hx Breast Biopsy: No Hx Abdominal Surgery: No Hx Appendectomy: No Hx Cholecystectomy: No Hx Genitourinary Surgery: No Hx Section: No Hx Orthopedic Surgery: No Anesthesia Reaction: No - PPD History Date: 03/18/18 Results: 0 mm - Smoking Cessation Smoking history: Current every day smoker Have you smoked in the past 12 months: Yes Aproximately how many cigarettes per day: 10 Cigars Per Day: 0 Hx Chewing Tobacco Use: No Initiated information on smoking cessation: No Family Disease History - Family Disease History Family Disease History: Heart Disease: Father (, [place]), Other: Grandparent (grandfather - etoh), Father, Mother ( 'natural causes'), Sister (one -healthy), Son (one - healthy) Admission Physical Exam BHS - Vital Signs Vital Signs: Vital Signs - 24 hr 05/12/18 14:16 Temperature 97 F L Pulse Rate 79 Respiratory 20 Rate Blood Pressure 114/68 - Physical General Appearance: Yes: Disheveled, Mild Distress, Anxious HEENTM: Yes: EOMI, Hearing grossly Normal, Normocephalic, Normal Voice Respiratory: Yes: Chest Non-Tender, Lungs Clear, Normal Breath Sounds Neck: Yes: No masses,lesions,Nodules, Trachea in good position Cardiology: Yes: Regular Rhythm, Regular Rate, S1, S2 Abdominal: Yes: Normal Bowel Sounds, Soft Back: Yes: Normal Inspection Musculoskeletal: Yes: full range of Motion, Gait Steady Extremities: Yes: Normal Range of Motion, Tremors Neurological: Yes: Motor Strength 5/5 Integumentary: Yes: Normal Color, Warm - Diagnostic (1) Alcohol dependence with uncomplicated withdrawal Current Visit: Yes Status: Chronic (2) Cocaine dependence, uncomplicated Current Visit: Yes Status: Chronic (3) Nicotine dependence Current Visit: Yes Status: Chronic Qualifiers: Nicotine product type: cigarettes Substance use status: uncomplicated Qualified Code(s): F17.210 - Nicotine dependence, cigarettes, uncomplicated (4) Opioid abuse Current Visit: Yes Status: Acute S Breath Alcohol Content Breath Alcohol Content: 0 Urine Drug Screen - Results Drug Screen Negative: No Urine Drug Screen Results: ELYSIA-Cocaine, BZO-Benzodiazepines, OXY-Oxycodone Inpatient Rehab Admission - Rehab Decision to Admit Inpatient rehab admission?: No
[2018-05-12] MEDS ORDERED: ACETAMINOPHEN 325 MG TABLET (FP) PO PRN ×2 (16:48)
[2018-05-12] MEDS ORDERED: chlordiazePOXIDE HCL 25 MG CAPSULE PO PRN (16:48)
[2018-05-12] MEDS ORDERED: DICYCLOMINE HCL 10 MG CAPSULE PO PRN (16:48)
[2018-05-12] MEDS ORDERED: MAGNESIUM HYDROX 2400MG/30ML ORAL SUSPENSION 30 ML CUP PO PRN (16:48)
[2018-05-12] MEDS ORDERED: MAGNESIUM CITRATE 300 ML BOTTLE PO PRN (16:48)
[2018-05-12] MEDS ORDERED: MAG HYDROX/AL HYDROX/SIMETH 30 ML UNIT-DOSE CUP PO PRN (16:48)
[2018-05-12] MEDS ORDERED: MELATONIN 5 MG TABLETS PO PRN (16:48)
[2018-05-12] MEDS ORDERED: NICOTINE POLACRILEX 2 MG GUM BUC PRN (16:48)
[2018-05-12] MEDS ORDERED: MENTHOL/PHENOL 1 EACH UD MM PRN (16:48)
[2018-05-12] MEDS ORDERED: IBUPROFEN 400 MG TABLET (FP) PO PRN (16:48)
[2018-05-12] MEDS ORDERED: METHOCARBAMOL 500 MG TABLET PO PRN (16:48)
[2018-05-12] MEDS: ASPIRIN 81 MG CHEWABLE TABLETS PO SCH (19:04)
[2018-05-12] MEDS: chlordiazePOXIDE HCL 25 MG CAPSULE PO SCH ×2 (19:05→23:05)
[2018-05-12] MEDS: THIAMINE HCL 100 MG TABLET (FP) PO SCH (23:05)
[2018-05-13] MEDS: chlordiazePOXIDE HCL 25 MG CAPSULE PO SCH ×4 (07:37→22:23)
[2018-05-13] MEDS: PRENATAL VITAMINS W/ FOLIC ACID TABLET (FP) PO SCH (10:20)
[2018-05-13] MEDS: ASPIRIN 81 MG CHEWABLE TABLETS PO SCH (10:20)
[2018-05-13 10:50] LABS: ALBUMIN 3.6 g/dl (3.4-5.0); ALK PHOS 75 U/L (45-117); ANION GAP 5 MMOL/L (8-16); BILIRUBIN,TOTAL 0.5 mg/dL (0.2-1); BLOOD UREA NITROGEN 17 mg/dL (7-18); CALCIUM 8.9 mg/dL (8.5-10.1); CHLORIDE 109 mmol/L (98-107); CO2 28 mmol/L (21-32); CREATININE 1.2 mg/dL (0.55-1.3); GLUCOSE,RANDOM 88 mg/dL (74-106); POTASSIUM 3.8 mmol/L (3.5-5.1); SGOT/AST 8 U/L (15-37); SGPT/ALT 13 U/L (13-61); SODIUM 142 mmol/L (136-145); TOT PROT 6.6 g/dl (6.4-8.2)
[2018-05-13 11:23] LABS: HEMATOCRIT 38.4 % (35.4-49); HEMOGLOBIN 12.5 GM/dL (11.7-16.9); MCH 29.2 pg (25.7-33.7); MCHC 32.7 g/dl (32.0-35.9); MEAN CELL VOLUME 89.3 fl (80-96); PLATELET COUNT 189 K/MM3 (134-434); RDW 14.1 % (11.9-15.9); WHITE BLOOD COUNT 9.1 K/mm3 (4.0-10.0)
--- NOTE | 2018-05-13 14:46 | PN ---
[facility] CIWA - CIWA Score Nausea/Vomitin-No Nausea/No Vomiting Muscle Tremors: 2 Anxiety: 2 Agitation: 2 Paroxysmal Sweats: 1-Minimal Palms Moist Orientation: 1-Uncertain about Date Tacttile Disturbances: 0-None Auditory Disturbances: 0-None Visual Disturbances: 0-None Headache: 1-Very Mild CIWA-Ar Total Score: 9 S Progress Note (SOAP) Subjective: tremor sweating irritable low energy Objective: 05/13/18 14:45 Vital Signs Temperature 98.2 F 05/13/18 13:18 Pulse Rate 62 05/13/18 13:18 Respiratory Rate 18 05/13/18 13:18 Blood Pressure 90/53 L 05/13/18 13:18 O2 Sat by Pulse Oximetry (%) Laboratory Last Values WBC 9.1 K/mm3 (4.0-10.0) 05/13/18 08:00 RBC 4.30 M/mm3 (4.00-5.60) 05/13/18 08:00 Hgb 12.5 GM/dL (11.7-16.9) 05/13/18 08:00 Hct 38.4 % (35.4-49) 05/13/18 08:00 MCV 89.3 fl (80-96) 05/13/18 08:00 MCH 29.2 pg (25.7-33.7) 05/13/18 08:00 MCHC 32.7 g/dl (32.0-35.9) 05/13/18 08:00 RDW 14.1 % (11.9-15.9) 05/13/18 08:00 Plt Count 189 K/MM3 (134-434) 05/13/18 08:00 MPV 10.0 fl (7.5-11.1) 05/13/18 08:00 Sodium 142 mmol/L (136-145) 05/13/18 08:00 Potassium 3.8 mmol/L (3.5-5.1) 05/13/18 08:00 Chloride 109 mmol/L (98-107) H 05/13/18 08:00 Carbon Dioxide 28 mmol/L (21-32) 05/13/18 08:00 Anion Gap 5 MMOL/L (8-16) L 05/13/18 08:00 BUN 17 mg/dL (7-18) 05/13/18 08:00 Creatinine 1.2 mg/dL (0.55-1.3) 05/13/18 08:00 Creat Clearance w eGFR > 60 (>60) 05/13/18 08:00 Random Glucose 88 mg/dL (74-106) 05/13/18 08:00 Calcium 8.9 mg/dL (8.5-10.1) 05/13/18 08:00 Total Bilirubin 0.5 mg/dL (0.2-1) 05/13/18 08:00 AST 8 U/L (15-37) L 05/13/18 08:00 ALT 13 U/L (13-61) 05/13/18 08:00 Alkaline Phosphatase 75 U/L (45-117) 05/13/18 08:00 Total Protein 6.6 g/dl (6.4-8.2) 05/13/18 08:00 Albumin 3.6 g/dl (3.4-5.0) 05/13/18 08:00 lab noted Assessment: 05/13/18 14:46 Vital Signs Temperature 98.2 F 05/13/18 13:18 Pulse Rate 62 05/13/18 13:18 Respiratory Rate 18 05/13/18 13:18 Blood Pressure 90/53 L 05/13/18 13:18 O2 Sat by Pulse Oximetry (%) Laboratory Last Values WBC 9.1 K/mm3 (4.0-10.0) 05/13/18 08:00 RBC 4.30 M/mm3 (4.00-5.60) 05/13/18 08:00 Hgb 12.5 GM/dL (11.7-16.9) 05/13/18 08:00 Hct 38.4 % (35.4-49) 05/13/18 08:00 MCV 89.3 fl (80-96) 05/13/18 08:00 MCH 29.2 pg (25.7-33.7) 05/13/18 08:00 MCHC 32.7 g/dl (32.0-35.9) 05/13/18 08:00 RDW 14.1 % (11.9-15.9) 05/13/18 08:00 Plt Count 189 K/MM3 (134-434) 05/13/18 08:00 MPV 10.0 fl (7.5-11.1) 05/13/18 08:00 Sodium 142 mmol/L (136-145) 05/13/18 08:00 Potassium 3.8 mmol/L (3.5-5.1) 05/13/18 08:00 Chloride 109 mmol/L (98-107) H 05/13/18 08:00 Carbon Dioxide 28 mmol/L (21-32) 05/13/18 08:00 Anion Gap 5 MMOL/L (8-16) L 05/13/18 08:00 BUN 17 mg/dL (7-18) 05/13/18 08:00 Creatinine 1.2 mg/dL (0.55-1.3) 05/13/18 08:00 Creat Clearance w eGFR > 60 (>60) 05/13/18 08:00 Random Glucose 88 mg/dL (74-106) 05/13/18 08:00 Calcium 8.9 mg/dL (8.5-10.1) 05/13/18 08:00 Total Bilirubin 0.5 mg/dL (0.2-1) 05/13/18 08:00 AST 8 U/L (15-37) L 05/13/18 08:00 ALT 13 U/L (13-61) 05/13/18 08:00 Alkaline Phosphatase 75 U/L (45-117) 05/13/18 08:00 Total Protein 6.6 g/dl (6.4-8.2) 05/13/18 08:00 Albumin 3.6 g/dl (3.4-5.0) 05/13/18 08:00 lab noted Plan: continue detox
[2018-05-13] MEDS: THIAMINE HCL 100 MG TABLET (FP) PO SCH (22:23)
[2018-05-14] MEDS: chlordiazePOXIDE HCL 25 MG CAPSULE PO SCH ×2 (07:13→10:37)
[2018-05-14] MEDS: PRENATAL VITAMINS W/ FOLIC ACID TABLET (FP) PO SCH (10:37)
[2018-05-14] MEDS: ASPIRIN 81 MG CHEWABLE TABLETS PO SCH (10:37)
--- NOTE | 2018-05-14 11:51 | PN ---
[facility] CIWA - CIWA Score Nausea/Vomitin-No Nausea/No Vomiting Muscle Tremors: 1-None Visible, but [place] Anxiety: 1-Mildly Anxious Agitation: 1-Slight > Activity Paroxysmal Sweats: 1-Minimal Palms Moist Orientation: 1-Uncertain about Date Tacttile Disturbances: 0-None Auditory Disturbances: 0-None Visual Disturbances: 0-None Headache: 1-Very Mild CIWA-Ar Total Score: 6 BHS Progress Note (SOAP) Subjective: tremor sweating trouble tolerate food no nausea no vomiting had regular bowel movement earlier today Objective: 05/14/18 11:50 Vital Signs Temperature 98.8 F 05/14/18 09:55 Pulse Rate 76 05/14/18 09:55 Respiratory Rate 18 05/14/18 09:55 Blood Pressure 90/51 L 05/14/18 09:55 O2 Sat by Pulse Oximetry (%) Laboratory Last Values WBC 9.1 K/mm3 (4.0-10.0) 05/13/18 08:00 RBC 4.30 M/mm3 (4.00-5.60) 05/13/18 08:00 Hgb 12.5 GM/dL (11.7-16.9) 05/13/18 08:00 Hct 38.4 % (35.4-49) 05/13/18 08:00 MCV 89.3 fl (80-96) 05/13/18 08:00 MCH 29.2 pg (25.7-33.7) 05/13/18 08:00 MCHC 32.7 g/dl (32.0-35.9) 05/13/18 08:00 RDW 14.1 % (11.9-15.9) 05/13/18 08:00 Plt Count 189 K/MM3 (134-434) 05/13/18 08:00 MPV 10.0 fl (7.5-11.1) 05/13/18 08:00 Sodium 142 mmol/L (136-145) 05/13/18 08:00 Potassium 3.8 mmol/L (3.5-5.1) 05/13/18 08:00 Chloride 109 mmol/L (98-107) H 05/13/18 08:00 Carbon Dioxide 28 mmol/L (21-32) 05/13/18 08:00 Anion Gap 5 MMOL/L (8-16) L 05/13/18 08:00 BUN 17 mg/dL (7-18) 05/13/18 08:00 Creatinine 1.2 mg/dL (0.55-1.3) 05/13/18 08:00 Creat Clearance w eGFR > 60 (>60) 05/13/18 08:00 Random Glucose 88 mg/dL (74-106) 05/13/18 08:00 Calcium 8.9 mg/dL (8.5-10.1) 05/13/18 08:00 Total Bilirubin 0.5 mg/dL (0.2-1) 05/13/18 08:00 AST 8 U/L (15-37) L 05/13/18 08:00 ALT 13 U/L (13-61) 05/13/18 08:00 Alkaline Phosphatase 75 U/L (45-117) 05/13/18 08:00 Total Protein 6.6 g/dl (6.4-8.2) 05/13/18 08:00 Albumin 3.6 g/dl (3.4-5.0) 05/13/18 08:00 RPR Titer Nonreactive (NONREACTIVE) 05/13/18 08:00 lab noted Assessment: 05/14/18 11:50 alcohol withdrawal sx Plan: continue detox
[2018-05-14] MEDS ORDERED: chlordiazePOXIDE HCL 10 MG CAPSULE PO PRN (17:00)
[2018-05-14] MEDS: chlordiazePOXIDE HCL 10 MG CAPSULE PO SCH ×2 (17:37→22:13)
[2018-05-14] MEDS: THIAMINE HCL 100 MG TABLET (FP) PO SCH (22:13)
[2018-05-15] MEDS: chlordiazePOXIDE HCL 10 MG CAPSULE PO SCH ×2 (06:01→10:34)
[2018-05-15 09:37] VITALS: BP 113/66; PULSE 60; TEMP 98.3
[2018-05-15] MEDS: PRENATAL VITAMINS W/ FOLIC ACID TABLET (FP) PO SCH (10:34)
[2018-05-15] MEDS: ASPIRIN 81 MG CHEWABLE TABLETS PO SCH (10:34)
--- NOTE | 2018-05-15 11:50 | DS ---
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 - Physical Exam Results Vital Signs: Vital Signs Temperature 98.3 F 05/15/18 09:37 Pulse Rate 60 05/15/18 09:37 Respiratory Rate 16 05/15/18 09:37 Blood Pressure 113/66 05/15/18 09:37 O2 Sat by Pulse Oximetry (%) Pertinent Admission Physical Exam Findings: alcohol withdrawal sx Laboratory Last Values WBC 9.1 K/mm3 (4.0-10.0) 05/13/18 08:00 RBC 4.30 M/mm3 (4.00-5.60) 05/13/18 08:00 Hgb 12.5 GM/dL (11.7-16.9) 05/13/18 08:00 Hct 38.4 % (35.4-49) 05/13/18 08:00 MCV 89.3 fl (80-96) 05/13/18 08:00 MCH 29.2 pg (25.7-33.7) 05/13/18 08:00 MCHC 32.7 g/dl (32.0-35.9) 05/13/18 08:00 RDW 14.1 % (11.9-15.9) 05/13/18 08:00 Plt Count 189 K/MM3 (134-434) 05/13/18 08:00 MPV 10.0 fl (7.5-11.1) 05/13/18 08:00 Sodium 142 mmol/L (136-145) 05/13/18 08:00 Potassium 3.8 mmol/L (3.5-5.1) 05/13/18 08:00 Chloride 109 mmol/L (98-107) H 05/13/18 08:00 Carbon Dioxide 28 mmol/L (21-32) 05/13/18 08:00 Anion Gap 5 MMOL/L (8-16) L 05/13/18 08:00 BUN 17 mg/dL (7-18) 05/13/18 08:00 Creatinine 1.2 mg/dL (0.55-1.3) 05/13/18 08:00 Creat Clearance w eGFR > 60 (>60) 05/13/18 08:00 Random Glucose 88 mg/dL (74-106) 05/13/18 08:00 Calcium 8.9 mg/dL (8.5-10.1) 05/13/18 08:00 Total Bilirubin 0.5 mg/dL (0.2-1) 05/13/18 08:00 AST 8 U/L (15-37) L 05/13/18 08:00 ALT 13 U/L (13-61) 05/13/18 08:00 Alkaline Phosphatase 75 U/L (45-117) 05/13/18 08:00 Total Protein 6.6 g/dl (6.4-8.2) 05/13/18 08:00 Albumin 3.6 g/dl (3.4-5.0) 05/13/18 08:00 RPR Titer Nonreactive (NONREACTIVE) 05/13/18 08:00 HIV 1&2 Antibody Screen Negative 05/14/18 09:22 HIV P24 Antigen Negative 05/14/18 09:22 lab noted - Treatment Hospital Course: Detox Protocol Followed, Detoxed Safely, Responded well, Discharged Condition Good, Rehab Referral Accepted Patient has Accepted a Rehab Referral to: [facility] - Medication Discharge Medications: Ambulatory Orders Aspirin [ASA -] 81 mg PO DAILY 04/25/17 Naloxone HCl [Narcan] 4 mg NS ASDIR PRN 05/13/18 - Diagnosis (1) Nicotine dependence Current Visit: Yes Status: Acute Qualifiers: Nicotine product type: cigarettes Substance use status: in withdrawal Qualified Code(s): F17.213 - Nicotine dependence, cigarettes, with withdrawal (2) Alcohol dependence with uncomplicated withdrawal Current Visit: Yes Status: Acute - AMA Did Patient Leave Against Medical Advice: No
[2018-05-15] MEDS ORDERED: chlordiazePOXIDE HCL 10 MG CAPSULE PO SCH (17:00)
== END 2018-05-15 12:25 | disposition home or self-care (01) | DRG 773 ==
LOC: YASAS 12:07 → Y3N 17:32
PROVIDERS: ADMIT Surgery; ATTEND Surgery
PROC: HZ2ZZZZ Detoxification Services for Substance Abuse Treatment (ICD-10-PCS; principal; 2018-05-12)
DX: F10.230 Alcohol dependence with withdrawal, uncomplicated (principal); F14.20 Cocaine dependence, uncomplicated; F11.10 Opioid abuse, uncomplicated; F17.213 Nicotine dependence, cigarettes, with withdrawal
CPT/HCPCS: 36415; 80053; 85027; 86593; 87389

== ENCOUNTER 2018-07-17 09:32 | Inpatient (IN) | payer OTHER ==
[2018-07-17 10:04] VITALS: BMI 26.3
--- NOTE | 2018-07-17 11:41 | HP ---
CIWA Score Nausea/Vomitin-No Nausea/No Vomiting Muscle Tremors: None Anxiety: 4-Mod. Anxious/Guarded Agitation: 4-Moderately Restless Paroxysmal Sweats: No Perspiration Orientation: 0-Oriented Tacttile Disturbances: 0-None Auditory Disturbances: 0-None Visual Disturbances: 0-None Headache: 5-Severe CIWA-Ar Total Score: 13 - Admission Criteria OASAS Guidelines: Admission for Medically Managed Detox: Requires at least one of the followin. CIWA greater than 12 2. Seizures within the past 24 hours 3. Delirium tremens within the past 24 hours 4. Hallucinations within the past 24 hours 5. Acute intervention needed for co occurring medical disorder 6. Acute intervention needed for co occurring psychiatric disorder 7. Severe withdrawal that cannot be handled at a lower level of care (continued vomiting, continued diarrhea, abnormal vital signs) requiring intravenous medication and/or fluids 8. Admission ROS S - HPI Allergies/Adverse Reactions: Allergies Allergy/AdvReac Type Severity Reaction Status Date / Time No Known Drug Allergies Allergy Verified 07/17/18 09:55 History of Present Illness: pt here requesting detox from benzo use , reports 3 x 2 mg xanax daily , relapse after d/c from this facility , denies seizures , use x 10 years , latest use yesterday . etoh use , reports 3 pints /day x " years" , first age of use 16 , starts drinking in the mornings , reports blackouts , tremors ,denies seizures , latest use yesterday around 8 pm , current symptoms as above . Longest sobriety 2 years w/ meetings, working [id number] . cocaine : 50 $/day via inhalation tobacco : 1/ ppd PMHX/PSHX / Psych : denies meds : denies Exam Limitations: No Limitations - Ebola screening Have you traveled outside of the country in the last 21 days: No (N) Have you had contact with anyone from an Ebola affected area: No Do you have a fever: No - Review of Systems Constitutional: See HPI EENT: reports: See HPI Respiratory: reports: No Symptoms reported Cardiac: reports: No Symptoms Reported GI: reports: Diarrhea : reports: No Symptoms Reported Musculoskeletal: reports: Muscle Pain Integumentary: reports: No Symptoms Reported Neuro: reports: See HPI, Headache Psychiatric: reports: Orientated x3, Agitated, Anxious Patient History - Patient Medical History Hx Anemia: No Hx Asthma: No Hx Chronic Obstructive Pulmonary Disease (COPD): No Hx Cancer: No Hx Cardiac Disorders: No Hx Congestive Heart Failure: No Hx Hypertension: No Hx Hypercholesterolemia: No Hx Pacemaker: No HX Cerebrovascular Accident: No Hx Seizures: No Hx Dementia: No Hx Diabetes: No Hx Gastrointestinal Disorders: No Hx Liver Disease: No Hx Genitourinary Disorders: No Hx Sexually Transmitted Disorders: No Hx Renal Disease (ESRD): No Hx Thyroid Disease: No Hx Human Immunodeficiency Virus (HIV): No (pt denies will like a new test) Hx Hepatitis C: No (denies) Hx Depression: No Hx Suicide Attempt: No (denies) Hx Bipolar Disorder: No Hx Schizophrenia: No - Patient Surgical History Past Surgical History: No Hx Neurologic Surgery: No Hx Cataract Extraction: No Hx Cardiac Surgery: No Hx Lung Surgery: No Hx Breast Surgery: No Hx Breast Biopsy: No Hx Abdominal Surgery: No Hx Appendectomy: No Hx Cholecystectomy: No Hx Genitourinary Surgery: No Hx Section: No Hx Orthopedic Surgery: No Anesthesia Reaction: No - PPD History Date: 03/18/18 Results: 0 mm - Smoking Cessation Smoking history: Current every day smoker Have you smoked in the past 12 months: Yes Aproximately how many cigarettes per day: 10 Cigars Per Day: 0 Hx Chewing Tobacco Use: No Initiated information on smoking cessation: No - Substances abused Alcohol Substance route: Oral Frequency: Daily Amount used: VODKA- 3PT Age of first use: 16 Date of last use: 07/16/18 Alprazolam (Xanax) Substance route: Oral Frequency: Daily Amount used: 4MG Age of first use: 41 Date of last use: 07/16/18 Family Disease History - Family Disease History Family Disease History: Heart Disease: Father (, [place]), Other: Grandparent (grandfather - etoh), Father, Mother ( 'natural causes'), Sister (one -healthy), Son (one - healthy) Admission Physical Exam BHS - Vital Signs Vital Signs: Vital Signs - 24 hr 07/17/18 09:50 Temperature 98 F Pulse Rate 78 Respiratory 20 Rate Blood Pressure 124/72 - Physical General Appearance: Yes: Mild Distress, Anxious HEENTM: Yes: EOMI, Hearing grossly Normal, Normocephalic, Normal Voice Respiratory: Yes: Chest Non-Tender, Lungs Clear, Normal Breath Sounds Neck: Yes: No masses,lesions,Nodules, Trachea in good position Cardiology: Yes: Regular Rhythm, Regular Rate, S1, S2 Back: Yes: Normal Inspection Musculoskeletal: Yes: Gait Steady Extremities: Yes: Normal Range of Motion, Non-Tender Neurological: Yes: Alert, Motor Strength 5/5 Integumentary: Yes: Warm - Diagnostic (1) Alcohol dependence with uncomplicated withdrawal Current Visit: Yes Status: Acute (2) Nicotine dependence Current Visit: Yes Status: Chronic Qualifiers: Nicotine product type: cigarettes (3) Cocaine dependence, uncomplicated Current Visit: No Status: Chronic Breathalyzer - Breathalyzer Breathalyzer: 0 Urine Drug Screen - Test Device Lot number: [id number] Expiration date: 04/05/20 - Control Is test valid?: Yes - Results Drug screen NEGATIVE: No Urine drug screen results: ELYSIA-Cocaine, BZO-Benzodiazepines Inpatient Rehab Admission - Rehab Decision to Admit Inpatient rehab admission?: No
[2018-07-17] MEDS ORDERED: BISMUTH SUBSALICYLATE 262 MG/15 ML BTL PO PRN (11:45)
[2018-07-17] MEDS ORDERED: MAGNESIUM HYDROX 2400MG/30ML ORAL SUSPENSION 30 ML CUP PO PRN (11:45)
[2018-07-17] MEDS ORDERED: IBUPROFEN 400 MG TABLET (FP) PO PRN (11:45)
[2018-07-17] MEDS ORDERED: MAG HYDROX/AL HYDROX/SIMETH 30 ML UNIT-DOSE CUP PO PRN (11:45)
[2018-07-17] MEDS ORDERED: MAGNESIUM CITRATE 300 ML BOTTLE PO PRN (11:45)
[2018-07-17] MEDS ORDERED: MELATONIN 5 MG TABLETS PO PRN (11:45)
[2018-07-17] MEDS ORDERED: chlordiazePOXIDE HCL 25 MG CAPSULE PO PRN (11:45)
[2018-07-17] MEDS ORDERED: ACETAMINOPHEN 325 MG TABLET (FP) PO PRN ×2 (11:45)
[2018-07-17] MEDS ORDERED: MENTHOL/PHENOL 1 EACH UD MM PRN (11:45)
[2018-07-17] MEDS ORDERED: NICOTINE POLACRILEX 2 MG GUM BUC PRN (11:45)
[2018-07-17 15:52] LABS: HEMATOCRIT 42.4 % (35.4-49); HEMOGLOBIN 13.3 GM/dL (11.7-16.9); MCH 28.1 pg (25.7-33.7); MCHC 31.5 g/dl (32.0-35.9); MEAN CELL VOLUME 89.2 fl (80-96); MEAN PLT VOLUME 9.4 fl (7.5-11.1); PLATELET COUNT 253 K/MM3 (134-434); RBC 4.75 M/mm3 (4.00-5.60); RDW 14.5 % (11.9-15.9); WHITE BLOOD COUNT 8.4 K/mm3 (4.0-10.0)
[2018-07-17 16:10] LABS: ALBUMIN 4.2 g/dl (3.4-5.0); BILIRUBIN,TOTAL 0.8 mg/dL (0.2-1); CALCIUM 9.9 mg/dL (8.5-10.1); CREATININE 1.2 mg/dL (0.55-1.3); POTASSIUM 4.5 mmol/L (3.5-5.1); TOT PROT 7.7 g/dl (6.4-8.2)
[2018-07-17] MEDS: chlordiazePOXIDE HCL 25 MG CAPSULE PO SCH ×2 (17:28→22:49)
[2018-07-17] MEDS: THIAMINE HCL 100 MG TABLET (FP) PO SCH (22:50)
[2018-07-18] MEDS: chlordiazePOXIDE HCL 25 MG CAPSULE PO SCH ×4 (06:07→22:27)
[2018-07-18] MEDS: PRENATAL VITAMINS W/ FOLIC ACID TABLET (FP) PO SCH (10:09)
[2018-07-18] MEDS: ASPIRIN 81 MG CHEWABLE TABLETS PO SCH (10:10)
--- NOTE | 2018-07-18 11:43 | PN ---
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 Objective: 07/18/18 11:42 Vital Signs Temperature 97.0 F L 07/18/18 09:15 Pulse Rate 81 07/18/18 09:15 Respiratory Rate 18 07/18/18 09:15 Blood Pressure 117/74 07/18/18 09:15 O2 Sat by Pulse Oximetry (%) Laboratory Last Values WBC 8.4 K/mm3 (4.0-10.0) 07/17/18 12:05 RBC 4.75 M/mm3 (4.00-5.60) 07/17/18 12:05 Hgb 13.3 GM/dL (11.7-16.9) 07/17/18 12:05 Hct 42.4 % (35.4-49) 07/17/18 12:05 MCV 89.2 fl (80-96) 07/17/18 12:05 MCH 28.1 pg (25.7-33.7) 07/17/18 12:05 MCHC 31.5 g/dl (32.0-35.9) L 07/17/18 12:05 RDW 14.5 % (11.9-15.9) 07/17/18 12:05 Plt Count 253 K/MM3 (134-434) D 07/17/18 12:05 MPV 9.4 fl (7.5-11.1) 07/17/18 12:05 Sodium 140 mmol/L (136-145) 07/17/18 12:05 Potassium 4.5 mmol/L (3.5-5.1) 07/17/18 12:05 Chloride 108 mmol/L (98-107) H 07/17/18 12:05 Carbon Dioxide 29 mmol/L (21-32) 07/17/18 12:05 Anion Gap 3 MMOL/L (8-16) L 07/17/18 12:05 BUN 18 mg/dL (7-18) 07/17/18 12:05 Creatinine 1.2 mg/dL (0.55-1.3) 07/17/18 12:05 Est GFR (CKD-EPI)AfAm 77.33 07/17/18 12:05 Est GFR (CKD-EPI)NonAf 66.72 07/17/18 12:05 Random Glucose 89 mg/dL (74-106) 07/17/18 12:05 Calcium 9.9 mg/dL (8.5-10.1) 07/17/18 12:05 Total Bilirubin 0.8 mg/dL (0.2-1) 07/17/18 12:05 AST 32 U/L (15-37) 07/17/18 12:05 ALT 28 U/L (13-61) 07/17/18 12:05 Alkaline Phosphatase 76 U/L (45-117) 07/17/18 12:05 Total Protein 7.7 g/dl (6.4-8.2) 07/17/18 12:05 Albumin 4.2 g/dl (3.4-5.0) 07/17/18 12:05 RPR Titer Nonreactive (NONREACTIVE) 07/17/18 12:05 lab noted Assessment: 07/18/18 11:42 withdrawal sx Plan: continue detox
[2018-07-18] MEDS: THIAMINE HCL 100 MG TABLET (FP) PO SCH (22:27)
[2018-07-19] MEDS: chlordiazePOXIDE HCL 25 MG CAPSULE PO SCH ×2 (06:22→10:23)
[2018-07-19] MEDS: PRENATAL VITAMINS W/ FOLIC ACID TABLET (FP) PO SCH (10:23)
[2018-07-19] MEDS: ASPIRIN 81 MG CHEWABLE TABLETS PO SCH (10:23)
--- NOTE | 2018-07-19 13:28 | PN ---
[facility] CIWA - CIWA Score Nausea/Vomitin-No Nausea/No Vomiting Muscle Tremors: 1-None Visible, but [place] Anxiety: 2 Agitation: 1-Slight > Activity Paroxysmal Sweats: 1-Minimal Palms Moist Orientation: 0-Oriented Tacttile Disturbances: 0-None Auditory Disturbances: 0-None Visual Disturbances: 0-None Headache: 0-None Present CIWA-Ar Total Score: 5 [facility] Progress Note (SOAP) Subjective: feeling ok today ambulating on hallway social with peers more energy Objective: 07/19/18 13:28 Vital Signs Temperature 98.5 F 07/19/18 09:44 Pulse Rate 64 07/19/18 09:44 Respiratory Rate 20 07/19/18 09:44 Blood Pressure 106/66 07/19/18 09:44 O2 Sat by Pulse Oximetry (%) Laboratory Last Values WBC 8.4 K/mm3 (4.0-10.0) 07/17/18 12:05 RBC 4.75 M/mm3 (4.00-5.60) 07/17/18 12:05 Hgb 13.3 GM/dL (11.7-16.9) 07/17/18 12:05 Hct 42.4 % (35.4-49) 07/17/18 12:05 MCV 89.2 fl (80-96) 07/17/18 12:05 MCH 28.1 pg (25.7-33.7) 07/17/18 12:05 MCHC 31.5 g/dl (32.0-35.9) L 07/17/18 12:05 RDW 14.5 % (11.9-15.9) 07/17/18 12:05 Plt Count 253 K/MM3 (134-434) D 07/17/18 12:05 MPV 9.4 fl (7.5-11.1) 07/17/18 12:05 Sodium 140 mmol/L (136-145) 07/17/18 12:05 Potassium 4.5 mmol/L (3.5-5.1) 07/17/18 12:05 Chloride 108 mmol/L (98-107) H 07/17/18 12:05 Carbon Dioxide 29 mmol/L (21-32) 07/17/18 12:05 Anion Gap 3 MMOL/L (8-16) L 07/17/18 12:05 BUN 18 mg/dL (7-18) 07/17/18 12:05 Creatinine 1.2 mg/dL (0.55-1.3) 07/17/18 12:05 Est GFR (CKD-EPI)AfAm 77.33 07/17/18 12:05 Est GFR (CKD-EPI)NonAf 66.72 07/17/18 12:05 Random Glucose 89 mg/dL (74-106) 07/17/18 12:05 Calcium 9.9 mg/dL (8.5-10.1) 07/17/18 12:05 Total Bilirubin 0.8 mg/dL (0.2-1) 07/17/18 12:05 AST 32 U/L (15-37) 07/17/18 12:05 ALT 28 U/L (13-61) 07/17/18 12:05 Alkaline Phosphatase 76 U/L (45-117) 07/17/18 12:05 Total Protein 7.7 g/dl (6.4-8.2) 07/17/18 12:05 Albumin 4.2 g/dl (3.4-5.0) 07/17/18 12:05 RPR Titer Nonreactive (NONREACTIVE) 07/17/18 12:05 lab noted Assessment: 07/19/18 13:28 withdrawal sx Plan: continue detox
[2018-07-19] MEDS ORDERED: chlordiazePOXIDE HCL 10 MG CAPSULE PO PRN (17:00)
[2018-07-19] MEDS: chlordiazePOXIDE HCL 10 MG CAPSULE PO SCH ×2 (17:10→22:25)
[2018-07-19] MEDS: THIAMINE HCL 100 MG TABLET (FP) PO SCH (21:54)
[2018-07-20] MEDS: chlordiazePOXIDE HCL 10 MG CAPSULE PO SCH ×2 (05:44→10:13)
[2018-07-20 09:36] VITALS: BP 110/59; PULSE 78; TEMP 97.9
[2018-07-20] MEDS: PRENATAL VITAMINS W/ FOLIC ACID TABLET (FP) PO SCH (10:13)
[2018-07-20] MEDS: ASPIRIN 81 MG CHEWABLE TABLETS PO SCH (10:13)
--- NOTE | 2018-07-20 14:04 | DS ---
[facility] Detox Discharge Summary Admission Date: 07/17/18 Discharge Date: 07/20/18 - History Present History: Alcohol Dependence, Cocaine Dependence Additional Comments: PATIENT REPORTS THAT HE FEELS WELL OVERALL AT TIME OF DISCHARGE FORM DETOX UNIT. PATIENT GOING TO [facility] ([place], [place]) FOR AFTERCARE. PATIENT WAS DISCHARGED FORM DETOX UNIT TO BE TAKEN OVER TO REHAB UNIT IN STABLE MEDICAL CONDITION. Pertinent Past History: Nicotine Dependence. - Physical Exam Results Vital Signs: Vital Signs Temperature 97.9 F 07/20/18 09:35 Pulse Rate 78 07/20/18 09:35 Respiratory Rate 20 07/20/18 09:35 Blood Pressure 110/59 L 07/20/18 09:35 O2 Sat by Pulse Oximetry (%) Pertinent Admission Physical Exam Findings: WITHDRAWAL SYMPTOMS. Laboratory Tests 07/17/18 07/17/18 07/17/18 12:05 12:05 12:05 WBC 8.4 RBC 4.75 Hgb 13.3 Hct 42.4 MCV 89.2 MCH 28.1 MCHC 31.5 L RDW 14.5 Plt Count 253 D MPV 9.4 Sodium 140 Potassium 4.5 Chloride 108 H Carbon Dioxide 29 Anion Gap 3 L BUN 18 Creatinine 1.2 Est GFR (CKD-EPI)AfAm 77.33 Est GFR (CKD-EPI)NonAf 66.72 Random Glucose 89 Calcium 9.9 Total Bilirubin 0.8 AST 32 ALT 28 Alkaline Phosphatase 76 Total Protein 7.7 Albumin 4.2 RPR Titer Nonreactive LABS NOTED. - Treatment Hospital Course: Detox Protocol Followed, Detoxed Safely, Responded well, Discharged Condition Good, Rehab Referral Accepted Patient has Accepted a Rehab Referral to: [facility] ([place], [place]). - Medication Discharge Medications: Ambulatory Orders Aspirin [ASA -] 81 mg PO DAILY 04/25/17 - Diagnosis (1) Alcohol dependence with uncomplicated withdrawal Status: Acute (2) Cocaine dependence, uncomplicated Status: Chronic (3) Nicotine dependence Status: Chronic Qualifiers: Nicotine product type: cigarettes Substance use status: uncomplicated Qualified Code(s): F17.210 - Nicotine dependence, cigarettes, uncomplicated - AMA Did Patient Leave Against Medical Advice: No
[2018-07-20] MEDS ORDERED: chlordiazePOXIDE HCL 10 MG CAPSULE PO SCH (17:00)
== END 2018-07-20 13:42 | disposition other institution (70) | DRG 774 ==
LOC: YASAS 09:32 → Y3N 11:53
PROVIDERS: ADMIT Surgery; ATTEND Surgery
PROC: HZ2ZZZZ Detoxification Services for Substance Abuse Treatment (ICD-10-PCS; principal; 2018-07-17)
DX: F10.230 Alcohol dependence with withdrawal, uncomplicated (principal); F14.20 Cocaine dependence, uncomplicated; F17.210 Nicotine dependence, cigarettes, uncomplicated
CPT/HCPCS: 36415; 80053; 85027; 86593

== ENCOUNTER 2018-07-20 13:59 | Inpatient (IN) | payer OTHER ==
--- NOTE | 2018-07-20 14:07 | HP ---
[facility] Rehab Assess/Revision - Admission History Admitted to Rehab from: [facility] Date of Admission to Rehab: 07/20/2018 - Vital signs Vital Signs: NOTED; STABLE. - Findings Detox History & Physical reviewed: Yes Concur with findings: Yes Comments/Additional Findings: PATIENT'S MEDICAL / MEDICATION HISTORY REVIEWED PRIOR TO DISCHARGE FROM DETOX UNIT. PATIENT WAS DISCHARGED FROM DETOX UNIT TO BE TAKEN OVER TO REHAB UNIT IN STABLE MEDICAL CONDITION. Inpatient Rehab Admission - Rehab Decision to Admit Inpatient rehab admission?: Yes - Initial Determination Are CD services needed?: Yes Free of communicable disease: Yes Not in need of hospitalization: Yes - Rehab Admission Criteria Previous failed treatment: Yes Poor recovery environment: Yes Comorbidities: Yes Lacks judgement: No Patient is meeting Inpatient Rehab admission criteria:: Yes
[2018-07-20] MEDS ORDERED: IBUPROFEN 400 MG TABLET (FP) PO PRN (14:08)
[2018-07-20] MEDS ORDERED: guaiFENesin 200 MG/10 ML 10 ML UNIT-DOSE CUPS PO PRN (14:08)
[2018-07-20] MEDS ORDERED: P-EPHED 60MG/TRIPROLIDI 2.5MG TABLET PO PRN (14:08)
[2018-07-20] MEDS ORDERED: MAGNESIUM HYDROX 2400MG/30ML ORAL SUSPENSION 30 ML CUP PO PRN (14:08)
[2018-07-20] MEDS ORDERED: ACETAMINOPHEN 325 MG TABLET (FP) PO PRN (14:08)
[2018-07-20] MEDS ORDERED: MENTHOL/PHENOL 1 EACH UD MM PRN (14:08)
[2018-07-20] MEDS ORDERED: MAGNESIUM CITRATE 300 ML BOTTLE PO PRN (14:08)
[2018-07-20] MEDS ORDERED: MAG HYDROX/AL HYDROX/SIMETH 30 ML UNIT-DOSE CUP PO PRN (14:08)
[2018-07-20] MEDS ORDERED: NICOTINE POLACRILEX 2 MG GUM BUC PRN (14:08)
[2018-07-20] MEDS ORDERED: LOPERAMIDE HCL 2 MG CAPSULE PO PRN (14:08)
[2018-07-20] MEDS: THIAMINE HCL 100 MG TABLET (FP) PO SCH (21:27)
[2018-07-20] MEDS ORDERED: MELATONIN 5 MG TABLETS PO PRN (22:00)
[2018-07-21] MEDS: ASPIRIN 81 MG CHEWABLE TABLETS PO SCH (09:54)
[2018-07-21] MEDS: PRENATAL VITAMINS W/ FOLIC ACID TABLET (FP) PO SCH (09:54)
[2018-07-21] MEDS: THIAMINE HCL 100 MG TABLET (FP) PO SCH (21:19)
[2018-07-22] MEDS: ASPIRIN 81 MG CHEWABLE TABLETS PO SCH (10:02)
[2018-07-22] MEDS: PRENATAL VITAMINS W/ FOLIC ACID TABLET (FP) PO SCH (10:02)
[2018-07-22] MEDS: THIAMINE HCL 100 MG TABLET (FP) PO SCH (21:14)
[2018-07-23] MEDS: ASPIRIN 81 MG CHEWABLE TABLETS PO SCH (10:24)
[2018-07-23] MEDS: PRENATAL VITAMINS W/ FOLIC ACID TABLET (FP) PO SCH (10:24)
[2018-07-23] MEDS: THIAMINE HCL 100 MG TABLET (FP) PO SCH (21:16)
[2018-07-24 06:49] VITALS: BP 120/74; PULSE 61; TEMP 97.5
--- NOTE | 2018-07-24 09:40 | PN ---
[facility] Progress Note Note: PT WAS REFERRED TO REHAB ON 07/20/18 FROM DETOX. TODAY, PT DECLINED TO CONTINUE WITH REHAB STATING "FAMILY EMERGENCY" REASONS. PT WAS SEEN BY HIS CONSELOR MS. KIM HARRISON AND WAS REFERRED TO [facility] FOR CD AFTERCARE. PT REPORTS HE HAS PRIMARY CARE AT [facility]. DID NOT INDICATE SPECIFIC PMD. PT IS ALERT O X 3. DENIES S/H/I. Vital Signs 07/24/18 07/24/18 03:30 06:46 Temperature 97.5 F L Pulse Rate 61 Respiratory 18 18 Rate Blood Pressure 120/74 NAD PLAN:FOLLOW UP WITH CD AFTERCARE RECOMMENDATIONS AT [facility] FOLLOW UP WITH PCP WITHIN 1-2 WEEKS AFTER DISCHARGE FOR MEDICAL MANAGEMENT.
[2018-07-24] MEDS: ASPIRIN 81 MG CHEWABLE TABLETS PO SCH (09:56)
[2018-07-24] MEDS: PRENATAL VITAMINS W/ FOLIC ACID TABLET (FP) PO SCH (09:56)
== END 2018-07-24 10:05 | disposition left against medical advice (07) | DRG 770 ==
LOC: YASAS 13:59 → Y5N 14:00
PROVIDERS: ADMIT Neuromusculoskeletal Medicine & OMM; ATTEND Neuromusculoskeletal Medicine & OMM
PROC: HZ42ZZZ Group Counseling for Substance Abuse Treatment, Cognitive-Behavioral (ICD-10-PCS; principal; 2018-07-20)
DX: F10.20 Alcohol dependence, uncomplicated (principal); F14.20 Cocaine dependence, uncomplicated; F17.210 Nicotine dependence, cigarettes, uncomplicated

== ENCOUNTER 2018-08-31 12:48 | Inpatient (IN) | payer OTHER ==
[2018-08-31 13:30] VITALS: BMI 25.1
--- NOTE | 2018-08-31 15:12 | HP ---
CIWA Score Nausea/Vomitin-No Nausea/No Vomiting Muscle Tremors: 3 Anxiety: 3 Agitation: 3 Paroxysmal Sweats: 3 Orientation: 0-Oriented Tacttile Disturbances: 0-None Auditory Disturbances: 0-None Visual Disturbances: 0-None Headache: 1-Very Mild CIWA-Ar Total Score: 13 - Admission Criteria OASAS Guidelines: Admission for Medically Managed Detox: Requires at least one of the followin. CIWA greater than 12 2. Seizures within the past 24 hours 3. Delirium tremens within the past 24 hours 4. Hallucinations within the past 24 hours 5. Acute intervention needed for co occurring medical disorder 6. Acute intervention needed for co occurring psychiatric disorder 7. Severe withdrawal that cannot be handled at a lower level of care (continued vomiting, continued diarrhea, abnormal vital signs) requiring intravenous medication and/or fluids 8. Admission ROS [facility] - HPI Chief Complaint: I need help with my long alcohol use. Allergies/Adverse Reactions: Allergies Allergy/AdvReac Type Severity Reaction Status Date / Time No Known Drug Allergies Allergy Verified 08/31/18 13:24 History of Present Illness: pt is a 58yrold male with a history of alcohol, cocaine and xanax dependence seeking detox for treatment. Exam Limitations: No Limitations - Ebola screening Have you traveled outside of the country in the last 21 days: No Have you had contact with anyone from an Ebola affected area: No Have you been sick,other than usual withdrawal symptoms: No Do you have a fever: No - Review of Systems Constitutional: Chills, Night Sweats, Changes in sleep EENT: reports: Tearing, Nose Congestion Respiratory: reports: No Symptoms reported Cardiac: reports: Other (black-out) GI: reports: Poor Appetite, Poor Fluid Intake : reports: No Symptoms Reported Musculoskeletal: reports: Back Pain Integumentary: reports: Bruising (left elbow healing bruise,scabbed over), Flushing, Sweating Neuro: reports: Headache, Seizure, Tingling, Tremors Endocrine: reports: Excessive Sweating, Flushing, Intolerance to Cold, Intolerance to Heat Hematology: reports: No Symptoms Reported Psychiatric: reports: Judgement Intact, Mood/Affect Appropiate, Orientated x3, Agitated, Anxious Other Systems: Reviewed and Negative Patient History - Patient Medical History Hx Anemia: No Hx Asthma: No Hx Chronic Obstructive Pulmonary Disease (COPD): No Hx Cancer: No Hx Cardiac Disorders: No Hx Congestive Heart Failure: No Hx Hypertension: No Hx Hypercholesterolemia: No Hx Pacemaker: No HX Cerebrovascular Accident: No Hx Seizures: No Hx Dementia: No Hx Diabetes: No Hx Gastrointestinal Disorders: No Hx Liver Disease: No Hx Genitourinary Disorders: No Hx Sexually Transmitted Disorders: No Hx Renal Disease (ESRD): No Hx Thyroid Disease: No Hx Human Immunodeficiency Virus (HIV): No (pt denies will like a new test) Hx Hepatitis C: No (denies) Hx Depression: No Hx Suicide Attempt: No (denies) Hx Bipolar Disorder: No Hx Schizophrenia: No - Patient Surgical History Past Surgical History: No Hx Neurologic Surgery: No Hx Cataract Extraction: No Hx Cardiac Surgery: No Hx Lung Surgery: No Hx Breast Surgery: No Hx Breast Biopsy: No Hx Abdominal Surgery: No Hx Appendectomy: No Hx Cholecystectomy: No Hx Genitourinary Surgery: No Hx Section: No Hx Orthopedic Surgery: No Anesthesia Reaction: No - PPD History Previous Implant?: Yes Documented Results: Negative w/proof Date: 03/18/18 Results: 0 mm PPD to be Administered?: No - Reproductive History Patient is a Female of Child Bearing Age (11 -55 yrs old): No - Smoking Cessation Smoking history: Current every day smoker Have you smoked in the past 12 months: Yes Aproximately how many cigarettes per day: 10 Cigars Per Day: 0 Hx Chewing Tobacco Use: No Initiated information on smoking cessation: Yes 'Breaking Loose' booklet given: 08/31/18 - Substance & Tx. History Hx Alcohol Use: Yes Hx Substance Use: Yes Substance Use Type: Alcohol, Prescribed, Tranquilizers Hx Substance Use Treatment: Yes (last detox [facility] 07/2018) - Substances abused Alcohol Substance route: Oral Frequency: Daily Amount used: VODKA- 3PT Age of first use: 16 Date of last use: 08/30/18 Alprazolam (Xanax) Substance route: Oral Frequency: Daily Amount used: 2mg Age of first use: 41 Date of last use: 08/30/18 Cocaine Substance route: Inhalation Frequency: 1-2 times per week Amount used: 50usd Age of first use: 22 Date of last use: 08/30/18 Family Disease History - Family Disease History Family Disease History: Heart Disease: Father (, [place]), Other: Grandparent (grandfather - etoh), Father, Mother ( 'natural causes'), Sister (one -healthy), Son (one - healthy) Admission Physical Exam [facility] - Vital Signs Vital Signs: Vital Signs - 24 hr 08/31/18 08/31/18 13:25 14:58 Temperature 97.1 F L 97.1 F L Pulse Rate 70 70 Respiratory 20 20 Rate Blood Pressure 108/67 108/67 - Physical General Appearance: Yes: Appropriately Dressed, Moderate Distress, Tremorous, Irritable, Sweating, Anxious HEENTM: Yes: Normal Voice, Nasal Congestion, Rhinorrhea Respiratory: Yes: Lungs Clear, Normal Breath Sounds, No Respiratory Distress Neck: Yes: No masses,lesions,Nodules Breast: Yes: Within Normal Limits Cardiology: Yes: Regular Rhythm, Regular Rate, S1, S2 Abdominal: Yes: Normal Bowel Sounds, Non Tender, Soft Genitourinary: Yes: Within Normal Limits Back: Yes: Normal Inspection Musculoskeletal: Yes: full range of Motion, Back pain Extremities: Yes: Normal Capillary Refill, Normal Inspection, Non-Tender, Tremors Neurological: Yes: Fully Oriented, Alert, Normal Response Integumentary: Yes: Normal Color, Diaphoresis Lymphatic: Yes: Within Normal Limits - Diagnostic (1) Alcohol dependence with uncomplicated withdrawal Current Visit: Yes Status: Chronic (2) Weight loss Current Visit: No Status: Acute (3) Cocaine dependence, uncomplicated Current Visit: Yes Status: Chronic (4) Nicotine dependence Current Visit: Yes Status: Chronic Qualifiers: Nicotine product type: cigarettes Substance use status: uncomplicated Qualified Code(s): F17.210 - Nicotine dependence, cigarettes, uncomplicated Cleared for Admission [facility] - Detox or Rehab [facility] Level of Care: Medically Managed Detox Regimen/Protocol: Librium Breathalyzer - Breathalyzer Breathalyzer: 0 Urine Drug Screen - Test Device Lot number: [id number] Expiration date: 05/03/20 - Control Is test valid?: Yes - Results Drug screen NEGATIVE: No Urine drug screen results: ELYSIA-Cocaine, BZO-Benzodiazepines Inpatient Rehab Admission - Rehab Decision to Admit Inpatient rehab admission?: No
[2018-08-31] MEDS ORDERED: BISMUTH SUBSALICYLATE 262 MG/15 ML BTL PO PRN (15:22)
[2018-08-31] MEDS ORDERED: NICOTINE POLACRILEX 4 MG GUM BUC PRN (15:22)
[2018-08-31] MEDS ORDERED: MENTHOL/PHENOL 1 EACH UD MM PRN (15:22)
[2018-08-31] MEDS ORDERED: MAGNESIUM CITRATE 300 ML BOTTLE PO PRN (15:22)
[2018-08-31] MEDS ORDERED: MAG HYDROX/AL HYDROX/SIMETH 30 ML UNIT-DOSE CUP PO PRN (15:22)
[2018-08-31] MEDS ORDERED: MAGNESIUM HYDROX 2400MG/30ML ORAL SUSPENSION 30 ML CUP PO PRN (15:22)
[2018-08-31] MEDS ORDERED: ONDANSETRON *ODT* 4 MG TABLET SL PRN (15:22)
[2018-08-31] MEDS ORDERED: P-EPHED 60MG/TRIPROLIDI 2.5MG TABLET PO PRN (15:22)
[2018-08-31] MEDS ORDERED: chlordiazePOXIDE HCL 25 MG CAPSULE PO PRN (15:22)
[2018-08-31] MEDS ORDERED: hydrOXYzine PAMOATE 25 MG CAPSULE (FP) PO PRN (15:22)
[2018-08-31] MEDS ORDERED: METHOCARBAMOL 500 MG TABLET PO PRN (15:22)
[2018-08-31] MEDS ORDERED: ACETAMINOPHEN 325 MG TABLET (FP) PO PRN ×2 (15:22)
[2018-08-31] MEDS ORDERED: MELATONIN 5 MG TABLETS PO PRN (15:22)
[2018-08-31] MEDS ORDERED: IBUPROFEN 400 MG TABLET (FP) PO PRN (15:22)
[2018-08-31] MEDS: chlordiazePOXIDE HCL 25 MG CAPSULE PO SCH ×2 (17:12→22:20)
[2018-08-31 17:31] LABS: HEMATOCRIT 37.4 % (35.4-49); HEMOGLOBIN 12.1 GM/dL (11.7-16.9); MCH 28.7 pg (25.7-33.7); MCHC 32.3 g/dl (32.0-35.9); MEAN CELL VOLUME 88.8 fl (80-96); MEAN PLT VOLUME 9.3 fl (7.5-11.1); PLATELET COUNT 323 K/MM3 (134-434); RBC 4.21 M/mm3 (4.00-5.60); RDW 14.5 % (11.9-15.9); WHITE BLOOD COUNT 9.3 K/mm3 (4.0-10.0)
[2018-08-31 17:57] LABS: ALBUMIN 3.9 g/dl (3.4-5.0); BILIRUBIN,TOTAL 0.3 mg/dL (0.2-1); BLOOD UREA NITROGEN 12.7 mg/dL (7-18); CALCIUM 9.5 mg/dL (8.5-10.1); CREATININE 1.2 mg/dL (0.55-1.3); TOT PROT 7.3 g/dl (6.4-8.2)
[2018-08-31 17:58] LABS: POTASSIUM 4.1 mmol/L (3.5-5.1)
[2018-08-31] MEDS: THIAMINE HCL 100 MG TABLET (FP) PO SCH (22:21)
[2018-09-01] MEDS: chlordiazePOXIDE HCL 25 MG CAPSULE PO SCH ×3 (06:02→18:39)
[2018-09-01] MEDS: PRENATAL VITAMINS W/ FOLIC ACID TABLET (FP) PO SCH (10:44)
[2018-09-01] MEDS: ASPIRIN 81 MG CHEWABLE TABLETS PO SCH (10:44)
--- NOTE | 2018-09-01 10:45 | PN ---
S CIWA - CIWA Score Nausea/Vomitin-No Nausea/No Vomiting Muscle Tremors: 2 Anxiety: 2 Agitation: 2 Paroxysmal Sweats: 3 Orientation: 0-Oriented Tacttile Disturbances: 0-None Auditory Disturbances: 0-None Visual Disturbances: 0-None Headache: 2-Mild CIWA-Ar Total Score: 11 S Progress Note (SOAP) Subjective: c/o anxiety, sweats, headache, and shakes. Objective: 09/01/18 10:44 Vital Signs 09/01/18 09/01/18 09/01/18 05:19 06:00 06:48 Temperature 97.9 F Pulse Rate 52 L Respiratory 18 18 18 Rate Blood Pressure 106/57 L Lab Results WBC 9.3 K/mm3 (4.0-10.0) 08/31/18 15:20 RBC 4.21 M/mm3 (4.00-5.60) 08/31/18 15:20 Hgb 12.1 GM/dL (11.7-16.9) 08/31/18 15:20 Hct 37.4 % (35.4-49) 08/31/18 15:20 MCV 88.8 fl (80-96) 08/31/18 15:20 MCHC 32.3 g/dl (32.0-35.9) 08/31/18 15:20 RDW 14.5 % (11.9-15.9) 08/31/18 15:20 Plt Count 323 K/MM3 (134-434) D 08/31/18 15:20 Sodium 144 mmol/L (136-145) 08/31/18 15:20 Potassium 4.1 mmol/L (3.5-5.1) 08/31/18 15:20 Chloride 109 mmol/L (98-107) H 08/31/18 15:20 Carbon Dioxide 30 mmol/L (21-32) 08/31/18 15:20 Anion Gap 5 MMOL/L (8-16) L 08/31/18 15:20 BUN 12.7 mg/dL (7-18) 08/31/18 15:20 Creatinine 1.2 mg/dL (0.55-1.3) 08/31/18 15:20 Random Glucose 92 mg/dL (74-106) 08/31/18 15:20 Calcium 9.5 mg/dL (8.5-10.1) 08/31/18 15:20 Labs noted. Assessment: 09/01/18 10:44 AOX3, in no acute distress Full ROM, ambulating in the unit. withdrawal symptoms. Plan: continue detox.
[2018-09-01] MEDS: NICOTINE 21 MG/24 HOURS TOPICAL PATCH TD SCH (10:46)
[2018-09-02] MEDS: chlordiazePOXIDE HCL 25 MG CAPSULE PO SCH ×3 (00:05→10:44)
[2018-09-02] MEDS: THIAMINE HCL 100 MG TABLET (FP) PO SCH ×2 (00:05→23:50)
[2018-09-02] MEDS: PRENATAL VITAMINS W/ FOLIC ACID TABLET (FP) PO SCH (10:44)
[2018-09-02] MEDS: ASPIRIN 81 MG CHEWABLE TABLETS PO SCH (10:44)
[2018-09-02] MEDS: NICOTINE 21 MG/24 HOURS TOPICAL PATCH TD SCH (10:44)
--- NOTE | 2018-09-02 16:11 | PN ---
[facility] CIWA - CIWA Score Nausea/Vomitin-Mild Nausea/No Vomiting Muscle Tremors: 2 Anxiety: 2 Agitation: 2 Paroxysmal Sweats: 3 Orientation: 0-Oriented Tacttile Disturbances: 0-None Auditory Disturbances: 0-None Visual Disturbances: 0-None Headache: 0-None Present CIWA-Ar Total Score: 10 [facility] Progress Note (SOAP) Subjective: Feels ok, symptoms controlled with medication. Request ensure. Objective: 09/02/18 16:10 Last Vital Signs Temp Pulse Resp BP Pulse Ox 97.9 F 59 L 18 120/73 09/02/18 14:26 09/02/18 14:26 09/02/18 14:26 09/02/18 14:26 Laboratory Tests 08/31/18 08/31/18 08/31/18 15:20 15:20 15:20 WBC 9.3 RBC 4.21 Hgb 12.1 Hct 37.4 MCV 88.8 MCH 28.7 MCHC 32.3 RDW 14.5 Plt Count 323 D MPV 9.3 Sodium 144 Potassium 4.1 Chloride 109 H Carbon Dioxide 30 Anion Gap 5 L BUN 12.7 Creatinine 1.2 Est GFR (CKD-EPI)AfAm 77.33 Est GFR (CKD-EPI)NonAf 66.72 Random Glucose 92 Calcium 9.5 Total Bilirubin 0.3 AST 21 ALT 22 Alkaline Phosphatase 77 Total Protein 7.3 Albumin 3.9 RPR Titer Nonreactive Labs reviewed Assessment: 09/02/18 16:11 Withdrawal symptoms Plan: Continue detox Encouraged PO water intake
[2018-09-02] MEDS: chlordiazePOXIDE HCL 10 MG CAPSULE PO SCH ×2 (19:21→23:50)
[2018-09-03] MEDS: chlordiazePOXIDE HCL 10 MG CAPSULE PO SCH ×2 (05:02→10:16)
[2018-09-03] MEDS: ASPIRIN 81 MG CHEWABLE TABLETS PO SCH (10:15)
[2018-09-03] MEDS: NICOTINE 21 MG/24 HOURS TOPICAL PATCH TD SCH (10:15)
[2018-09-03] MEDS: PRENATAL VITAMINS W/ FOLIC ACID TABLET (FP) PO SCH (10:16)
--- NOTE | 2018-09-03 12:17 | DS ---
[facility] Detox Discharge Summary Admission Date: 08/31/18 Discharge Date: 09/03/18 - History Present History: Alcohol Dependence, Cocaine Dependence - Physical Exam Results Vital Signs: Vital Signs Temperature 97.3 F L 09/03/18 09:23 Pulse Rate 89 09/03/18 09:23 Respiratory Rate 18 09/03/18 09:23 Blood Pressure 130/71 09/03/18 09:23 O2 Sat by Pulse Oximetry (%) - Treatment Hospital Course: Detox Protocol Followed, Detoxed Safely, Responded well, Discharged Condition Good, Rehab Referral Accepted - Medication Discharge Medications: Ambulatory Orders Aspirin [ASA -] 81 mg PO DAILY 04/25/17 - Diagnosis (1) Alcohol dependence with uncomplicated withdrawal Current Visit: Yes Status: Chronic (2) Weight loss Current Visit: Yes Status: Acute (3) Cocaine dependence, uncomplicated Current Visit: Yes Status: Chronic (4) Nicotine dependence Current Visit: Yes Status: Chronic Qualifiers: Nicotine product type: cigarettes Substance use status: uncomplicated Qualified Code(s): F17.210 - Nicotine dependence, cigarettes, uncomplicated - AMA Did Patient Leave Against Medical Advice: No (referred to [facility] inpatient rehab)
[2018-09-03] MEDS ORDERED: chlordiazePOXIDE HCL 10 MG CAPSULE PO SCH (17:00)
[2018-09-03 17:34] VITALS: BP 117/71; PULSE 61; TEMP 98.1
== END 2018-09-03 19:00 | disposition other institution (70) | DRG 774 ==
LOC: YASAS 12:48 → Y6N 15:20
PROVIDERS: ADMIT Surgery; ATTEND Surgery
PROC: HZ2ZZZZ Detoxification Services for Substance Abuse Treatment (ICD-10-PCS; principal; 2018-08-31)
DX: F10.230 Alcohol dependence with withdrawal, uncomplicated (principal); F14.20 Cocaine dependence, uncomplicated; F17.210 Nicotine dependence, cigarettes, uncomplicated; R63.4 Abnormal weight loss
CPT/HCPCS: 36415; 80053; 85027; 86593

== ENCOUNTER 2018-09-03 19:09 | Inpatient (IN) | payer OTHER ==
[2018-09-03] MEDS ORDERED: MELATONIN 5 MG TABLETS PO PRN (22:00)
[2018-09-03] MEDS ORDERED: ACETAMINOPHEN 325 MG TABLET (FP) PO PRN (23:59)
[2018-09-03] MEDS ORDERED: hydrOXYzine PAMOATE 50 MG CAPSULE (FP) PO PRN (23:59)
[2018-09-03] MEDS ORDERED: MENTHOL/PHENOL 1 EACH UD MM PRN (23:59)
[2018-09-03] MEDS ORDERED: MAG HYDROX/AL HYDROX/SIMETH 30 ML UNIT-DOSE CUP PO PRN (23:59)
[2018-09-03] MEDS ORDERED: MAGNESIUM HYDROX 2400MG/30ML ORAL SUSPENSION 30 ML CUP PO PRN (23:59)
[2018-09-03] MEDS ORDERED: P-EPHED 60MG/TRIPROLIDI 2.5MG TABLET PO PRN (23:59)
[2018-09-03] MEDS ORDERED: LOPERAMIDE HCL 2 MG CAPSULE PO PRN (23:59)
[2018-09-03] MEDS ORDERED: guaiFENesin 200 MG/10 ML 10 ML UNIT-DOSE CUPS PO PRN (23:59)
[2018-09-03] MEDS ORDERED: MAGNESIUM CITRATE 300 ML BOTTLE PO PRN (23:59)
[2018-09-03] MEDS ORDERED: IBUPROFEN 400 MG TABLET (FP) PO PRN (23:59)
[2018-09-03] MEDS ORDERED: NICOTINE POLACRILEX 4 MG GUM BUC PRN (23:59)
--- NOTE | 2018-09-03 23:59 | HP ---
[facility] Rehab Assess/Revision - Admission History Admitted to Rehab from: [facility] Date of Admission to Rehab: 09/03/2018 - Vital signs Vital Signs: Vital Signs Period Temp Pulse Resp BP Sys/Mcdonough Pulse Ox Last 24 Hr 98.5 F 61 18 119/76 - Findings Detox History & Physical reviewed: Yes Concur with findings: Yes Comments/Additional Findings: Patient completed detox for alcohol and anxiolytic use disorder. patient w/ co-occurring use of cocaine and nicotine. Inpatient Rehab Admission - Rehab Decision to Admit Inpatient rehab admission?: Yes - Initial Determination Are CD services needed?: Yes Free of communicable disease: Yes Not in need of hospitalization: Yes - Rehab Admission Criteria Previous failed treatment: Yes Poor recovery environment: Yes Comorbidities: Yes Lacks judgement: No Patient is meeting Inpatient Rehab admission criteria:: Yes
[2018-09-04] MEDS: PRENATAL VITAMINS W/ FOLIC ACID TABLET (FP) PO SCH (10:06)
[2018-09-04] MEDS: NICOTINE 21 MG/24 HOURS TOPICAL PATCH TD SCH (10:06)
[2018-09-04] MEDS: ASPIRIN 81 MG CHEWABLE TABLETS PO SCH (10:06)
[2018-09-04] MEDS ORDERED: THIAMINE HCL 100 MG TABLET (FP) PO SCH (22:00)
[2018-09-05 06:33] VITALS: BP 125/75; PULSE 61; TEMP 97.7
[2018-09-05] MEDS: PRENATAL VITAMINS W/ FOLIC ACID TABLET (FP) PO SCH (10:00)
[2018-09-05] MEDS: NICOTINE 21 MG/24 HOURS TOPICAL PATCH TD SCH (10:00)
[2018-09-05] MEDS: ASPIRIN 81 MG CHEWABLE TABLETS PO SCH (10:00)
--- NOTE | 2018-09-05 11:31 | PN ---
[facility] Progress Note (SOAP) Subjective: Patient leaving for personal reasons. He has met with his counselor. Objective: A+O x3, no neurological deficits noted. PATIENT REFUSING ANY FURTHER PHYSICAL EXAMINATION. 09/05/18 11:27 Vital Signs (72 hours) 09/03/18 09/04/18 09/04/18 19:42 00:30 03:30 Temperature 98.5 F Pulse Rate 61 Respiratory 18 20 18 Rate Blood Pressure 119/76 09/04/18 09/05/18 09/05/18 06:47 00:30 03:30 Temperature 97.5 F L Pulse Rate 60 Respiratory 18 18 18 Rate Blood Pressure 116/69 09/05/18 06:32 Temperature 97.7 F Pulse Rate 61 Respiratory 18 Rate Blood Pressure 125/75 Assessment: Based on vital signs and cursory visual assessment of patient, he is medically stable for discharge. Patient has refused a physical exam. 09/05/18 11:29 Plan: Patient will return home. He does not have a discharge plan or a primary care provider. He did not want to discuss with this provider any suggestions for primary care or aftercare. He did not have any prescriptions that needed to be transmitted.
== END 2018-09-05 11:30 | disposition left against medical advice (07) | DRG 770 ==
LOC: YASAS 19:09 → Y5N 19:10
PROVIDERS: ADMIT Neuromusculoskeletal Medicine & OMM; ATTEND Neuromusculoskeletal Medicine & OMM
PROC: HZ42ZZZ Group Counseling for Substance Abuse Treatment, Cognitive-Behavioral (ICD-10-PCS; principal; 2018-09-03)
DX: F10.20 Alcohol dependence, uncomplicated (principal); F13.20 Sedative, hypnotic or anxiolytic dependence, uncomplicated; F14.20 Cocaine dependence, uncomplicated; F17.210 Nicotine dependence, cigarettes, uncomplicated; R63.4 Abnormal weight loss; Z68.25 Body mass index [BMI] 25.0-25.9, adult

== ENCOUNTER 2018-10-13 11:00 | Inpatient (IN) | payer OTHER ==
[2018-10-13 15:53] VITALS: BMI 29.0
--- NOTE | 2018-10-13 18:35 | HP ---
CIWA Score Nausea/Vomitin Muscle Tremors: 3 Anxiety: 3 Agitation: 3 Paroxysmal Sweats: 1-Minimal Palms Moist Orientation: 0-Oriented Tacttile Disturbances: 1-Very Mild Itch/Numbness Auditory Disturbances: 0-None Visual Disturbances: 0-None Headache: 2-Mild CIWA-Ar Total Score: 15 - Admission Criteria OASAS Guidelines: Admission for Medically Managed Detox: Requires at least one of the followin. CIWA greater than 12 2. Seizures within the past 24 hours 3. Delirium tremens within the past 24 hours 4. Hallucinations within the past 24 hours 5. Acute intervention needed for co occurring medical disorder 6. Acute intervention needed for co occurring psychiatric disorder 7. Severe withdrawal that cannot be handled at a lower level of care (continued vomiting, continued diarrhea, abnormal vital signs) requiring intravenous medication and/or fluids 8. 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 2 years 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 Exam Limitations: No Limitations - Ebola screening Have you traveled outside of the country in the last 21 days: No (N) Have you had contact with anyone from an Ebola affected area: No Do you have a fever: No - Review of Systems Constitutional: Loss of Appetite, Malaise, Night Sweats, Changes in sleep, Weakness EENT: reports: Nose Congestion Respiratory: reports: No Symptoms reported Cardiac: reports: No Symptoms Reported GI: reports: Nausea, Poor Appetite, Abdominal cramping : reports: No Symptoms Reported Musculoskeletal: reports: Back Pain, Muscle Pain Integumentary: reports: Dryness Neuro: reports: Headache, Tremors Endocrine: reports: No Symptoms Reported Hematology: reports: No Symptoms Reported Psychiatric: reports: No Sypmtoms Reported, Judgement Intact, Mood/Affect Appropiate, Orientated x3 Other Systems: Reviewed and Negative Patient History - Patient Medical History Hx Anemia: No Hx Asthma: No Hx Chronic Obstructive Pulmonary Disease (COPD): No Hx Cancer: No Hx Cardiac Disorders: No Hx Congestive Heart Failure: No Hx Hypertension: No Hx Hypercholesterolemia: No Hx Pacemaker: No HX Cerebrovascular Accident: No Hx Seizures: No Hx Dementia: No Hx Diabetes: No Hx Gastrointestinal Disorders: No Hx Liver Disease: No Hx Genitourinary Disorders: No Hx Sexually Transmitted Disorders: No Hx Renal Disease (ESRD): No Hx Thyroid Disease: No Hx Human Immunodeficiency Virus (HIV): No (08/22 negative) Hx Hepatitis C: No (denies) Hx Depression: No Hx Suicide Attempt: No Hx Bipolar Disorder: No Hx Schizophrenia: No Other Medical History: no suicidal,no homicidal - Patient Surgical History Past Surgical History: No Hx Neurologic Surgery: No Hx Cataract Extraction: No Hx Cardiac Surgery: No Hx Lung Surgery: No Hx Breast Surgery: No Hx Breast Biopsy: No Hx Abdominal Surgery: No Hx Appendectomy: No Hx Cholecystectomy: No Hx Genitourinary Surgery: No Hx Section: No Hx Orthopedic Surgery: No Anesthesia Reaction: No - PPD History Previous Implant?: Yes Documented Results: Negative w/proof Implanted On Prior R Admission?: Yes Date: 03/18/18 Results: 0 mm PPD to be Administered?: No - Smoking Cessation Smoking history: Current every day smoker Have you smoked in the past 12 months: Yes Aproximately how many cigarettes per day: 10 Cigars Per Day: 0 Hx Chewing Tobacco Use: No Initiated information on smoking cessation: Yes 'Breaking Loose' booklet given: 10/13/18 - Substance & Tx. History Hx Alcohol Use: Yes Hx Substance Use: Yes Substance Use Type: Alcohol, Cocaine, Tranquilizers Hx Substance Use Treatment: Yes ([facility] 08/31/18 to 09/03/18,rehab 09/03/18 to 05/22) - Substances abused Alcohol Substance route: Oral Frequency: Daily Amount used: 2 pints vodka Age of first use: 16 Date of last use: 10/12/18 Alprazolam (Xanax) Substance route: Oral Frequency: Daily Amount used: 6mg/daily Age of first use: 41 Date of last use: 10/12/18 Cocaine Substance route: Inhalation Frequency: Daily Amount used: $50 Age of first use: 22 Date of last use: 10/12/18 Family Disease History - Family Disease History Family Disease History: Heart Disease: Father (, [place]), Other: Grandparent (grandfather - etoh), Father, Mother ( 'natural causes'), Sister (one -healthy), Son (one - healthy) Admission Physical Exam [facility] - Vital Signs Vital Signs: Vital Signs - 24 hr 10/13/18 15:47 Temperature 97.4 F L Pulse Rate 74 Respiratory 18 Rate Blood Pressure 120/71 - Physical General Appearance: Yes: Moderate Distress, Tremorous, Irritable, Sweating, Anxious HEENTM: Yes: Normal ENT Inspection, CLIFFORD, Pharynx Normal Respiratory: Yes: Lungs Clear, Normal Breath Sounds, No Respiratory Distress Neck: Yes: Within Normal Limits, Supple, Trachea in good position Breast: Yes: Within Normal Limits Cardiology: Yes: Within Normal Limits, Regular Rhythm, Regular Rate, S1, S2 Abdominal: Yes: Within Normal Limits, Normal Bowel Sounds, Non Tender, Flat, Soft Genitourinary: Yes: Within Normal Limits Back: Yes: Muscle Spasm Musculoskeletal: Yes: Back pain, Muscle Pain Extremities: Yes: Tremors Neurological: Yes: tie hacker II-XII NML intact, Fully Oriented, Alert, Motor Strength 5/5 Integumentary: Yes: Dry Lymphatic: Yes: Within Normal Limits - Diagnostic (1) Alcohol dependence with uncomplicated withdrawal Current Visit: No Status: Chronic (2) Cocaine dependence, uncomplicated Current Visit: No Status: Chronic (3) Nicotine dependence Current Visit: No Status: Chronic Qualifiers: Nicotine product type: cigarettes Substance use status: uncomplicated Qualified Code(s): F17.210 - Nicotine dependence, cigarettes, uncomplicated (4) Sedative, hypnotic or anxiolytic dependence with withdrawal, uncomplicated Current Visit: Yes Status: Acute Cleared for Admission [facility] - Detox or Rehab [facility] Level of Care: Medically Managed (patient reuested ativan regimen) Breathalyzer - Breathalyzer Breathalyzer: 0 Urine Drug Screen - Test Device Lot number: [id number] Expiration date: 07/03/20 - Control Is test valid?: Yes - Results Drug screen NEGATIVE: No Urine drug screen results: ELYSIA-Cocaine, BZO-Benzodiazepines Inpatient Rehab Admission - Rehab Decision to Admit Inpatient rehab admission?: No
[2018-10-13] MEDS ORDERED: LORazepam 1 MG TABLET PO PRN (18:47)
[2018-10-13] MEDS ORDERED: NICOTINE POLACRILEX 2 MG GUM BUC PRN (18:47)
[2018-10-13] MEDS ORDERED: hydrOXYzine PAMOATE 25 MG CAPSULE (FP) PO PRN (18:47)
[2018-10-13] MEDS ORDERED: IBUPROFEN 400 MG TABLET (FP) PO PRN (18:47)
[2018-10-13] MEDS ORDERED: MAGNESIUM HYDROX 2400MG/30ML ORAL SUSPENSION 30 ML CUP PO PRN (18:47)
[2018-10-13] MEDS ORDERED: MELATONIN 5 MG TABLETS PO PRN (18:47)
[2018-10-13] MEDS ORDERED: MAGNESIUM CITRATE 300 ML BOTTLE PO PRN (18:47)
[2018-10-13] MEDS ORDERED: ACETAMINOPHEN 325 MG TABLET (FP) PO PRN ×2 (18:47)
[2018-10-13] MEDS ORDERED: METHOCARBAMOL 500 MG TABLET PO PRN (18:47)
[2018-10-13] MEDS ORDERED: MAG HYDROX/AL HYDROX/SIMETH 30 ML UNIT-DOSE CUP PO PRN (18:47)
[2018-10-13] MEDS ORDERED: MENTHOL/PHENOL 1 EACH UD MM PRN (18:47)
[2018-10-13] MEDS ORDERED: BISMUTH SUBSALICYLATE 524 MG/30 ML UD PO PRN (18:47)
[2018-10-13] MEDS: LORazepam 2 MG TABLET PO SCH (22:48)
[2018-10-13] MEDS: THIAMINE HCL 100 MG TABLET (FP) PO SCH (22:48)
[2018-10-14] MEDS: LORazepam 2 MG TABLET PO SCH ×4 (06:07→22:46)
[2018-10-14 09:59] LABS: HEMATOCRIT 38.4 % (35.4-49); HEMOGLOBIN 12.4 GM/dL (11.7-16.9); MCH 28.7 pg (25.7-33.7); MCHC 32.3 g/dl (32.0-35.9); MEAN CELL VOLUME 88.9 fl (80-96); MEAN PLT VOLUME 10.3 fl (7.5-11.1); PLATELET COUNT 213 K/MM3 (134-434); RBC 4.32 M/mm3 (4.00-5.60); RDW 13.7 % (11.9-15.9); WHITE BLOOD COUNT 7.2 K/mm3 (4.0-10.0)
[2018-10-14 10:06] LABS: ALBUMIN 3.6 g/dl (3.4-5.0); BILIRUBIN,TOTAL 0.4 mg/dL (0.2-1); BLOOD UREA NITROGEN 15.8 mg/dL (7-18); CREATININE 1.1 mg/dL (0.55-1.3); POTASSIUM 4.3 mmol/L (3.5-5.1); TOT PROT 6.8 g/dl (6.4-8.2)
[2018-10-14] MEDS: PRENATAL VITAMINS W/ FOLIC ACID TABLET (FP) PO SCH (10:48)
--- NOTE | 2018-10-14 11:41 | PN ---
[facility] CIWA - CIWA Score Nausea/Vomitin-No Nausea/No Vomiting Muscle Tremors: 3 Anxiety: 2 Agitation: 2 Paroxysmal Sweats: 2 Orientation: 0-Oriented Tacttile Disturbances: 1-Very Mild Itch/Numbness Auditory Disturbances: 0-None Visual Disturbances: 0-None Headache: 1-Very Mild CIWA-Ar Total Score: 11 S Progress Note (SOAP) Subjective: 58 years old male admitted on 10/13/18 for acute alcohol and benzo withdrawal sx management doing well with ativan detox protocol less tremor and anxious social with peers in day room Objective: 10/14/18 11:39 Vital Signs Temperature 98.4 F 10/14/18 09:42 Pulse Rate 69 10/14/18 09:42 Respiratory Rate 18 10/14/18 09:42 Blood Pressure 117/78 10/14/18 09:42 O2 Sat by Pulse Oximetry (%) Laboratory Last Values WBC 7.2 K/mm3 (4.0-10.0) 10/14/18 08:00 RBC 4.32 M/mm3 (4.00-5.60) 10/14/18 08:00 Hgb 12.4 GM/dL (11.7-16.9) 10/14/18 08:00 Hct 38.4 % (35.4-49) 10/14/18 08:00 MCV 88.9 fl (80-96) 10/14/18 08:00 MCH 28.7 pg (25.7-33.7) 10/14/18 08:00 MCHC 32.3 g/dl (32.0-35.9) 10/14/18 08:00 RDW 13.7 % (11.9-15.9) 10/14/18 08:00 Plt Count 213 K/MM3 (134-434) D 10/14/18 08:00 MPV 10.3 fl (7.5-11.1) D 10/14/18 08:00 Sodium 146 mmol/L (136-145) H 10/14/18 08:00 Potassium 4.3 mmol/L (3.5-5.1) 10/14/18 08:00 Chloride 112 mmol/L (98-107) H 10/14/18 08:00 Carbon Dioxide 27 mmol/L (21-32) 10/14/18 08:00 Anion Gap 7 MMOL/L (8-16) L 10/14/18 08:00 BUN 15.8 mg/dL (7-18) 10/14/18 08:00 Creatinine 1.1 mg/dL (0.55-1.3) 10/14/18 08:00 Est GFR (CKD-EPI)AfAm 85.91 10/14/18 08:00 Est GFR (CKD-EPI)NonAf 74.12 10/14/18 08:00 Random Glucose 106 mg/dL (74-106) 10/14/18 08:00 Calcium 9.0 mg/dL (8.5-10.1) 10/14/18 08:00 Total Bilirubin 0.4 mg/dL (0.2-1) 10/14/18 08:00 AST 28 U/L (15-37) 10/14/18 08:00 ALT 45 U/L (13-61) 10/14/18 08:00 Alkaline Phosphatase 61 U/L (45-117) 10/14/18 08:00 Total Protein 6.8 g/dl (6.4-8.2) 10/14/18 08:00 Albumin 3.6 g/dl (3.4-5.0) 10/14/18 08:00 lab noted Assessment: 10/14/18 11:40 alcohol and benzo withdrawal sx Plan: continue ativan detox regimen
[2018-10-14] MEDS: THIAMINE HCL 100 MG TABLET (FP) PO SCH (22:46)
[2018-10-15] MEDS: LORazepam 1 MG TABLET PO SCH ×2 (05:24→10:42)
[2018-10-15 09:30] VITALS: BP 120/66; PULSE 73; TEMP 96.6
--- NOTE | 2018-10-15 09:50 | DS ---
[facility] Detox Discharge Summary Admission Date: 10/13/18 Discharge Date: 10/15/18 - History Present History: Alcohol Dependence, Sedative Dependence Additional Comments: 58 years old male admitted on 10/13/18 for acute alcohol and benzo withdrawal sx management having emergency at home prefers to return home to solve the emergency situation reporting feeling better doing well with libirum detox protocol no complication throughout the detox stay alert oriented x 3 speech clearly coherently steady gait denies dizziness no shortness of breath ciwa = 4 Pertinent Past History: external medication reviewed that the patient is taking Depakote strong recommend the patient bringing in medication list and lab report to primary care provider for follow up discuss risks of seizure from benzo sudden stop encourage the patient continue depakote as prescribed - Physical Exam Results Vital Signs: Vital Signs Temperature 96.6 F L 10/15/18 09:30 Pulse Rate 73 10/15/18 09:30 Respiratory Rate 18 10/15/18 09:30 Blood Pressure 120/66 10/15/18 09:30 O2 Sat by Pulse Oximetry (%) Pertinent Admission Physical Exam Findings: alcohol and benzo withdrawal sx Laboratory Last Values WBC 7.2 K/mm3 (4.0-10.0) 10/14/18 08:00 RBC 4.32 M/mm3 (4.00-5.60) 10/14/18 08:00 Hgb 12.4 GM/dL (11.7-16.9) 10/14/18 08:00 Hct 38.4 % (35.4-49) 10/14/18 08:00 MCV 88.9 fl (80-96) 10/14/18 08:00 MCH 28.7 pg (25.7-33.7) 10/14/18 08:00 MCHC 32.3 g/dl (32.0-35.9) 10/14/18 08:00 RDW 13.7 % (11.9-15.9) 10/14/18 08:00 Plt Count 213 K/MM3 (134-434) D 10/14/18 08:00 MPV 10.3 fl (7.5-11.1) D 10/14/18 08:00 Sodium 146 mmol/L (136-145) H 10/14/18 08:00 Potassium 4.3 mmol/L (3.5-5.1) 10/14/18 08:00 Chloride 112 mmol/L (98-107) H 10/14/18 08:00 Carbon Dioxide 27 mmol/L (21-32) 10/14/18 08:00 Anion Gap 7 MMOL/L (8-16) L 10/14/18 08:00 BUN 15.8 mg/dL (7-18) 10/14/18 08:00 Creatinine 1.1 mg/dL (0.55-1.3) 10/14/18 08:00 Est GFR (CKD-EPI)AfAm 85.91 10/14/18 08:00 Est GFR (CKD-EPI)NonAf 74.12 10/14/18 08:00 Random Glucose 106 mg/dL (74-106) 10/14/18 08:00 Calcium 9.0 mg/dL (8.5-10.1) 10/14/18 08:00 Total Bilirubin 0.4 mg/dL (0.2-1) 10/14/18 08:00 AST 28 U/L (15-37) 10/14/18 08:00 ALT 45 U/L (13-61) 10/14/18 08:00 Alkaline Phosphatase 61 U/L (45-117) 10/14/18 08:00 Total Protein 6.8 g/dl (6.4-8.2) 10/14/18 08:00 Albumin 3.6 g/dl (3.4-5.0) 10/14/18 08:00 RPR Titer Nonreactive (NONREACTIVE) 10/14/18 08:00 HIV 1&2 Antibody Screen Cancelled 10/14/18 08:00 HIV P24 Antigen Cancelled 10/14/18 08:00 lab noted Laboratory Last Values Vital Signs Temperature 96.6 F L 10/15/18 09:30 Pulse Rate 73 10/15/18 09:30 Respiratory Rate 18 10/15/18 09:30 Blood Pressure 120/66 10/15/18 09:30 O2 Sat by Pulse Oximetry (%) - Treatment Hospital Course: Detox Protocol Followed, Detoxed Safely, Responded well, Discharged Condition Good, Rehab Referral Accepted Patient has Accepted a Rehab Referral to: community support approach - Medication Discharge Medications: Ambulatory Orders Aspirin [ASA -] 81 mg PO DAILY 04/25/17 - Diagnosis (1) Nicotine dependence Current Visit: Yes Status: Acute Qualifiers: Nicotine product type: cigarettes Substance use status: in withdrawal Qualified Code(s): F17.213 - Nicotine dependence, cigarettes, with withdrawal (2) Alcohol dependence with uncomplicated withdrawal Current Visit: Yes Status: Acute (3) Sedative, hypnotic or anxiolytic dependence with withdrawal, uncomplicated Current Visit: Yes Status: Acute - AMA Did Patient Leave Against Medical Advice: No CIWA Score - CIWA Score Nausea/Vomitin-No Nausea/No Vomiting Muscle Tremors: 1-None Visible, but Leeper Anxiety: 1-Mildly Anxious Agitation: 1-Slight > Activity Paroxysmal Sweats: No Perspiration Orientation: 0-Oriented Tacttile Disturbances: 0-None Auditory Disturbances: 0-None Visual Disturbances: 0-None Headache: 0-None Present CIWA-Ar Total Score: 3
[2018-10-15] MEDS: PRENATAL VITAMINS W/ FOLIC ACID TABLET (FP) PO SCH (10:42)
[2018-10-16] MEDS ORDERED: LORazepam 0.5 MG TABLET PO PRN
[2018-10-16] MEDS ORDERED: LORazepam 0.5 MG TABLET PO SCH (05:00)
[2018-10-17] MEDS ORDERED: LORazepam 0.5 MG TABLET PO ONE (05:00)
== END 2018-10-15 10:05 | disposition home or self-care (01) | DRG 774 ==
LOC: YASAS 11:00 → Y3N 18:43
PROVIDERS: ADMIT Surgery; ATTEND Surgery
PROC: HZ2ZZZZ Detoxification Services for Substance Abuse Treatment (ICD-10-PCS; principal; 2018-10-13)
DX: F10.230 Alcohol dependence with withdrawal, uncomplicated (principal); F13.230 Sedative, hypnotic or anxiolytic dependence with withdrawal, uncomplicated; F14.20 Cocaine dependence, uncomplicated; F17.213 Nicotine dependence, cigarettes, with withdrawal
CPT/HCPCS: 36415; 80053; 85027; 86593; 87389

== ENCOUNTER 2019-01-30 09:17 | Inpatient (IN) | payer OTHER ==
[2019-01-30 10:44] VITALS: BMI 26.7
--- NOTE | 2019-01-30 11:07 | HP ---
CIWA Score Nausea/Vomitin Muscle Tremors: 3 Anxiety: 3 Agitation: 3 Paroxysmal Sweats: 4-Forehead w/Sweat Beads Orientation: 0-Oriented Tacttile Disturbances: 0-None Auditory Disturbances: 0-None Visual Disturbances: 0-None Headache: 6-Very Severe CIWA-Ar Total Score: 22 - Admission Criteria OASAS Guidelines: Admission for Medically Managed Detox: Requires at least one of the followin. CIWA greater than 12 2. Seizures within the past 24 hours 3. Delirium tremens within the past 24 hours 4. Hallucinations within the past 24 hours 5. Acute intervention needed for co occurring medical disorder 6. Acute intervention needed for co occurring psychiatric disorder 7. Severe withdrawal that cannot be handled at a lower level of care (continued vomiting, continued diarrhea, abnormal vital signs) requiring intravenous medication and/or fluids 8. Admitting History and Physical - Admission Chief Complaint: "I want to get my life together." History of Present Illness: 58 year old with history of alcohol dependence with withdrawal, cocaine use disorder, and benzodiazepine use disorder. He is drinking 3 pints of vodka daily, last drink yesterday. He is using $50 of cocaine daily, last used yesterday. He is using Xanax Daily 3 tabs of 2mg three times per week, last used yesterday. He smokes 1/2 ppd for 40 years. not ever successful in cessation. PMH: None PSurg: None Homeless and in half-way system He has poor support systems. No family involvement. 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 Source: Patient - Past Surgical History Past Surgical History: Yes: None - Smoking History Smoking history: Current every day smoker Have you smoked in the past 12 months: Yes Aproximately how many cigarettes per day: 10 - Alcohol/Substance Use Hx Alcohol Use: Yes (3 pints of vodka daily) Number of Drinks Daily: 10 History of Substance Use: reports: Cocaine, Tranquilizers - Social History Usual Living Arrangement: Yes: Alone Do you think of yourself as: Straight/Heterosexual ADL: Independent Occupation: unemployed History of Recent Travel: No Admission ROS [facility] Allergies/Adverse Reactions: Allergies Allergy/AdvReac Type Severity Reaction Status Date / Time No Known Drug Allergies Allergy Verified 01/30/19 10:37 - Ebola screening Have you traveled outside of the country in the last 21 days: No Have you had contact with anyone from an Ebola affected area: No Have you been sick,other than usual withdrawal symptoms: No Do you have a fever: No - Review of Systems Constitutional: Chills, Diaphoresis EENT: reports: No Symptoms Reported Respiratory: reports: No Symptoms reported Cardiac: reports: No Symptoms Reported GI: reports: Nausea, Vomiting, Abdominal cramping : reports: No Symptoms Reported Musculoskeletal: reports: No Symptoms Reported Integumentary: reports: No Symptoms Reported Neuro: reports: No Symptoms reported Endocrine: reports: No Symptoms Reported Hematology: reports: No Symptoms Reported Psychiatric: reports: Judgement Intact, Mood/Affect Appropiate, Orientated x3 Other Systems: Reviewed and Negative Patient History - Patient Medical History Hx Anemia: No Hx Asthma: No Hx Chronic Obstructive Pulmonary Disease (COPD): No Hx Cancer: No Hx Cardiac Disorders: No Hx Congestive Heart Failure: No Hx Hypertension: No Hx Hypercholesterolemia: No Hx Pacemaker: No HX Cerebrovascular Accident: No Hx Seizures: No Hx Dementia: No Hx Diabetes: No Hx Gastrointestinal Disorders: No Hx Liver Disease: No Hx Genitourinary Disorders: No Hx Sexually Transmitted Disorders: No Hx Renal Disease (ESRD): No Hx Thyroid Disease: No Hx Human Immunodeficiency Virus (HIV): No (08/22 negative) Hx Hepatitis C: No (denies) Hx Depression: No Hx Suicide Attempt: No Hx Bipolar Disorder: No Hx Schizophrenia: No - Patient Surgical History Past Surgical History: No Hx Neurologic Surgery: No Hx Cataract Extraction: No Hx Cardiac Surgery: No Hx Lung Surgery: No Hx Breast Surgery: No Hx Breast Biopsy: No Hx Abdominal Surgery: No Hx Appendectomy: No Hx Cholecystectomy: No Hx Genitourinary Surgery: No Hx Section: No Hx Orthopedic Surgery: No Anesthesia Reaction: No - PPD History Previous Implant?: Yes Documented Results: Negative w/proof Implanted On Prior [facility] Admission?: Yes Date: 03/18/18 Results: 0 mm PPD to be Administered?: No - Smoking Cessation Smoking history: Current every day smoker Have you smoked in the past 12 months: Yes Aproximately how many cigarettes per day: 10 Cigars Per Day: 0 Hx Chewing Tobacco Use: No Initiated information on smoking cessation: Yes 'Breaking Loose' booklet given: 01/30/19 - Substances abused Alcohol Substance route: Oral Frequency: Daily Amount used: 2 pints vodka Age of first use: 16 Date of last use: 01/29/19 Alprazolam (Xanax) Substance route: Oral Frequency: Daily Amount used: 6mg/daily Age of first use: 41 Date of last use: 01/29/19 Cocaine Substance route: Inhalation Frequency: Daily Amount used: $50 Age of first use: 22 Date of last use: 01/29/19 Admission Physical Exam [facility] - Vital Signs Vital Signs: Vital Signs - 24 hr 01/30/19 01/30/19 10:36 10:51 Temperature 98.2 F 98.2 F Pulse Rate 87 87 Respiratory 16 16 Rate Blood Pressure 128/69 128/69 - Physical General Appearance: Yes: Mild Distress, Sweating, Anxious HEENTM: Yes: EOMI, Hearing grossly Normal, Normal ENT Inspection, Normocephalic , Normal Voice, CLIFFORD, Pharynx Normal, Tm's normal Respiratory: Yes: Chest Non-Tender, Lungs Clear, Normal Breath Sounds, No Respiratory Distress, No Accessory Muscle Use Neck: Yes: No masses,lesions,Nodules Breast: Yes: Within Normal Limits Cardiology: Yes: Regular Rhythm, Regular Rate, S1, S2 Abdominal: Yes: Non Tender, Flat, Soft, Increased Bowel Sounds Genitourinary: Yes: Within Normal Limits Back: Yes: Normal Inspection Musculoskeletal: Yes: full range of Motion, Gait Steady Extremities: Yes: Normal Capillary Refill, Normal Inspection, Normal Range of Motion, Non-Tender 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, Fully Oriented, Alert, Motor Strength 5/5, Normal Mood/Affect, Normal Response Integumentary: Yes: Normal Color, Warm Lymphatic: Yes: Within Normal Limits - Diagnostic (1) Alcohol dependence with uncomplicated withdrawal Current Visit: Yes Status: Acute (2) Nicotine dependence Current Visit: Yes Status: Acute Qualifiers: Nicotine product type: cigarettes Substance use status: in withdrawal Qualified Code(s): F17.213 - Nicotine dependence, cigarettes, with withdrawal (3) Sedative, hypnotic or anxiolytic dependence with withdrawal, uncomplicated Current Visit: Yes Status: Acute (4) Weight loss Current Visit: Yes Status: Acute (5) Cocaine dependence, uncomplicated Current Visit: Yes Status: Chronic Cleared for Admission [facility] - Detox or Rehab [facility] Level of Care: Medically Managed Detox Regimen/Protocol: Not Applicable (ativan detox protocol) Screened but not Admitted - Documentation of Visit Screened but not Admitted: No Breathalyzer - Breathalyzer Breathalyzer: 0 Urine Drug Screen - Test Device Lot number: [id number] Expiration date: 10/03/20 - Control Is test valid?: Yes - Results Drug screen NEGATIVE: No Urine drug screen results: ELYSIA-Cocaine Inpatient Rehab Admission - Rehab Decision to Admit Inpatient rehab admission?: No
[2019-01-30] MEDS ORDERED: MENTHOL/PHENOL 1 EACH UD MM PRN (11:13)
[2019-01-30] MEDS ORDERED: MAG HYDROX/AL HYDROX/SIMETH 30 ML UNIT-DOSE CUP PO PRN (11:13)
[2019-01-30] MEDS ORDERED: METHOCARBAMOL 500 MG TABLET PO PRN (11:13)
[2019-01-30] MEDS ORDERED: ACETAMINOPHEN 325 MG TABLET (FP) PO PRN ×2 (11:13)
[2019-01-30] MEDS ORDERED: IBUPROFEN 400 MG TABLET (FP) PO PRN (11:13)
[2019-01-30] MEDS ORDERED: LORazepam 1 MG TABLET PO PRN (11:13)
[2019-01-30] MEDS ORDERED: MAGNESIUM CITRATE 300 ML BOTTLE PO PRN (11:13)
[2019-01-30] MEDS ORDERED: MELATONIN 5 MG TABLETS PO PRN (11:13)
[2019-01-30] MEDS ORDERED: hydrOXYzine PAMOATE 25 MG CAPSULE (FP) PO PRN (11:13)
[2019-01-30] MEDS ORDERED: BISMUTH SUBSALICYLATE 262 MG/15 ML BTL PO PRN (11:13)
[2019-01-30] MEDS ORDERED: MAGNESIUM HYDROX 2400MG/30ML ORAL SUSPENSION 30 ML CUP PO PRN (11:13)
[2019-01-30] MEDS: LORazepam 2 MG TABLET PO SCH ×3 (12:37→22:55)
[2019-01-30 15:13] LABS: HEMATOCRIT 36.2 % (35.4-49); HEMOGLOBIN 11.8 GM/dL (11.7-16.9); MCH 28.7 pg (25.7-33.7); MCHC 32.7 g/dl (32.0-35.9); MEAN CELL VOLUME 87.6 fl (80-96); MEAN PLT VOLUME 9.4 fl (7.5-11.1); PLATELET COUNT 206 K/MM3 (134-434); RBC 4.13 M/mm3 (4.00-5.60); RDW 14.3 % (11.9-15.9); WHITE BLOOD COUNT 7.6 K/mm3 (4.0-10.0)
[2019-01-30 15:15] LABS: ALBUMIN 3.8 g/dl (3.4-5.0); BILIRUBIN,TOTAL 0.3 mg/dL (0.2-1); BLOOD UREA NITROGEN 17.4 mg/dL (7-18); CREATININE 1.1 mg/dL (0.55-1.3); TOT PROT 6.6 g/dl (6.4-8.2)
[2019-01-30] MEDS: THIAMINE HCL 100 MG TABLET (FP) PO SCH (22:55)
[2019-01-31] MEDS: LORazepam 2 MG TABLET PO SCH ×4 (05:26→23:16)
[2019-01-31] MEDS ORDERED: ASPIRIN 81 MG CHEWABLE TABLETS PO SCH (10:00)
[2019-01-31] MEDS ORDERED: PRENATAL VITAMINS W/ FOLIC ACID TABLET (FP) PO SCH (10:00)
[2019-01-31] MEDS ORDERED: NICOTINE 14 MG/24 HOURS TOPICAL PATCH TD SCH (10:00)
--- NOTE | 2019-01-31 10:29 | PN ---
S CIWA - CIWA Score Nausea/Vomitin-No Nausea/No Vomiting Muscle Tremors: 3 Anxiety: 3 Agitation: 4-Moderately Restless Paroxysmal Sweats: 3 Orientation: 0-Oriented Tacttile Disturbances: 0-None Auditory Disturbances: 0-None Visual Disturbances: 0-None Headache: 0-None Present CIWA-Ar Total Score: 13 [facility] Progress Note (SOAP) Subjective: agitation sweats shakes irritable interrupted sleep Objective: 01/31/19 10:29 Vital Signs Temperature 98.4 F 01/31/19 06:18 Pulse Rate 56 L 01/31/19 06:18 Respiratory Rate 18 01/31/19 06:18 Blood Pressure 104/52 L 01/31/19 06:18 O2 Sat by Pulse Oximetry (%) Laboratory Tests 01/30/19 01/30/19 11:00 11:00 WBC 7.6 RBC 4.13 Hgb 11.8 Hct 36.2 MCV 87.6 MCH 28.7 MCHC 32.7 RDW 14.3 Plt Count 206 MPV 9.4 Sodium 142 Potassium 4.0 Chloride 110 H Carbon Dioxide 29 Anion Gap 3 L BUN 17.4 Creatinine 1.1 Est GFR (CKD-EPI)AfAm 85.91 Est GFR (CKD-EPI)NonAf 74.12 Random Glucose 93 Calcium 9.0 Total Bilirubin 0.3 AST 20 ALT 22 Alkaline Phosphatase 63 Total Protein 6.6 Albumin 3.8 labs noted aaox3 ambulating no acute distress Assessment: 01/31/19 10:29 withdrawals Plan: continue detox increase fluids
[2019-01-31] MEDS: THIAMINE HCL 100 MG TABLET (FP) PO SCH (22:55)
[2019-02-01] MEDS ORDERED: LORazepam 1 MG TABLET PO SCH (05:00)
[2019-02-01 06:11] VITALS: BP 121/83; PULSE 74; TEMP 97.7
--- NOTE | 2019-02-01 09:42 | PN ---
[facility] Progress Note Note: pt states he is leaving d/t family issues he needs to attend to. Pt was encouraged to stay to complete detox and prevent from relapsing. Pt insisted on leaving regardless of all disciplines trying to encourage pt to stay. Pt chose to sign out AMA.
--- NOTE | 2019-02-01 09:44 | DS ---
[facility] Detox Discharge Summary Admission Date: 01/30/19 - History Present History: Alcohol Dependence, Cocaine Dependence, Sedative Dependence - Physical Exam Results Vital Signs: Vital Signs Temperature 97.7 F 02/01/19 06:00 Pulse Rate 74 02/01/19 06:00 Respiratory Rate 18 02/01/19 06:00 Blood Pressure 121/83 02/01/19 06:00 O2 Sat by Pulse Oximetry (%) Pertinent Admission Physical Exam Findings: pt arrived in withdrawals Vital Signs Temperature 97.7 F 02/01/19 06:00 Pulse Rate 74 02/01/19 06:00 Respiratory Rate 18 02/01/19 06:00 Blood Pressure 121/83 02/01/19 06:00 O2 Sat by Pulse Oximetry (%) Laboratory Tests 01/30/19 01/30/19 01/30/19 11:00 11:00 11:00 WBC 7.6 RBC 4.13 Hgb 11.8 Hct 36.2 MCV 87.6 MCH 28.7 MCHC 32.7 RDW 14.3 Plt Count 206 MPV 9.4 Sodium 142 Potassium 4.0 Chloride 110 H Carbon Dioxide 29 Anion Gap 3 L BUN 17.4 Creatinine 1.1 Est GFR (CKD-EPI)AfAm 85.91 Est GFR (CKD-EPI)NonAf 74.12 Random Glucose 93 Calcium 9.0 Total Bilirubin 0.3 AST 20 ALT 22 Alkaline Phosphatase 63 Total Protein 6.6 Albumin 3.8 RPR Titer Nonreactive pt aaox3 ambulating pt chose to sign out AMA. - Treatment Hospital Course: Rehab Referral Accepted Patient has Accepted a Rehab Referral to: pt declined rehab - Medication Discharge Medications: Ambulatory Orders Aspirin [ASA -] 81 mg PO DAILY 04/25/17 - Diagnosis (1) Alcohol dependence with uncomplicated withdrawal Status: Chronic (2) Nicotine dependence Status: Chronic Qualifiers: Nicotine product type: cigarettes Substance use status: uncomplicated Qualified Code(s): F17.210 - Nicotine dependence, cigarettes, uncomplicated (3) Sedative, hypnotic or anxiolytic dependence with withdrawal, uncomplicated Status: Acute (4) Weight loss Status: Acute (5) Cocaine dependence, uncomplicated Status: Chronic - AMA Did Patient Leave Against Medical Advice: Yes
[2019-02-02] MEDS ORDERED: LORazepam 0.5 MG TABLET PO PRN
[2019-02-02] MEDS ORDERED: LORazepam 0.5 MG TABLET PO SCH (05:00)
[2019-02-03] MEDS ORDERED: LORazepam 0.5 MG TABLET PO ONE (05:00)
== END 2019-02-01 09:03 | disposition left against medical advice (07) | DRG 770 ==
LOC: YASAS 09:17 → Y6N 12:00
PROVIDERS: ADMIT Allergy & Immunology; ATTEND Allergy & Immunology
PROC: HZ2ZZZZ Detoxification Services for Substance Abuse Treatment (ICD-10-PCS; principal; 2019-01-30)
DX: F10.230 Alcohol dependence with withdrawal, uncomplicated (principal); F13.230 Sedative, hypnotic or anxiolytic dependence with withdrawal, uncomplicated; F14.20 Cocaine dependence, uncomplicated; F17.210 Nicotine dependence, cigarettes, uncomplicated; R63.4 Abnormal weight loss; Z68.26 Body mass index [BMI] 26.0-26.9, adult; Z59.0 Homelessness
CPT/HCPCS: 36415; 80053; 85027; 86593

== ENCOUNTER 2020-06-05 10:42 | Inpatient (IN) | payer OTHER ==
[2020-06-05 11:27] VITALS: BMI 27.3
[2020-06-05] MEDS ORDERED: BISMUTH SUBSALICYLATE 262 MG/15 ML BTL PO PRN (12:15)
[2020-06-05] MEDS ORDERED: ACETAMINOPHEN 325 MG TABLET (FP) PO PRN ×2 (12:15)
[2020-06-05] MEDS ORDERED: MENTHOL/PHENOL 1 EACH UD MM PRN (12:15)
[2020-06-05] MEDS ORDERED: ONDANSETRON *ODT* 4 MG TABLET SL PRN (12:15)
[2020-06-05] MEDS ORDERED: MAGNESIUM HYDROX 2400MG/30ML ORAL SUSPENSION 30 ML CUP PO PRN (12:15)
[2020-06-05] MEDS ORDERED: METHOCARBAMOL 500 MG TABLET PO PRN (12:15)
[2020-06-05] MEDS ORDERED: MAG HYDROX/AL HYDROX/SIMETH 30 ML UNIT-DOSE CUP PO PRN (12:15)
[2020-06-05] MEDS ORDERED: NICOTINE POLACRILEX 2 MG GUM BUC PRN (12:15)
[2020-06-05] MEDS ORDERED: IBUPROFEN 400 MG TABLET (FP) PO PRN (12:15)
[2020-06-05] MEDS ORDERED: chlordiazePOXIDE HCL 25 MG CAPSULE PO PRN (12:15)
[2020-06-05] MEDS ORDERED: MAGNESIUM CITRATE 300 ML BOTTLE PO PRN (12:15)
[2020-06-05] MEDS ORDERED: NICOTINE 14 MG/24 HOURS TOPICAL PATCH TD SCH (12:30)
[2020-06-05] MEDS: PRENATAL VITAMINS W/ FOLIC ACID TABLET (FP) PO SCH (12:55)
[2020-06-05] MEDS: hydrOXYzine PAMOATE 25 MG CAPSULE (FP) PO SCH ×3 (13:01→23:58)
[2020-06-05 14:45] LABS: HEMATOCRIT 42.4 % (35.4-49); HEMOGLOBIN 13.6 GM/dL (11.7-16.9); MCH 29.5 pg (25.7-33.7); MCHC 32.1 g/dl (32.0-35.9); MEAN CELL VOLUME 92.2 fl (80-96); MEAN PLT VOLUME 10.7 fl (7.5-11.1); PLATELET COUNT 202 K/MM3 (134-434); RDW 14.1 % (11.9-15.9)
[2020-06-05 14:49] LABS: POTASSIUM 4.1 mmol/L (3.5-5.1)
[2020-06-05 14:56] LABS: ALBUMIN 3.9 g/dl (3.4-5.0); BLOOD UREA NITROGEN 14.2 mg/dL (7-18); CALCIUM 9.9 mg/dL (8.5-10.1)
[2020-06-05 14:57] LABS: BILIRUBIN,TOTAL 0.5 mg/dL (0.2-1); TOT PROT 7.5 g/dl (6.4-8.2)
[2020-06-05 14:59] LABS: CREATININE 1.1 mg/dL (0.55-1.3)
[2020-06-05 15:50] LABS: HIV INTERPRETATION NEGATIVE (NEGATIVE)
[2020-06-05] MEDS: chlordiazePOXIDE HCL 25 MG CAPSULE PO SCH ×2 (18:40→23:58)
[2020-06-05] MEDS: THIAMINE HCL 100 MG TABLET (FP) PO SCH (23:58)
[2020-06-05] MEDS: MELATONIN 5 MG TABLETS PO SCH (23:58)
[2020-06-06] MEDS: chlordiazePOXIDE HCL 25 MG CAPSULE PO SCH ×4 (05:32→23:15)
[2020-06-06] MEDS: hydrOXYzine PAMOATE 25 MG CAPSULE (FP) PO SCH ×5 (05:39→23:14)
[2020-06-06] MEDS: PRENATAL VITAMINS W/ FOLIC ACID TABLET (FP) PO SCH (10:14)
[2020-06-06] MEDS: MELATONIN 5 MG TABLETS PO SCH (23:14)
[2020-06-06] MEDS: THIAMINE HCL 100 MG TABLET (FP) PO SCH (23:15)
[2020-06-07] MEDS: hydrOXYzine PAMOATE 25 MG CAPSULE (FP) PO SCH ×5 (05:11→23:11)
[2020-06-07] MEDS: chlordiazePOXIDE HCL 25 MG CAPSULE PO SCH ×4 (05:11→23:12)
[2020-06-07] MEDS: PRENATAL VITAMINS W/ FOLIC ACID TABLET (FP) PO SCH (10:09)
[2020-06-07] MEDS: THIAMINE HCL 100 MG TABLET (FP) PO SCH (23:11)
[2020-06-07] MEDS: MELATONIN 5 MG TABLETS PO SCH (23:11)
[2020-06-08] MEDS ORDERED: chlordiazePOXIDE HCL 10 MG CAPSULE PO PRN
[2020-06-08] MEDS: hydrOXYzine PAMOATE 25 MG CAPSULE (FP) PO SCH ×5 (05:19→23:01)
[2020-06-08] MEDS: chlordiazePOXIDE HCL 10 MG CAPSULE PO SCH ×4 (05:20→22:24)
[2020-06-08 07:11] LABS: SARS-CoV-2 NAA Not Detected (Not Detected)
[2020-06-08] MEDS ORDERED: NICOTINE POLACRILEX 2 MG GUM BUC PRN (09:43)
[2020-06-08] MEDS ORDERED: NICOTINE POLACRILEX 4 MG GUM BUC ONE (10:00)
[2020-06-08] MEDS: PRENATAL VITAMINS W/ FOLIC ACID TABLET (FP) PO SCH (10:09)
[2020-06-08] MEDS: ASPIRIN 81 MG CHEWABLE TABLETS PO SCH (13:51)
[2020-06-08] MEDS: THIAMINE HCL 100 MG TABLET (FP) PO SCH (22:23)
[2020-06-08] MEDS: MELATONIN 5 MG TABLETS PO SCH (23:01)
[2020-06-09] MEDS: chlordiazePOXIDE HCL 10 MG CAPSULE PO SCH ×2 (05:22→17:51)
[2020-06-09] MEDS: hydrOXYzine PAMOATE 25 MG CAPSULE (FP) PO SCH ×5 (05:23→22:59)
[2020-06-09] MEDS: PRENATAL VITAMINS W/ FOLIC ACID TABLET (FP) PO SCH (10:16)
[2020-06-09] MEDS: ASPIRIN 81 MG CHEWABLE TABLETS PO SCH (10:16)
[2020-06-09] MEDS: THIAMINE HCL 100 MG TABLET (FP) PO SCH (22:59)
[2020-06-09] MEDS: MELATONIN 5 MG TABLETS PO SCH (22:59)
[2020-06-10] MEDS ORDERED: chlordiazePOXIDE HCL 10 MG CAPSULE PO ONE (05:00)
[2020-06-10] MEDS: hydrOXYzine PAMOATE 25 MG CAPSULE (FP) PO SCH ×2 (05:24→09:10)
[2020-06-10 07:15] VITALS: TEMP 97.3
[2020-06-10] MEDS ORDERED: MASKS NR ONE (07:36)
[2020-06-10] MEDS: ASPIRIN 81 MG CHEWABLE TABLETS PO SCH (09:10)
[2020-06-10] MEDS: PRENATAL VITAMINS W/ FOLIC ACID TABLET (FP) PO SCH (09:10)
[2020-06-10 09:32] VITALS: BP 160/79; PULSE 96
== END 2020-06-10 09:09 | disposition home or self-care (01) | DRG 774 ==
LOC: YASAS 10:42 → Y6N 11:49
PROVIDERS: ADMIT Allergy & Immunology; ATTEND Allergy & Immunology
PROC: HZ2ZZZZ Detoxification Services for Substance Abuse Treatment (ICD-10-PCS; principal; 2020-06-05)
DX: F10.230 Alcohol dependence with withdrawal, uncomplicated (principal); F13.230 Sedative, hypnotic or anxiolytic dependence with withdrawal, uncomplicated; F14.20 Cocaine dependence, uncomplicated; F17.210 Nicotine dependence, cigarettes, uncomplicated
CPT/HCPCS: 36415; 80053; 82962; 85027; 86780; 86803; 87389; C9803; U0003; U0005

== ENCOUNTER 2020-08-04 14:47 | Inpatient (IN) | payer OTHER ==
[2020-08-04 15:43] VITALS: BMI 26.2
[2020-08-04] MEDS ORDERED: ONDANSETRON *ODT* 4 MG TABLET SL PRN (17:16)
[2020-08-04] MEDS ORDERED: MAGNESIUM HYDROX 2400MG/30ML ORAL SUSPENSION 30 ML CUP PO PRN (17:16)
[2020-08-04] MEDS ORDERED: BISMUTH SUBSALICYLATE 524 MG/30 ML PO PRN (17:16)
[2020-08-04] MEDS ORDERED: IBUPROFEN 400 MG TABLET (FP) PO PRN (17:16)
[2020-08-04] MEDS ORDERED: METHOCARBAMOL 500 MG TABLET PO PRN (17:16)
[2020-08-04] MEDS ORDERED: NICOTINE POLACRILEX 2 MG GUM BUC PRN (17:16)
[2020-08-04] MEDS ORDERED: ACETAMINOPHEN 325 MG TABLET (FP) PO PRN ×2 (17:16)
[2020-08-04] MEDS ORDERED: MAG HYDROX/AL HYDROX/SIMETH 30 ML UNIT-DOSE CUP PO PRN (17:16)
[2020-08-04] MEDS ORDERED: MAGNESIUM CITRATE 300 ML BOTTLE PO PRN (17:16)
[2020-08-04] MEDS ORDERED: MENTHOL/PHENOL 1 EACH UD MM PRN (17:16)
[2020-08-04] MEDS ORDERED: diazePAM 5 MG TABLET PO PRN (17:17)
[2020-08-04] MEDS: diazePAM 5 MG TABLET PO SCH ×2 (18:12→22:30)
[2020-08-04] MEDS: THIAMINE HCL 100 MG TABLET (FP) PO SCH (22:30)
[2020-08-04] MEDS: MELATONIN 5 MG TABLETS PO SCH (22:30)
[2020-08-05] MEDS: diazePAM 5 MG TABLET PO SCH ×4 (05:46→22:00)
[2020-08-05] MEDS ORDERED: MASKS NR ONE (08:52)
[2020-08-05 09:56] LABS: HEMOGLOBIN 12.2 GM/dL (11.7-16.9); MCH 29.2 pg (25.7-33.7); MCHC 32.3 g/dl (32.0-35.9); MEAN CELL VOLUME 90.5 fl (80-96); MEAN PLT VOLUME 9.4 fl (7.5-11.1); PLATELET COUNT 184 K/MM3 (134-434); RDW 13.5 % (11.9-15.9); WHITE BLOOD COUNT 7.2 K/mm3 (4.0-10.0)
[2020-08-05] MEDS: PRENATAL VITAMINS W/ FOLIC ACID TABLET (FP) PO SCH (09:59)
[2020-08-05 10:02] LABS: BLOOD UREA NITROGEN 11.8 mg/dL (7-18); CALCIUM 8.9 mg/dL (8.5-10.1)
[2020-08-05 10:03] LABS: ALBUMIN 3.4 g/dl (3.4-5.0)
[2020-08-05 10:06] LABS: CREATININE 1.1 mg/dL (0.55-1.3)
[2020-08-05 10:07] LABS: BILIRUBIN,TOTAL 0.5 mg/dL (0.2-1); TOT PROT 6.3 g/dl (6.4-8.2)
[2020-08-05] MEDS: MELATONIN 5 MG TABLETS PO SCH (21:59)
[2020-08-05] MEDS: THIAMINE HCL 100 MG TABLET (FP) PO SCH (21:59)
[2020-08-06] MEDS: diazePAM 5 MG TABLET PO SCH ×2 (05:13→13:00)
[2020-08-06] MEDS: PRENATAL VITAMINS W/ FOLIC ACID TABLET (FP) PO SCH (09:04)
[2020-08-06 17:35] VITALS: BP 119/74; PULSE 66; TEMP 96.8
[2020-08-07] MEDS ORDERED: diazePAM 5 MG TABLET PO SCH (06:00)
[2020-08-08] MEDS ORDERED: diazePAM 5 MG TABLET PO ONE (06:00)
[2020-08-08 06:08] LABS: SARS-CoV-2 NAA Not Detected (Not Detected)
== END 2020-08-06 17:00 | disposition home or self-care (01) | DRG 774 ==
LOC: YASAS 14:47 → Y3N 17:24
PROVIDERS: ADMIT Allergy & Immunology; ATTEND Allergy & Immunology
PROC: HZ2ZZZZ Detoxification Services for Substance Abuse Treatment (ICD-10-PCS; principal; 2020-08-04)
DX: F10.230 Alcohol dependence with withdrawal, uncomplicated (principal); F14.20 Cocaine dependence, uncomplicated; F13.20 Sedative, hypnotic or anxiolytic dependence, uncomplicated; F17.210 Nicotine dependence, cigarettes, uncomplicated; Z59.0 Homelessness; Z91.018 Allergy to other foods
CPT/HCPCS: 36415; 80053; 85027; 86780; C9803; U0003; U0005

== ENCOUNTER 2020-11-04 12:11 | Inpatient (IN) | payer OTHER ==
[2020-11-04 12:54] VITALS: BMI 27.1
[2020-11-04] MEDS ORDERED: IBUPROFEN 400 MG TABLET (FP) PO PRN (13:32)
[2020-11-04] MEDS ORDERED: BISMUTH SUBSALICYLATE 262 MG/15 ML BTL PO PRN (13:32)
[2020-11-04] MEDS ORDERED: ONDANSETRON *ODT* 4 MG TABLET SL PRN (13:32)
[2020-11-04] MEDS ORDERED: METHOCARBAMOL 500 MG TABLET PO PRN (13:32)
[2020-11-04] MEDS ORDERED: MENTHOL/PHENOL 1 EACH UD MM PRN (13:32)
[2020-11-04] MEDS ORDERED: MAGNESIUM HYDROX 2400MG/30ML ORAL SUSPENSION 30 ML CUP PO PRN (13:32)
[2020-11-04] MEDS ORDERED: ACETAMINOPHEN 325 MG TABLET (FP) PO PRN ×2 (13:32)
[2020-11-04] MEDS ORDERED: MAGNESIUM CITRATE 300 ML BOTTLE PO PRN (13:32)
[2020-11-04] MEDS ORDERED: MAG HYDROX/AL HYDROX/SIMETH 30 ML UNIT-DOSE CUP PO PRN (13:32)
[2020-11-04] MEDS ORDERED: NICOTINE 10 MG CARTRIDGE (INHALER) IH PRN (13:32)
[2020-11-04] MEDS: hydrOXYzine PAMOATE 25 MG CAPSULE (FP) PO SCH ×3 (14:44→22:18)
[2020-11-04] MEDS: diazePAM 5 MG TABLET PO PRN (14:44)
[2020-11-04] MEDS: NICOTINE 7 MG/24 HOURS TOPICAL PATCH TD SCH (14:44)
[2020-11-04] MEDS: PRENATAL VITAMINS W/ FOLIC ACID TABLET (FP) PO SCH (14:44)
[2020-11-04] MEDS: diazePAM 5 MG TABLET PO SCH ×2 (17:52→22:17)
[2020-11-04] MEDS: MELATONIN 5 MG TABLETS PO SCH (22:18)
[2020-11-04] MEDS: THIAMINE HCL 100 MG TABLET (FP) PO SCH (22:18)
[2020-11-05] MEDS: hydrOXYzine PAMOATE 25 MG CAPSULE (FP) PO SCH ×5 (05:15→22:53)
[2020-11-05] MEDS: diazePAM 5 MG TABLET PO SCH ×4 (05:15→22:53)
[2020-11-05] MEDS: ASPIRIN 81 MG CHEWABLE TABLETS PO SCH (10:07)
[2020-11-05] MEDS: PRENATAL VITAMINS W/ FOLIC ACID TABLET (FP) PO SCH (10:07)
[2020-11-05] MEDS: NICOTINE 7 MG/24 HOURS TOPICAL PATCH TD SCH (10:08)
[2020-11-05 12:35] LABS: HEMATOCRIT 36.7 % (35.4-49); HEMOGLOBIN 12.1 GM/dL (11.7-16.9); MCH 29.5 pg (25.7-33.7); MCHC 33.1 g/dl (32.0-35.9); MEAN CELL VOLUME 89.1 fl (80-96); MEAN PLT VOLUME 10.1 fl (7.5-11.1); PLATELET COUNT 171 10^3/uL (134-434); RBC 4.12 M/mm3 (4.00-5.60); RDW 13.9 % (11.9-15.9); WHITE BLOOD COUNT 5.5 K/mm3 (4.0-10.0)
[2020-11-05 12:48] LABS: ALBUMIN 3.5 g/dl (3.4-5.0); BLOOD UREA NITROGEN 15.8 mg/dL (7-18); CALCIUM 8.9 mg/dL (8.5-10.1)
[2020-11-05 12:53] LABS: CREATININE 1.1 mg/dL (0.55-1.3); TOT PROT 6.7 g/dl (6.4-8.2)
[2020-11-05 12:55] LABS: BILIRUBIN,TOTAL 1.2 mg/dL (0.2-1)
[2020-11-05] MEDS: THIAMINE HCL 100 MG TABLET (FP) PO SCH (22:53)
[2020-11-05] MEDS: MELATONIN 5 MG TABLETS PO SCH (22:53)
[2020-11-06] MEDS: diazePAM 5 MG TABLET PO SCH ×3 (06:38→23:07)
[2020-11-06] MEDS: hydrOXYzine PAMOATE 25 MG CAPSULE (FP) PO SCH (06:38)
[2020-11-06] MEDS ORDERED: hydrOXYzine PAMOATE 25 MG CAPSULE (FP) PO PRN (07:44)
[2020-11-06] MEDS: NICOTINE 7 MG/24 HOURS TOPICAL PATCH TD SCH (10:26)
[2020-11-06] MEDS: ASPIRIN 81 MG CHEWABLE TABLETS PO SCH (10:26)
[2020-11-06] MEDS: PRENATAL VITAMINS W/ FOLIC ACID TABLET (FP) PO SCH (10:26)
[2020-11-06] MEDS: diazePAM 5 MG TABLET PO PRN (10:28)
[2020-11-06] MEDS: MELATONIN 5 MG TABLETS PO SCH (23:06)
[2020-11-06] MEDS: THIAMINE HCL 100 MG TABLET (FP) PO SCH (23:06)
[2020-11-07] MEDS ORDERED: diazePAM 5 MG TABLET PO SCH (06:00)
[2020-11-07 09:57] VITALS: BP 122/55; PULSE 62; TEMP 97.1
[2020-11-08] MEDS ORDERED: diazePAM 5 MG TABLET PO ONE (06:00)
== END 2020-11-07 10:13 | disposition home or self-care (01) | DRG 774 ==
LOC: YASAS 12:11 → Y6N 13:25 → Y3N 20:25
PROVIDERS: ADMIT Allergy & Immunology; ATTEND Allergy & Immunology
PROC: HZ2ZZZZ Detoxification Services for Substance Abuse Treatment (ICD-10-PCS; principal; 2020-11-04)
DX: F10.230 Alcohol dependence with withdrawal, uncomplicated (principal); F14.20 Cocaine dependence, uncomplicated; F13.20 Sedative, hypnotic or anxiolytic dependence, uncomplicated; F17.210 Nicotine dependence, cigarettes, uncomplicated; R63.4 Abnormal weight loss; Z68.27 Body mass index [BMI] 27.0-27.9, adult; Z59.0 Homelessness
CPT/HCPCS: 36415; 80053; 85027; 86780; C9803; U0003; U0005

== ENCOUNTER 2021-01-16 16:37 | Inpatient (IN) | payer OTHER ==
[2021-01-16 17:18] VITALS: BMI 27.6
[2021-01-16] MEDS ORDERED: MAG HYDROX/AL HYDROX/SIMETH 30 ML UNIT-DOSE CUP PO PRN (17:31)
[2021-01-16] MEDS ORDERED: MENTHOL/PHENOL 1 EACH UD MM PRN (17:31)
[2021-01-16] MEDS ORDERED: METHOCARBAMOL 500 MG TABLET PO PRN (17:31)
[2021-01-16] MEDS ORDERED: NICOTINE POLACRILEX 2 MG GUM BUC PRN (17:31)
[2021-01-16] MEDS ORDERED: ONDANSETRON *ODT* 4 MG TABLET SL PRN (17:31)
[2021-01-16] MEDS ORDERED: ACETAMINOPHEN 325 MG TABLET (FP) PO PRN ×2 (17:31)
[2021-01-16] MEDS ORDERED: BISMUTH SUBSALICYLATE 524 MG/30 ML PO PRN (17:31)
[2021-01-16] MEDS ORDERED: MAGNESIUM CITRATE 300 ML BOTTLE PO PRN (17:31)
[2021-01-16] MEDS ORDERED: IBUPROFEN 400 MG TABLET (FP) PO PRN (17:31)
[2021-01-16] MEDS ORDERED: MAGNESIUM HYDROX 2400MG/30ML ORAL SUSPENSION 30 ML CUP PO PRN (17:31)
[2021-01-16] MEDS ORDERED: diazePAM 5 MG TABLET PO PRN (17:33)
[2021-01-16] MEDS: hydrOXYzine PAMOATE 25 MG CAPSULE (FP) PO PRN (18:50)
[2021-01-16] MEDS: THIAMINE HCL 100 MG TABLET (FP) PO SCH (22:40)
[2021-01-16] MEDS: MELATONIN 5 MG TABLETS PO SCH (22:40)
[2021-01-16] MEDS: diazePAM 5 MG TABLET PO SCH (22:41)
[2021-01-17] MEDS: diazePAM 5 MG TABLET PO SCH ×4 (05:42→22:30)
[2021-01-17] MEDS ORDERED: PRENATAL VITAMINS W/ FOLIC ACID TABLET (FP) PO SCH (10:00)
[2021-01-17] MEDS: hydrOXYzine PAMOATE 25 MG CAPSULE (FP) PO PRN ×2 (10:25→22:30)
[2021-01-17] MEDS: THIAMINE HCL 100 MG TABLET (FP) PO SCH (22:30)
[2021-01-17] MEDS: MELATONIN 5 MG TABLETS PO SCH (22:31)
[2021-01-18] MEDS ORDERED: diazePAM 5 MG TABLET PO SCH (06:00)
[2021-01-18 09:49] VITALS: BP 131/84; PULSE 64; TEMP 97.5
[2021-01-18 12:17] LABS: HEMATOCRIT 37.7 % (35.4-49); HEMOGLOBIN 12.2 GM/dL (11.7-16.9); MCH 29.3 pg (25.7-33.7); MCHC 32.5 g/dl (32.0-35.9); MEAN CELL VOLUME 90.2 fl (80-96); MEAN PLT VOLUME 9.3 fl (7.5-11.1); PLATELET COUNT 181 10^3/uL (134-434); RBC 4.17 M/mm3 (4.00-5.60); RDW 13.9 % (11.9-15.9); WHITE BLOOD COUNT 6.1 K/mm3 (4.0-10.0)
[2021-01-18 12:28] LABS: CALCIUM 9.2 mg/dL (8.5-10.1)
[2021-01-18 12:29] LABS: ALBUMIN 3.5 g/dl (3.4-5.0); BLOOD UREA NITROGEN 13.4 mg/dL (7-18)
[2021-01-18 12:32] LABS: CREATININE 1.1 mg/dL (0.55-1.3)
[2021-01-18 12:33] LABS: BILIRUBIN,TOTAL 0.7 mg/dL (0.2-1); TOT PROT 6.6 g/dl (6.4-8.2)
[2021-01-18 16:59] LABS: HIV INTERPRETATION NEGATIVE (NEGATIVE)
[2021-01-19] MEDS ORDERED: diazePAM 5 MG TABLET PO SCH (06:00)
[2021-01-20] MEDS ORDERED: diazePAM 5 MG TABLET PO ONE (06:00)
== END 2021-01-18 10:51 | disposition left against medical advice (07) | DRG 770 ==
LOC: YASAS 16:37 → Y6N 18:02 → UNDOADMIN 18:02
PROVIDERS: ADMIT Allergy & Immunology; ATTEND Allergy & Immunology
PROC: HZ2ZZZZ Detoxification Services for Substance Abuse Treatment (ICD-10-PCS; principal; 2021-01-16)
DX: F10.230 Alcohol dependence with withdrawal, uncomplicated (principal); F13.230 Sedative, hypnotic or anxiolytic dependence with withdrawal, uncomplicated; F14.20 Cocaine dependence, uncomplicated; F17.210 Nicotine dependence, cigarettes, uncomplicated; Z91.018 Allergy to other foods
CPT/HCPCS: 36415; 80053; 85027; 86780; 86803; 87389; C9803; U0003; U0005

== ENCOUNTER 2021-07-16 12:29 | Inpatient (IN) | payer OTHER ==
[2021-07-16] MEDS ORDERED: ACETAMINOPHEN 325 MG TABLET (FP) PO PRN ×2 (13:48)
[2021-07-16] MEDS ORDERED: DICYCLOMINE HCL 10 MG CAPSULE PO PRN (13:48)
[2021-07-16] MEDS ORDERED: BISMUTH SUBSALICYLATE 262 MG/15 ML BTL PO PRN (13:48)
[2021-07-16] MEDS ORDERED: BENZOCAINE/MENTHOL (CHLORASEPTIC ) LOZENGE MM PRN (13:48)
[2021-07-16] MEDS ORDERED: MAGNESIUM CITRATE 300 ML BOTTLE PO PRN (13:48)
[2021-07-16] MEDS ORDERED: ONDANSETRON *ODT* 4 MG TABLET SL PRN (13:48)
[2021-07-16] MEDS ORDERED: METHOCARBAMOL 500 MG TABLET PO PRN (13:48)
[2021-07-16] MEDS ORDERED: MAGNESIUM HYDROX 2400MG/30ML ORAL SUSPENSION 30 ML CUP PO PRN (13:48)
[2021-07-16] MEDS ORDERED: NICOTINE 10 MG CARTRIDGE (INHALER) IH PRN (13:48)
[2021-07-16] MEDS ORDERED: MAG HYDROX/AL HYDROX/SIMETH 30 ML UNIT-DOSE CUP PO PRN (13:48)
[2021-07-16] MEDS ORDERED: LOPERAMIDE HCL 2 MG CAPSULE PO PRN (13:48)
[2021-07-16] MEDS ORDERED: IBUPROFEN 400 MG TABLET (FP) PO PRN (13:48)
[2021-07-16 15:26] LABS: HEMATOCRIT 39.9 % (35.4-49); HEMOGLOBIN 12.9 GM/dL (11.7-16.9); MCH 28.6 pg (25.7-33.7); MCHC 32.4 g/dl (32.0-35.9); MEAN CELL VOLUME 88.1 fl (80-96); MEAN PLT VOLUME 9.3 fl (7.5-11.1); PLATELET COUNT 190 10^3/uL (134-434); RBC 4.53 M/mm3 (4.00-5.60); WHITE BLOOD COUNT 7.9 K/mm3 (4.0-10.0)
[2021-07-16 15:32] LABS: BLOOD UREA NITROGEN 18.4 mg/dL (7-18); CALCIUM 9.8 mg/dL (8.5-10.1)
[2021-07-16 15:35] LABS: CREATININE 1.1 mg/dL (0.55-1.3)
[2021-07-16 15:37] LABS: BILIRUBIN,TOTAL 0.5 mg/dL (0.2-1); TOT PROT 7.3 g/dl (6.4-8.2)
[2021-07-16 15:57] VITALS: BMI 26.4
[2021-07-16 16:28] LABS: HIV INTERPRETATION NEGATIVE (NEGATIVE)
[2021-07-16] MEDS: PRENATAL VITAMINS W/ FOLIC ACID TABLET (FP) PO SCH (18:17)
[2021-07-16] MEDS: hydrOXYzine PAMOATE 25 MG CAPSULE (FP) PO SCH ×3 (18:18→22:55)
[2021-07-16] MEDS: diazePAM 5 MG TABLET PO SCH ×2 (18:18→22:56)
[2021-07-16] MEDS: NICOTINE 14 MG/24 HOURS TOPICAL PATCH TD SCH (18:20)
[2021-07-16] MEDS: MELATONIN 5 MG TABLETS PO SCH (22:55)
[2021-07-16] MEDS: THIAMINE HCL 100 MG TABLET (FP) PO SCH (22:55)
[2021-07-17] MEDS: hydrOXYzine PAMOATE 25 MG CAPSULE (FP) PO SCH ×5 (05:24→22:38)
[2021-07-17] MEDS: diazePAM 5 MG TABLET PO SCH ×4 (05:24→22:38)
[2021-07-17] MEDS: PRENATAL VITAMINS W/ FOLIC ACID TABLET (FP) PO SCH (10:20)
[2021-07-17] MEDS: NICOTINE 14 MG/24 HOURS TOPICAL PATCH TD SCH (10:21)
[2021-07-17] MEDS: THIAMINE HCL 100 MG TABLET (FP) PO SCH (22:38)
[2021-07-17] MEDS: MELATONIN 5 MG TABLETS PO SCH (22:38)
[2021-07-18] MEDS: diazePAM 5 MG TABLET PO SCH ×3 (05:57→22:48)
[2021-07-18] MEDS: hydrOXYzine PAMOATE 25 MG CAPSULE (FP) PO SCH ×5 (05:57→22:49)
[2021-07-18] MEDS: NICOTINE 14 MG/24 HOURS TOPICAL PATCH TD SCH (10:08)
[2021-07-18] MEDS: diazePAM 5 MG TABLET PO PRN ×2 (10:08→17:22)
[2021-07-18] MEDS: PRENATAL VITAMINS W/ FOLIC ACID TABLET (FP) PO SCH (10:08)
[2021-07-18 14:07] LABS: SARS-CoV-2 NAA Not Detected (Not Detected)
[2021-07-18] MEDS: MELATONIN 5 MG TABLETS PO SCH (22:48)
[2021-07-18] MEDS: THIAMINE HCL 100 MG TABLET (FP) PO SCH (22:49)
[2021-07-19] MEDS: hydrOXYzine PAMOATE 25 MG CAPSULE (FP) PO SCH ×2 (05:14→10:12)
[2021-07-19] MEDS ORDERED: diazePAM 5 MG TABLET PO SCH (06:00)
[2021-07-19 09:29] VITALS: BP 119/63; PULSE 70; TEMP 97.5
[2021-07-19] MEDS: PRENATAL VITAMINS W/ FOLIC ACID TABLET (FP) PO SCH (10:12)
[2021-07-19] MEDS: NICOTINE 14 MG/24 HOURS TOPICAL PATCH TD SCH (10:13)
[2021-07-19] MEDS ORDERED: ASPIRIN 81 MG CHEWABLE TABLETS PO SCH (11:45)
[2021-07-20] MEDS ORDERED: diazePAM 5 MG TABLET PO ONE (06:00)
== END 2021-07-19 13:03 | disposition home or self-care (01) | DRG 774 ==
LOC: YASAS 12:29 → Y3N 16:09
PROVIDERS: ADMIT Allergy & Immunology; ATTEND Surgery
PROC: HZ2ZZZZ Detoxification Services for Substance Abuse Treatment (ICD-10-PCS; principal; 2021-07-16)
DX: F10.230 Alcohol dependence with withdrawal, uncomplicated (principal); F13.230 Sedative, hypnotic or anxiolytic dependence with withdrawal, uncomplicated; F14.20 Cocaine dependence, uncomplicated; F17.210 Nicotine dependence, cigarettes, uncomplicated; R73.9 Hyperglycemia, unspecified
CPT/HCPCS: 36415; 80053; 85027; 86780; 87389; C9803-CS; U0003; U0005

== ENCOUNTER 2021-08-28 10:19 | Inpatient (IN) | payer OTHER ==
[2021-08-28 11:35] VITALS: BMI 26.4
[2021-08-28] MEDS ORDERED: BENZOCAINE/MENTHOL (CHLORASEPTIC ) LOZENGE MM PRN (12:07)
[2021-08-28] MEDS ORDERED: MAGNESIUM HYDROX 2400MG/30ML ORAL SUSPENSION 30 ML CUP PO PRN (12:07)
[2021-08-28] MEDS ORDERED: NICOTINE 10 MG CARTRIDGE (INHALER) IH PRN (12:07)
[2021-08-28] MEDS ORDERED: NICOTINE POLACRILEX 4 MG GUM BUC PRN (12:07)
[2021-08-28] MEDS ORDERED: LOPERAMIDE HCL 2 MG CAPSULE PO PRN (12:07)
[2021-08-28] MEDS ORDERED: DICYCLOMINE HCL 10 MG CAPSULE PO PRN (12:07)
[2021-08-28] MEDS ORDERED: diazePAM 5 MG TABLET PO ONE (12:07)
[2021-08-28] MEDS ORDERED: ONDANSETRON *ODT* 4 MG TABLET SL PRN (12:07)
[2021-08-28] MEDS ORDERED: BISMUTH SUBSALICYLATE 524 MG/30 ML PO PRN (12:07)
[2021-08-28] MEDS ORDERED: MAG HYDROX/AL HYDROX/SIMETH 30 ML UNIT-DOSE CUP PO PRN (12:07)
[2021-08-28] MEDS ORDERED: IBUPROFEN 600 MG TABLET (FP) PO PRN (12:07)
[2021-08-28] MEDS ORDERED: ACETAMINOPHEN 325 MG TABLET (FP) PO PRN ×2 (12:07)
[2021-08-28] MEDS ORDERED: MAGNESIUM CITRATE 300 ML BOTTLE PO PRN (12:07)
[2021-08-28] MEDS ORDERED: IBUPROFEN 400 MG TABLET (FP) PO PRN (12:07)
[2021-08-28] MEDS ORDERED: diazePAM 5 MG TABLET ONE (15:19)
[2021-08-28] MEDS: diazePAM 5 MG TABLET PO SCH ×2 (17:04→22:39)
[2021-08-28] MEDS: PRENATAL VITAMINS W/ FOLIC ACID TABLET (FP) PO SCH (17:04)
[2021-08-28] MEDS: TOLNAFTATE 1% CREAM 15 GM TUBE TP SCH ×2 (19:51→22:38)
[2021-08-28] MEDS: THIAMINE HCL 100 MG TABLET (FP) PO SCH (22:38)
[2021-08-28] MEDS: MELATONIN 5 MG TABLETS PO SCH (22:38)
[2021-08-29] MEDS: diazePAM 5 MG TABLET PO SCH ×4 (06:02→22:28)
[2021-08-29 09:38] LABS: ALBUMIN 3.8 g/dl (3.4-5.0); CALCIUM 9.4 mg/dL (8.5-10.1)
[2021-08-29 09:39] LABS: BLOOD UREA NITROGEN 11.6 mg/dL (7-18)
[2021-08-29 09:42] LABS: CREATININE 1.3 mg/dL (0.55-1.3)
[2021-08-29 09:43] LABS: BILIRUBIN,TOTAL 0.7 mg/dL (0.2-1); TOT PROT 7.2 g/dl (6.4-8.2)
[2021-08-29 09:50] LABS: HEMATOCRIT 41.6 % (35.4-49); HEMOGLOBIN 13.3 GM/dL (11.7-16.9); MCH 28.6 pg (25.7-33.7); MEAN CELL VOLUME 89.4 fl (80-96); MEAN PLT VOLUME 9.7 fl (7.5-11.1); PLATELET COUNT 207 10^3/uL (134-434); RBC 4.65 M/mm3 (4.00-5.60); RDW 13.8 % (11.9-15.9); WHITE BLOOD COUNT 7.2 K/mm3 (4.0-10.0)
[2021-08-29] MEDS: PRENATAL VITAMINS W/ FOLIC ACID TABLET (FP) PO SCH (10:42)
[2021-08-29] MEDS: TOLNAFTATE 1% CREAM 15 GM TUBE TP SCH ×2 (10:43→22:28)
[2021-08-29] MEDS: METHOCARBAMOL 500 MG TABLET PO PRN ×2 (17:24→22:28)
[2021-08-29] MEDS: MELATONIN 5 MG TABLETS PO SCH (22:28)
[2021-08-29] MEDS: THIAMINE HCL 100 MG TABLET (FP) PO SCH (22:28)
[2021-08-30] MEDS: METHOCARBAMOL 500 MG TABLET PO PRN ×2 (06:03→22:59)
[2021-08-30] MEDS: diazePAM 5 MG TABLET PO SCH ×3 (06:03→22:58)
[2021-08-30] MEDS: PRENATAL VITAMINS W/ FOLIC ACID TABLET (FP) PO SCH (10:22)
[2021-08-30] MEDS: TOLNAFTATE 1% CREAM 15 GM TUBE TP SCH ×2 (10:23→22:58)
[2021-08-30] MEDS: diazePAM 5 MG TABLET PO PRN (10:24)
[2021-08-30 11:34] LABS: HIV INTERPRETATION NEGATIVE (NEGATIVE)
[2021-08-30] MEDS: THIAMINE HCL 100 MG TABLET (FP) PO SCH (22:58)
[2021-08-30] MEDS: MELATONIN 5 MG TABLETS PO SCH (22:59)
[2021-08-31] MEDS: diazePAM 5 MG TABLET PO SCH ×2 (06:19→17:29)
[2021-08-31] MEDS: PRENATAL VITAMINS W/ FOLIC ACID TABLET (FP) PO SCH (10:42)
[2021-08-31] MEDS: METHOCARBAMOL 500 MG TABLET PO PRN ×2 (10:42→17:29)
[2021-08-31] MEDS: diazePAM 5 MG TABLET PO PRN (10:42)
[2021-08-31] MEDS: TOLNAFTATE 1% CREAM 15 GM TUBE TP SCH ×2 (10:43→23:31)
[2021-08-31 22:51] VITALS: BP 144/60; PULSE 78; TEMP 98.4
[2021-08-31] MEDS: MELATONIN 5 MG TABLETS PO SCH (23:31)
[2021-08-31] MEDS: THIAMINE HCL 100 MG TABLET (FP) PO SCH (23:31)
[2021-09-01] MEDS ORDERED: diazePAM 5 MG TABLET PO ONE (06:00)
[2021-09-01] MEDS: TOLNAFTATE 1% CREAM 15 GM TUBE TP SCH (09:03)
[2021-09-01] MEDS: PRENATAL VITAMINS W/ FOLIC ACID TABLET (FP) PO SCH (09:03)
== END 2021-09-01 09:06 | disposition home or self-care (01) | DRG 774 ==
LOC: YASAS 10:19 → Y6N 15:35
PROVIDERS: ADMIT Allergy & Immunology; ATTEND Surgery
PROC: HZ2ZZZZ Detoxification Services for Substance Abuse Treatment (ICD-10-PCS; principal; 2021-08-28)
DX: F10.230 Alcohol dependence with withdrawal, uncomplicated (principal); F13.230 Sedative, hypnotic or anxiolytic dependence with withdrawal, uncomplicated; F14.20 Cocaine dependence, uncomplicated; F17.213 Nicotine dependence, cigarettes, with withdrawal; Z91.018 Allergy to other foods; Z56.0 Unemployment, unspecified; Z59.00 Homelessness unspecified
CPT/HCPCS: 36415; 80053; 82962; 85027; 86780; 87389; 87811; C9803-CS; U0003; U0005

== ENCOUNTER 2021-10-28 12:43 | Inpatient (IN) | payer BC ==
[2021-10-28 14:27] VITALS: BMI 25.1
[2021-10-28] MEDS ORDERED: chlordiazePOXIDE HCL 25 MG CAPSULE PO PRN (17:08)
[2021-10-28] MEDS ORDERED: ACETAMINOPHEN 325 MG TABLET (FP) PO PRN ×2 (17:08)
[2021-10-28] MEDS ORDERED: MAGNESIUM CITRATE 300 ML BOTTLE PO PRN (17:08)
[2021-10-28] MEDS ORDERED: MAG HYDROX/AL HYDROX/SIMETH 30 ML UNIT-DOSE CUP PO PRN (17:08)
[2021-10-28] MEDS ORDERED: ONDANSETRON *ODT* 4 MG TABLET SL PRN (17:08)
[2021-10-28] MEDS ORDERED: IBUPROFEN 600 MG TABLET (FP) PO PRN (17:08)
[2021-10-28] MEDS ORDERED: BISMUTH SUBSALICYLATE 524 MG/30 ML PO PRN (17:08)
[2021-10-28] MEDS ORDERED: LOPERAMIDE HCL 2 MG CAPSULE PO PRN (17:08)
[2021-10-28] MEDS ORDERED: BENZOCAINE/MENTHOL (CHLORASEPTIC ) LOZENGE MM PRN (17:08)
[2021-10-28] MEDS ORDERED: NICOTINE 10 MG CARTRIDGE (INHALER) IH PRN (17:08)
[2021-10-28] MEDS ORDERED: MAGNESIUM HYDROX 2400MG/30ML ORAL SUSPENSION 30 ML CUP PO PRN (17:08)
[2021-10-28] MEDS ORDERED: IBUPROFEN 400 MG TABLET (FP) PO PRN (17:08)
[2021-10-28] MEDS ORDERED: DICYCLOMINE HCL 10 MG CAPSULE PO PRN (17:08)
[2021-10-28] MEDS: METHOCARBAMOL 500 MG TABLET PO PRN (18:04)
[2021-10-28] MEDS: hydrOXYzine PAMOATE 25 MG CAPSULE (FP) PO SCH ×2 (18:04→22:36)
[2021-10-28] MEDS: chlordiazePOXIDE HCL 25 MG CAPSULE PO SCH (22:35)
[2021-10-28] MEDS: MELATONIN 5 MG TABLETS PO SCH (22:36)
[2021-10-28] MEDS: THIAMINE HCL 100 MG TABLET (FP) PO SCH (22:36)
[2021-10-29] MEDS: hydrOXYzine PAMOATE 25 MG CAPSULE (FP) PO SCH ×5 (05:23→22:27)
[2021-10-29] MEDS: chlordiazePOXIDE HCL 25 MG CAPSULE PO SCH ×4 (05:24→22:27)
[2021-10-29 10:07] LABS: HEMATOCRIT 39.4 % (35.4-49); HEMOGLOBIN 12.5 GM/dL (11.7-16.9); MCH 28.1 pg (25.7-33.7); MCHC 31.7 g/dl (32.0-35.9); MEAN CELL VOLUME 88.6 fl (80-96); PLATELET COUNT 188 10^3/uL (134-434); RBC 4.45 M/mm3 (4.00-5.60); RDW 13.7 % (11.9-15.9); WHITE BLOOD COUNT 7.2 K/mm3 (4.0-10.0)
[2021-10-29] MEDS: PRENATAL VITAMINS W/ FOLIC ACID TABLET (FP) PO SCH (10:33)
[2021-10-29 10:48] LABS: CALCIUM 9.1 mg/dL (8.5-10.1)
[2021-10-29 10:49] LABS: ALBUMIN 3.5 g/dl (3.4-5.0); BLOOD UREA NITROGEN 19.2 mg/dL (7-18)
[2021-10-29 10:52] LABS: CREATININE 1.1 mg/dL (0.55-1.3)
[2021-10-29 10:53] LABS: BILIRUBIN,TOTAL 0.6 mg/dL (0.2-1); TOT PROT 6.6 g/dl (6.4-8.2)
[2021-10-29 12:01] LABS: HIV INTERPRETATION NEGATIVE (NEGATIVE)
[2021-10-29] MEDS: METHOCARBAMOL 500 MG TABLET PO PRN (17:52)
[2021-10-29] MEDS: MELATONIN 5 MG TABLETS PO SCH (22:27)
[2021-10-29] MEDS: THIAMINE HCL 100 MG TABLET (FP) PO SCH (22:27)
[2021-10-30] MEDS: chlordiazePOXIDE HCL 25 MG CAPSULE PO SCH ×4 (05:17→22:32)
[2021-10-30] MEDS: hydrOXYzine PAMOATE 25 MG CAPSULE (FP) PO SCH ×5 (05:17→22:32)
[2021-10-30] MEDS: PRENATAL VITAMINS W/ FOLIC ACID TABLET (FP) PO SCH (10:29)
[2021-10-30] MEDS: THIAMINE HCL 100 MG TABLET (FP) PO SCH (22:32)
[2021-10-30] MEDS: MELATONIN 5 MG TABLETS PO SCH (22:32)
[2021-10-31] MEDS ORDERED: chlordiazePOXIDE HCL 10 MG CAPSULE PO PRN
[2021-10-31] MEDS: hydrOXYzine PAMOATE 25 MG CAPSULE (FP) PO SCH ×5 (05:13→22:23)
[2021-10-31] MEDS: chlordiazePOXIDE HCL 10 MG CAPSULE PO SCH ×4 (05:13→22:23)
[2021-10-31 09:21] VITALS: RESP 18
[2021-10-31] MEDS: PRENATAL VITAMINS W/ FOLIC ACID TABLET (FP) PO SCH (10:07)
[2021-10-31] MEDS: METHOCARBAMOL 500 MG TABLET PO PRN (10:07)
[2021-10-31] MEDS: THIAMINE HCL 100 MG TABLET (FP) PO SCH (22:22)
[2021-10-31] MEDS: MELATONIN 5 MG TABLETS PO SCH (22:23)
[2021-11-01] MEDS: hydrOXYzine PAMOATE 25 MG CAPSULE (FP) PO SCH ×2 (04:59→10:47)
[2021-11-01] MEDS ORDERED: chlordiazePOXIDE HCL 10 MG CAPSULE PO SCH (05:00)
[2021-11-01 09:11] VITALS: BP 127/80; PULSE 72; TEMP 97.5
[2021-11-01] MEDS: PRENATAL VITAMINS W/ FOLIC ACID TABLET (FP) PO SCH (10:47)
[2021-11-02] MEDS ORDERED: chlordiazePOXIDE HCL 10 MG CAPSULE PO ONE (05:00)
== END 2021-11-01 12:43 | disposition home or self-care (01) | DRG 774 ==
LOC: YASAS 12:43 → Y6N 17:15
PROVIDERS: ADMIT Allergy & Immunology; ATTEND Surgery
PROC: HZ2ZZZZ Detoxification Services for Substance Abuse Treatment (ICD-10-PCS; principal; 2021-10-28)
DX: F10.230 Alcohol dependence with withdrawal, uncomplicated (principal); F14.20 Cocaine dependence, uncomplicated; F13.230 Sedative, hypnotic or anxiolytic dependence with withdrawal, uncomplicated; F17.210 Nicotine dependence, cigarettes, uncomplicated; M54.50 Low back pain, unspecified; G89.29 Other chronic pain; R73.9 Hyperglycemia, unspecified; Z91.014 Allergy to mammalian meats
CPT/HCPCS: 36415; 80053; 82962; 85027; 86780; 87389; 87811; C9803-CS; U0003; U0005

== ENCOUNTER 2021-12-31 08:14 | Inpatient (IN) | payer BC ==
[2021-12-31 08:53] VITALS: BMI 27.0
[2021-12-31] MEDS ORDERED: BISMUTH SUBSALICYLATE 524 MG/30 ML PO PRN (09:30)
[2021-12-31] MEDS ORDERED: BENZOCAINE/MENTHOL (CHLORASEPTIC ) LOZENGE MM PRN (09:30)
[2021-12-31] MEDS ORDERED: ONDANSETRON *ODT* 4 MG TABLET SL PRN (09:30)
[2021-12-31] MEDS ORDERED: LOPERAMIDE HCL 2 MG CAPSULE PO PRN (09:30)
[2021-12-31] MEDS ORDERED: NICOTINE 10 MG CARTRIDGE (INHALER) IH PRN (09:30)
[2021-12-31] MEDS ORDERED: MAGNESIUM HYDROX 2400MG/30ML ORAL SUSPENSION 30 ML CUP PO PRN (09:30)
[2021-12-31] MEDS ORDERED: DICYCLOMINE HCL 10 MG CAPSULE PO PRN (09:30)
[2021-12-31] MEDS ORDERED: IBUPROFEN 400 MG TABLET (FP) PO PRN (09:30)
[2021-12-31] MEDS ORDERED: MAG HYDROX/AL HYDROX/SIMETH 30 ML UNIT-DOSE CUP PO PRN (09:30)
[2021-12-31] MEDS ORDERED: MAGNESIUM CITRATE 300 ML BOTTLE PO PRN (09:30)
[2021-12-31] MEDS ORDERED: NALOXONE HCL (KLOXXADO) 8 MG SPRAY NS PRN (09:30)
[2021-12-31] MEDS ORDERED: ACETAMINOPHEN 325 MG TABLET (FP) PO PRN ×2 (09:30)
[2021-12-31] MEDS ORDERED: hydrOXYzine PAMOATE 25 MG CAPSULE (FP) PO ONE (10:26)
[2021-12-31] MEDS ORDERED: IBUPROFEN 600 MG TABLET (FP) PO ONE (10:26)
[2021-12-31] MEDS: hydrOXYzine PAMOATE 25 MG CAPSULE (FP) PO PRN ×3 (10:32→22:24)
[2021-12-31] MEDS: IBUPROFEN 600 MG TABLET (FP) PO PRN (10:33)
[2021-12-31] MEDS: PRENATAL VITAMINS W/ FOLIC ACID TABLET (FP) PO SCH (10:34)
[2021-12-31] MEDS: TOLNAFTATE 1% CREAM 15 GM TUBE TP SCH ×2 (10:57→22:42)
[2021-12-31 11:14] LABS: HEMATOCRIT 37.9 % (35.4-49); HEMOGLOBIN 12.3 GM/dL (11.7-16.9); MCH 28.6 pg (25.7-33.7); MCHC 32.3 g/dl (32.0-35.9); MEAN CELL VOLUME 88.5 fl (80-96); MEAN PLT VOLUME 9.7 fl (7.5-11.1); PLATELET COUNT 195 10^3/uL (134-434); RBC 4.29 M/mm3 (4.00-5.60); RDW 13.9 % (11.9-15.9); WHITE BLOOD COUNT 8.9 K/mm3 (4.0-10.0)
[2021-12-31 11:24] LABS: CALCIUM 8.9 mg/dL (8.5-10.1)
[2021-12-31 11:25] LABS: ALBUMIN 3.7 g/dl (3.4-5.0); BLOOD UREA NITROGEN 12.4 mg/dL (7-18)
[2021-12-31 11:28] LABS: CREATININE 1.2 mg/dL (0.55-1.3)
[2021-12-31 11:29] LABS: TOT PROT 6.8 g/dl (6.4-8.2)
[2021-12-31 11:30] LABS: BILIRUBIN,TOTAL 0.4 mg/dL (0.2-1)
[2021-12-31 15:55] LABS: HIV INTERPRETATION NEGATIVE (NEGATIVE)
[2021-12-31] MEDS ORDERED: chlordiazePOXIDE HCL 25 MG CAPSULE PO PRN (17:34)
[2021-12-31] MEDS ORDERED: chlordiazePOXIDE HCL 25 MG CAPSULE PO ONE (17:54)
[2021-12-31] MEDS: METHOCARBAMOL 500 MG TABLET PO PRN (17:55)
[2021-12-31] MEDS: THIAMINE HCL 100 MG TABLET (FP) PO SCH (22:24)
[2021-12-31] MEDS: MELATONIN 5 MG TABLETS PO SCH (22:24)
[2021-12-31] MEDS: chlordiazePOXIDE HCL 25 MG CAPSULE PO SCH (22:25)
[2022-01-01] MEDS: chlordiazePOXIDE HCL 25 MG CAPSULE PO SCH ×4 (05:15→22:23)
[2022-01-01] MEDS: PRENATAL VITAMINS W/ FOLIC ACID TABLET (FP) PO SCH (10:15)
[2022-01-01] MEDS: TOLNAFTATE 1% CREAM 15 GM TUBE TP SCH ×2 (10:16→22:25)
[2022-01-01] MEDS: METHOCARBAMOL 500 MG TABLET PO PRN (10:19)
[2022-01-01] MEDS: THIAMINE HCL 100 MG TABLET (FP) PO SCH (22:23)
[2022-01-01] MEDS: MELATONIN 5 MG TABLETS PO SCH (22:23)
[2022-01-02] MEDS: chlordiazePOXIDE HCL 25 MG CAPSULE PO SCH ×4 (05:19→22:21)
[2022-01-02] MEDS: TOLNAFTATE 1% CREAM 15 GM TUBE TP SCH ×2 (10:34→22:21)
[2022-01-02] MEDS: METHOCARBAMOL 500 MG TABLET PO PRN (10:34)
[2022-01-02] MEDS: PRENATAL VITAMINS W/ FOLIC ACID TABLET (FP) PO SCH (10:36)
[2022-01-02] MEDS: IBUPROFEN 600 MG TABLET (FP) PO PRN (17:54)
[2022-01-02] MEDS: THIAMINE HCL 100 MG TABLET (FP) PO SCH (22:21)
[2022-01-02] MEDS: MELATONIN 5 MG TABLETS PO SCH (22:21)
[2022-01-03] MEDS ORDERED: chlordiazePOXIDE HCL 10 MG CAPSULE PO PRN
[2022-01-03] MEDS ORDERED: chlordiazePOXIDE HCL 10 MG CAPSULE PO SCH (05:00)
[2022-01-03 09:38] VITALS: BP 157/87; PULSE 97; RESP 19; TEMP 97.9
[2022-01-04] MEDS ORDERED: chlordiazePOXIDE HCL 10 MG CAPSULE PO SCH (05:00)
[2022-01-05] MEDS ORDERED: chlordiazePOXIDE HCL 10 MG CAPSULE PO ONE (05:00)
== END 2022-01-03 09:07 | disposition home or self-care (01) | DRG 774 ==
LOC: YASAS 08:14 → Y3N 10:14
PROVIDERS: ADMIT Allergy & Immunology; ATTEND Surgery
PROC: HZ2ZZZZ Detoxification Services for Substance Abuse Treatment (ICD-10-PCS; principal; 2021-12-31)
DX: F10.230 Alcohol dependence with withdrawal, uncomplicated (principal); F14.20 Cocaine dependence, uncomplicated; F13.230 Sedative, hypnotic or anxiolytic dependence with withdrawal, uncomplicated; F17.210 Nicotine dependence, cigarettes, uncomplicated; B35.3 Tinea pedis; R73.9 Hyperglycemia, unspecified
CPT/HCPCS: 36415; 80053; 85027; 86780; 87389; 87811; C9803-CS; U0003; U0005

== ENCOUNTER 2022-02-24 17:24 | Inpatient (IN) | payer BC ==
[2022-02-24 17:49] VITALS: BMI 26.4
[2022-02-24] MEDS ORDERED: ACETAMINOPHEN 325 MG TABLET (FP) PO PRN ×2 (18:12)
[2022-02-24] MEDS ORDERED: BENZOCAINE/MENTHOL (CHLORASEPTIC ) LOZENGE MM PRN (18:12)
[2022-02-24] MEDS ORDERED: DICYCLOMINE HCL 10 MG CAPSULE PO PRN (18:12)
[2022-02-24] MEDS ORDERED: NICOTINE POLACRILEX 2 MG GUM BUC PRN (18:12)
[2022-02-24] MEDS ORDERED: NALOXONE HCL (KLOXXADO) 8 MG SPRAY NS PRN (18:12)
[2022-02-24] MEDS ORDERED: METHOCARBAMOL 500 MG TABLET PO PRN (18:12)
[2022-02-24] MEDS ORDERED: chlordiazePOXIDE HCL 25 MG CAPSULE PO PRN (18:12)
[2022-02-24] MEDS ORDERED: POLYETHYLENE GLYCOL (HEALTHYLAX) 3350 17 GM PACKET PO PRN (18:12)
[2022-02-24] MEDS ORDERED: LOPERAMIDE HCL 2 MG CAPSULE PO PRN (18:12)
[2022-02-24] MEDS ORDERED: MAG HYDROX/AL HYDROX/SIMETH 30 ML UNIT-DOSE CUP PO PRN (18:12)
[2022-02-24] MEDS ORDERED: IBUPROFEN 600 MG TABLET (FP) PO PRN (18:12)
[2022-02-24] MEDS ORDERED: ONDANSETRON *ODT* 4 MG TABLET SL PRN (18:12)
[2022-02-24] MEDS ORDERED: NICOTINE 10 MG CARTRIDGE (INHALER) IH PRN (18:12)
[2022-02-24] MEDS ORDERED: MAGNESIUM HYDROX 2400MG/30ML ORAL SUSPENSION 30 ML CUP PO PRN (18:12)
[2022-02-24] MEDS ORDERED: IBUPROFEN 400 MG TABLET (FP) PO PRN (18:12)
[2022-02-24] MEDS ORDERED: BISMUTH SUBSALICYLATE 524 MG/30 ML PO PRN (18:12)
[2022-02-24] MEDS: MELATONIN 5 MG TABLETS PO SCH (23:13)
[2022-02-24] MEDS: THIAMINE HCL 100 MG TABLET (FP) PO SCH (23:13)
[2022-02-24] MEDS: chlordiazePOXIDE HCL 25 MG CAPSULE PO SCH (23:16)
[2022-02-25] MEDS: chlordiazePOXIDE HCL 25 MG CAPSULE PO SCH ×4 (05:22→22:23)
[2022-02-25] MEDS: PRENATAL VITAMINS W/ FOLIC ACID TABLET (FP) PO SCH (10:51)
[2022-02-25 11:45] LABS: HEMATOCRIT 38.9 % (35.4-49); HEMOGLOBIN 12.3 GM/dL (11.7-16.9); MCH 28.1 pg (25.7-33.7); MCHC 31.5 g/dl (32.0-35.9); MEAN PLT VOLUME 9.1 fl (7.5-11.1); PLATELET COUNT 195 10^3/uL (134-434); RBC 4.37 M/mm3 (4.00-5.60); RDW 14.4 % (11.9-15.9)
[2022-02-25 12:01] LABS: ALBUMIN 3.5 g/dl (3.4-5.0)
[2022-02-25 12:04] LABS: CREATININE 1.1 mg/dL (0.55-1.3)
[2022-02-25 12:06] LABS: BILIRUBIN,TOTAL 0.6 mg/dL (0.2-1); TOT PROT 6.6 g/dl (6.4-8.2)
[2022-02-25] MEDS: THIAMINE HCL 100 MG TABLET (FP) PO SCH (22:23)
[2022-02-25] MEDS: MELATONIN 5 MG TABLETS PO SCH (22:23)
[2022-02-26] MEDS: chlordiazePOXIDE HCL 25 MG CAPSULE PO SCH ×2 (05:25→10:12)
[2022-02-26 09:20] VITALS: BP 116/83; PULSE 90; RESP 16; TEMP 96.9
[2022-02-26] MEDS: PRENATAL VITAMINS W/ FOLIC ACID TABLET (FP) PO SCH (10:12)
[2022-02-27] MEDS ORDERED: chlordiazePOXIDE HCL 10 MG CAPSULE PO PRN
[2022-02-27] MEDS ORDERED: chlordiazePOXIDE HCL 10 MG CAPSULE PO SCH (05:00)
[2022-02-28] MEDS ORDERED: chlordiazePOXIDE HCL 10 MG CAPSULE PO SCH (05:00)
[2022-03-01] MEDS ORDERED: chlordiazePOXIDE HCL 10 MG CAPSULE PO ONE (05:00)
== END 2022-02-26 11:55 | disposition left against medical advice (07) | DRG 770 ==
LOC: YASAS 17:24 → Y6N 19:05
PROVIDERS: ADMIT Surgery; ATTEND Surgery
PROC: HZ2ZZZZ Detoxification Services for Substance Abuse Treatment (ICD-10-PCS; principal; 2022-02-24)
DX: F10.230 Alcohol dependence with withdrawal, uncomplicated (principal); F13.230 Sedative, hypnotic or anxiolytic dependence with withdrawal, uncomplicated; F14.20 Cocaine dependence, uncomplicated; F17.213 Nicotine dependence, cigarettes, with withdrawal; M54.50 Low back pain, unspecified; G89.29 Other chronic pain; B35.3 Tinea pedis; Z91.014 Allergy to mammalian meats; Z59.01 Sheltered homelessness
CPT/HCPCS: 36415; 80053; 85027; 86780; C9803-CS; U0003; U0005

== ENCOUNTER 2022-05-10 10:39 | Inpatient (IN) | payer OTHER ==
[2022-05-10 11:09] VITALS: BMI 24.5
[2022-05-10] MEDS ORDERED: chlordiazePOXIDE HCL 25 MG CAPSULE PO PRN (12:29)
[2022-05-10] MEDS ORDERED: IBUPROFEN 400 MG TABLET (FP) PO PRN (12:31)
[2022-05-10] MEDS ORDERED: ACETAMINOPHEN 325 MG TABLET (FP) PO PRN ×2 (12:31)
[2022-05-10] MEDS ORDERED: NICOTINE POLACRILEX 4 MG GUM BUC PRN (12:31)
[2022-05-10] MEDS ORDERED: POLYETHYLENE GLYCOL (HEALTHYLAX) 3350 17 GM PACKET PO PRN (12:31)
[2022-05-10] MEDS ORDERED: BENZOCAINE/MENTHOL (CHLORASEPTIC ) LOZENGE MM PRN (12:31)
[2022-05-10] MEDS ORDERED: NICOTINE 10 MG CARTRIDGE (INHALER) IH PRN (12:31)
[2022-05-10] MEDS ORDERED: IBUPROFEN 600 MG TABLET (FP) PO PRN (12:31)
[2022-05-10] MEDS ORDERED: DICYCLOMINE HCL 10 MG CAPSULE PO PRN (12:31)
[2022-05-10] MEDS ORDERED: NALOXONE HCL (KLOXXADO) 8 MG SPRAY NS PRN (12:31)
[2022-05-10] MEDS ORDERED: MAGNESIUM HYDROX 2400MG/30ML ORAL SUSPENSION 30 ML CUP PO PRN (12:31)
[2022-05-10] MEDS ORDERED: MAG HYDROX/AL HYDROX/SIMETH 30 ML UNIT-DOSE CUP PO PRN (12:31)
[2022-05-10] MEDS ORDERED: BISMUTH SUBSALICYLATE 262 MG/15 ML BTL PO PRN (12:31)
[2022-05-10] MEDS ORDERED: ONDANSETRON *ODT* 4 MG TABLET SL PRN (12:31)
[2022-05-10] MEDS ORDERED: LOPERAMIDE HCL 2 MG CAPSULE PO PRN (12:31)
[2022-05-10] MEDS: hydrOXYzine PAMOATE 25 MG CAPSULE (FP) PO PRN (14:08)
[2022-05-10] MEDS: METHOCARBAMOL 500 MG TABLET PO PRN (14:08)
[2022-05-10] MEDS: chlordiazePOXIDE HCL 25 MG CAPSULE PO SCH ×2 (17:26→22:43)
[2022-05-10] MEDS: MELATONIN 5 MG TABLETS PO SCH (22:40)
[2022-05-10] MEDS: THIAMINE HCL 100 MG TABLET (FP) PO SCH (22:41)
[2022-05-11] MEDS: chlordiazePOXIDE HCL 25 MG CAPSULE PO SCH ×4 (05:44→22:13)
[2022-05-11] MEDS: NICOTINE 21 MG/24 HOURS TOPICAL PATCH TD SCH (10:58)
[2022-05-11] MEDS: PRENATAL VITAMINS W/ FOLIC ACID TABLET (FP) PO SCH (11:04)
[2022-05-11 11:28] LABS: HEMATOCRIT 39.4 % (35.4-49); MCHC 32.9 g/dl (32.0-35.9); MEAN CELL VOLUME 85.1 fl (80-96); PLATELET COUNT 224 10^3/uL (134-434); RBC 4.63 M/mm3 (4.00-5.60); RDW 14.3 % (11.9-15.9); WHITE BLOOD COUNT 8.3 K/mm3 (4.0-10.0)
[2022-05-11 11:35] LABS: ALBUMIN 3.8 g/dl (3.4-5.0); BLOOD UREA NITROGEN 10.9 mg/dL (7-18); CREATININE 1.1 mg/dL (0.55-1.3)
[2022-05-11 11:36] LABS: TOT PROT 7.4 g/dl (6.4-8.2)
[2022-05-11 11:37] LABS: BILIRUBIN,TOTAL 0.4 mg/dL (0.2-1); CALCIUM 9.6 mg/dL (8.5-10.1)
[2022-05-11] MEDS: hydrOXYzine PAMOATE 25 MG CAPSULE (FP) PO PRN (22:11)
[2022-05-11] MEDS: MELATONIN 5 MG TABLETS PO SCH (22:12)
[2022-05-11] MEDS: METHOCARBAMOL 500 MG TABLET PO PRN (22:12)
[2022-05-11] MEDS: THIAMINE HCL 100 MG TABLET (FP) PO SCH (22:12)
[2022-05-12] MEDS: chlordiazePOXIDE HCL 25 MG CAPSULE PO SCH ×4 (05:46→22:00)
[2022-05-12] MEDS: PRENATAL VITAMINS W/ FOLIC ACID TABLET (FP) PO SCH (10:06)
[2022-05-12] MEDS: hydrOXYzine PAMOATE 25 MG CAPSULE (FP) PO PRN ×2 (10:06→21:57)
[2022-05-12] MEDS: METHOCARBAMOL 500 MG TABLET PO PRN ×2 (10:07→21:57)
[2022-05-12] MEDS: NICOTINE 21 MG/24 HOURS TOPICAL PATCH TD SCH (10:07)
[2022-05-12] MEDS: THIAMINE HCL 100 MG TABLET (FP) PO SCH (21:57)
[2022-05-12] MEDS: MELATONIN 5 MG TABLETS PO SCH (21:57)
[2022-05-13] MEDS ORDERED: chlordiazePOXIDE HCL 10 MG CAPSULE PO PRN
[2022-05-13] MEDS: chlordiazePOXIDE HCL 10 MG CAPSULE PO SCH ×4 (05:42→22:46)
[2022-05-13] MEDS: PRENATAL VITAMINS W/ FOLIC ACID TABLET (FP) PO SCH (10:32)
[2022-05-13] MEDS: NICOTINE 21 MG/24 HOURS TOPICAL PATCH TD SCH (10:34)
[2022-05-13] MEDS: LACTULOSE 20 GM/30 ML UDC (FOR ORAL USE ONLY) PO SCH ×2 (15:06→22:43)
[2022-05-13 16:08] LABS: HIV INTERPRETATION NEGATIVE (NEGATIVE)
[2022-05-13] MEDS: THIAMINE HCL 100 MG TABLET (FP) PO SCH (22:43)
[2022-05-13] MEDS: MELATONIN 5 MG TABLETS PO SCH (22:43)
[2022-05-14] MEDS ORDERED: chlordiazePOXIDE HCL 10 MG CAPSULE PO SCH (05:00)
[2022-05-14] MEDS: LACTULOSE 20 GM/30 ML UDC (FOR ORAL USE ONLY) PO SCH ×2 (06:18→13:19)
[2022-05-14] MEDS: PRENATAL VITAMINS W/ FOLIC ACID TABLET (FP) PO SCH (10:38)
[2022-05-14] MEDS: NICOTINE 21 MG/24 HOURS TOPICAL PATCH TD SCH (10:38)
[2022-05-14 11:13] VITALS: BP 126/74; PULSE 85; RESP 18; TEMP 97.8
[2022-05-15] MEDS ORDERED: chlordiazePOXIDE HCL 10 MG CAPSULE PO ONE (05:00)
== END 2022-05-14 10:40 | disposition home or self-care (01) | DRG 774 ==
LOC: YASAS 10:39 → Y3N 12:23
PROVIDERS: ADMIT Allergy & Immunology; ATTEND Surgery
PROC: HZ2ZZZZ Detoxification Services for Substance Abuse Treatment (ICD-10-PCS; principal; 2022-05-10)
DX: F10.230 Alcohol dependence with withdrawal, uncomplicated (principal); F14.20 Cocaine dependence, uncomplicated; F13.20 Sedative, hypnotic or anxiolytic dependence, uncomplicated; F17.213 Nicotine dependence, cigarettes, with withdrawal
CPT/HCPCS: 36415; 80053; 82140; 85027; 86780; 87389; 87811; C9803-CS; U0003; U0005

== ENCOUNTER 2022-06-09 12:35 | Inpatient (IN) | payer OTHER ==
[2022-06-09 13:38] VITALS: BMI 25.7
[2022-06-09] MEDS ORDERED: BISMUTH SUBSALICYLATE 524 MG/30 ML PO PRN (15:25)
[2022-06-09] MEDS ORDERED: ACETAMINOPHEN 325 MG TABLET (FP) PO PRN (15:25)
[2022-06-09] MEDS ORDERED: MAGNESIUM HYDROX 2400MG/30ML ORAL SUSPENSION 30 ML CUP PO PRN (15:25)
[2022-06-09] MEDS ORDERED: NICOTINE 10 MG CARTRIDGE (INHALER) IH PRN (15:25)
[2022-06-09] MEDS ORDERED: chlordiazePOXIDE HCL 25 MG CAPSULE PO PRN (15:25)
[2022-06-09] MEDS ORDERED: NALOXONE HCL (KLOXXADO) 8 MG SPRAY NS PRN (15:25)
[2022-06-09] MEDS ORDERED: BENZOCAINE/MENTHOL (CHLORASEPTIC ) LOZENGE MM PRN (15:25)
[2022-06-09] MEDS ORDERED: ONDANSETRON *ODT* 4 MG TABLET SL PRN (15:25)
[2022-06-09] MEDS ORDERED: LOPERAMIDE HCL 2 MG CAPSULE PO PRN (15:25)
[2022-06-09] MEDS ORDERED: NALOXONE HCL 0.4 MG/ML VIAL IM PRN (15:25)
[2022-06-09] MEDS ORDERED: IBUPROFEN 600 MG TABLET (FP) PO PRN (15:25)
[2022-06-09] MEDS ORDERED: BENZONATATE 200 MG CAPSULE PO PRN (15:25)
[2022-06-09] MEDS ORDERED: IBUPROFEN 400 MG TABLET (FP) PO PRN (15:25)
[2022-06-09] MEDS ORDERED: MAG HYDROX/AL HYDROX/SIMETH 30 ML UNIT-DOSE CUP PO PRN (15:25)
[2022-06-09] MEDS ORDERED: DICYCLOMINE HCL 10 MG CAPSULE PO PRN (15:25)
[2022-06-09] MEDS ORDERED: POLYETHYLENE GLYCOL (HEALTHYLAX) 3350 17 GM PACKET PO PRN (15:25)
[2022-06-09] MEDS ORDERED: guaiFENesin 600 MG TABLET.ER (FP) PO PRN (15:25)
[2022-06-09] MEDS: chlordiazePOXIDE HCL 25 MG CAPSULE PO SCH ×2 (17:31→22:47)
[2022-06-09] MEDS: NICOTINE 14 MG/24 HOURS TOPICAL PATCH TD SCH (17:35)
[2022-06-09] MEDS: PRENATAL VITAMINS W/ FOLIC ACID TABLET (FP) PO SCH (17:36)
[2022-06-09] MEDS: THIAMINE HCL 100 MG TABLET (FP) PO SCH (22:47)
[2022-06-09] MEDS: MELATONIN 5 MG TABLETS PO SCH (22:48)
[2022-06-10] MEDS: chlordiazePOXIDE HCL 25 MG CAPSULE PO SCH ×4 (04:58→22:14)
[2022-06-10] MEDS: PRENATAL VITAMINS W/ FOLIC ACID TABLET (FP) PO SCH (10:18)
[2022-06-10] MEDS: NICOTINE 14 MG/24 HOURS TOPICAL PATCH TD SCH (10:19)
[2022-06-10] MEDS: METHOCARBAMOL 500 MG TABLET PO PRN (10:21)
[2022-06-10 11:38] LABS: HEMATOCRIT 37.2 % (35.4-49); HEMOGLOBIN 12.3 GM/dL (11.7-16.9); MCH 28.5 pg (25.7-33.7); MEAN CELL VOLUME 86.2 fl (80-96); MEAN PLT VOLUME 9.4 fl (7.5-11.1); PLATELET COUNT 212 10^3/uL (134-434); RBC 4.31 M/mm3 (4.00-5.60); RDW 13.9 % (11.9-15.9); WHITE BLOOD COUNT 6.8 K/mm3 (4.0-10.0)
[2022-06-10 12:07] LABS: ALBUMIN 3.4 g/dl (3.4-5.0); BLOOD UREA NITROGEN 13.8 mg/dL (7-18)
[2022-06-10 12:08] LABS: CALCIUM 9.1 mg/dL (8.5-10.1)
[2022-06-10 12:12] LABS: BILIRUBIN,TOTAL 0.4 mg/dL (0.2-1); CREATININE 1.1 mg/dL (0.55-1.3); TOT PROT 6.5 g/dl (6.4-8.2)
[2022-06-10] MEDS: THIAMINE HCL 100 MG TABLET (FP) PO SCH (22:14)
[2022-06-10] MEDS: MELATONIN 5 MG TABLETS PO SCH (22:14)
[2022-06-11] MEDS: chlordiazePOXIDE HCL 25 MG CAPSULE PO SCH ×4 (05:08→22:05)
[2022-06-11] MEDS: hydrOXYzine PAMOATE 25 MG CAPSULE (FP) PO PRN (10:21)
[2022-06-11] MEDS: PRENATAL VITAMINS W/ FOLIC ACID TABLET (FP) PO SCH (10:21)
[2022-06-11] MEDS: NICOTINE 14 MG/24 HOURS TOPICAL PATCH TD SCH (10:21)
[2022-06-11] MEDS: METHOCARBAMOL 500 MG TABLET PO PRN (10:21)
[2022-06-11] MEDS: THIAMINE HCL 100 MG TABLET (FP) PO SCH (22:04)
[2022-06-11] MEDS: MELATONIN 5 MG TABLETS PO SCH (22:05)
[2022-06-12] MEDS ORDERED: chlordiazePOXIDE HCL 10 MG CAPSULE PO PRN
[2022-06-12] MEDS: chlordiazePOXIDE HCL 10 MG CAPSULE PO SCH ×4 (05:12→22:21)
[2022-06-12] MEDS: METHOCARBAMOL 500 MG TABLET PO PRN (10:06)
[2022-06-12] MEDS: hydrOXYzine PAMOATE 25 MG CAPSULE (FP) PO PRN (10:06)
[2022-06-12] MEDS: NICOTINE 14 MG/24 HOURS TOPICAL PATCH TD SCH (10:06)
[2022-06-12] MEDS: PRENATAL VITAMINS W/ FOLIC ACID TABLET (FP) PO SCH (10:06)
[2022-06-12] MEDS: MELATONIN 5 MG TABLETS PO SCH (22:21)
[2022-06-12] MEDS: THIAMINE HCL 100 MG TABLET (FP) PO SCH (22:21)
[2022-06-13] MEDS ORDERED: chlordiazePOXIDE HCL 10 MG CAPSULE PO SCH (05:00)
[2022-06-13 06:15] VITALS: TEMP 97.1
[2022-06-13 09:27] VITALS: BP 137/75; PULSE 89; RESP 18
[2022-06-13] MEDS: PRENATAL VITAMINS W/ FOLIC ACID TABLET (FP) PO SCH (10:30)
[2022-06-13] MEDS: NICOTINE 14 MG/24 HOURS TOPICAL PATCH TD SCH (10:30)
[2022-06-14] MEDS ORDERED: chlordiazePOXIDE HCL 10 MG CAPSULE PO ONE (05:00)
== END 2022-06-13 10:45 | disposition home or self-care (01) | DRG 774 ==
LOC: YASAS 12:35 → Y6N 16:46
PROVIDERS: ADMIT Allergy & Immunology; ATTEND Surgery
PROC: HZ2ZZZZ Detoxification Services for Substance Abuse Treatment (ICD-10-PCS; principal; 2022-06-09)
DX: F10.230 Alcohol dependence with withdrawal, uncomplicated (principal); F14.20 Cocaine dependence, uncomplicated; F13.20 Sedative, hypnotic or anxiolytic dependence, uncomplicated; F17.210 Nicotine dependence, cigarettes, uncomplicated; B35.3 Tinea pedis; M54.50 Low back pain, unspecified; G89.29 Other chronic pain; Z59.02 Unsheltered homelessness; Z56.0 Unemployment, unspecified
CPT/HCPCS: 36415; 80053; 85027; 86780; C9803-CS; U0003; U0005

== ENCOUNTER 2022-07-15 10:28 | Inpatient (IN) | payer OTHER ==
[2022-07-15 11:10] VITALS: BMI 25.7
[2022-07-15] MEDS ORDERED: IBUPROFEN 400 MG TABLET (FP) PO PRN (12:46)
[2022-07-15] MEDS ORDERED: LOPERAMIDE HCL 2 MG CAPSULE PO PRN (12:46)
[2022-07-15] MEDS ORDERED: NALOXONE HCL 0.4 MG/ML VIAL IM PRN (12:46)
[2022-07-15] MEDS ORDERED: hydrOXYzine PAMOATE 25 MG CAPSULE (FP) PO PRN (12:46)
[2022-07-15] MEDS ORDERED: NALOXONE HCL (KLOXXADO) 8 MG SPRAY NS PRN (12:46)
[2022-07-15] MEDS ORDERED: MAGNESIUM HYDROX 2400MG/30ML ORAL SUSPENSION 30 ML CUP PO PRN (12:46)
[2022-07-15] MEDS ORDERED: POLYETHYLENE GLYCOL (HEALTHYLAX) 3350 17 GM PACKET PO PRN (12:46)
[2022-07-15] MEDS ORDERED: guaiFENesin 600 MG TABLET.ER (FP) PO PRN (12:46)
[2022-07-15] MEDS ORDERED: ACETAMINOPHEN 325 MG TABLET (FP) PO PRN (12:46)
[2022-07-15] MEDS ORDERED: NICOTINE 10 MG CARTRIDGE (INHALER) IH PRN (12:46)
[2022-07-15] MEDS ORDERED: BENZONATATE 200 MG CAPSULE PO PRN (12:46)
[2022-07-15] MEDS ORDERED: BISMUTH SUBSALICYLATE 524 MG/30 ML PO PRN (12:46)
[2022-07-15] MEDS ORDERED: IBUPROFEN 600 MG TABLET (FP) PO PRN (12:46)
[2022-07-15] MEDS ORDERED: BENZOCAINE/MENTHOL (CHLORASEPTIC ) LOZENGE MM PRN (12:46)
[2022-07-15] MEDS ORDERED: DICYCLOMINE HCL 10 MG CAPSULE PO PRN (12:46)
[2022-07-15] MEDS ORDERED: chlordiazePOXIDE HCL 25 MG CAPSULE PO PRN (12:46)
[2022-07-15] MEDS ORDERED: ONDANSETRON *ODT* 4 MG TABLET SL PRN (12:46)
[2022-07-15] MEDS ORDERED: MAG HYDROX/AL HYDROX/SIMETH 30 ML UNIT-DOSE CUP PO PRN (12:46)
[2022-07-15] MEDS ORDERED: METHOCARBAMOL 500 MG TABLET PO PRN (12:46)
[2022-07-15] MEDS: PRENATAL VITAMINS W/ FOLIC ACID TABLET (FP) PO SCH ×2 (14:06→14:15)
[2022-07-15 15:35] LABS: HEMATOCRIT 39.1 % (35.4-49); HEMOGLOBIN 12.7 GM/dL (11.7-16.9); MCH 28.3 pg (25.7-33.7); MCHC 32.4 g/dl (32.0-35.9); MEAN CELL VOLUME 87.1 fl (80-96); MEAN PLT VOLUME 9.1 fl (7.5-11.1); PLATELET COUNT 236 10^3/uL (134-434); RBC 4.49 M/mm3 (4.00-5.60); RDW 14.4 % (11.9-15.9); WHITE BLOOD COUNT 8.6 K/mm3 (4.0-10.0)
[2022-07-15 16:30] LABS: POTASSIUM 4.4 mmol/L (3.5-5.1)
[2022-07-15 16:34] LABS: CALCIUM 9.2 mg/dL (8.5-10.1)
[2022-07-15 16:35] LABS: ALBUMIN 3.9 g/dl (3.4-5.0); BLOOD UREA NITROGEN 15.9 mg/dL (7-18)
[2022-07-15 16:38] LABS: CREATININE 1.3 mg/dL (0.55-1.3)
[2022-07-15 16:39] LABS: BILIRUBIN,TOTAL 0.6 mg/dL (0.2-1)
[2022-07-15 16:40] LABS: TOT PROT 7.3 g/dl (6.4-8.2)
[2022-07-15] MEDS: chlordiazePOXIDE HCL 25 MG CAPSULE PO SCH ×2 (17:00→22:23)
[2022-07-15] MEDS: MELATONIN 5 MG TABLETS PO SCH (22:23)
[2022-07-15] MEDS: THIAMINE HCL 100 MG TABLET (FP) PO SCH (22:23)
[2022-07-16] MEDS: chlordiazePOXIDE HCL 25 MG CAPSULE PO SCH ×4 (05:53→22:32)
[2022-07-16] MEDS: PRENATAL VITAMINS W/ FOLIC ACID TABLET (FP) PO SCH (10:42)
[2022-07-16] MEDS: LACTULOSE 20 GM/30 ML UDC (FOR ORAL USE ONLY) PO SCH ×2 (17:10→22:31)
[2022-07-16] MEDS: MELATONIN 5 MG TABLETS PO SCH (22:31)
[2022-07-16] MEDS: THIAMINE HCL 100 MG TABLET (FP) PO SCH (22:32)
[2022-07-17] MEDS: chlordiazePOXIDE HCL 25 MG CAPSULE PO SCH ×4 (05:25→23:24)
[2022-07-17] MEDS: LACTULOSE 20 GM/30 ML UDC (FOR ORAL USE ONLY) PO SCH ×4 (10:25→23:23)
[2022-07-17] MEDS: PRENATAL VITAMINS W/ FOLIC ACID TABLET (FP) PO SCH (10:25)
[2022-07-17 20:58] VITALS: RESP 16
[2022-07-17] MEDS: MELATONIN 5 MG TABLETS PO SCH (23:23)
[2022-07-17] MEDS: THIAMINE HCL 100 MG TABLET (FP) PO SCH (23:24)
[2022-07-18] MEDS ORDERED: chlordiazePOXIDE HCL 10 MG CAPSULE PO PRN
[2022-07-18] MEDS ORDERED: chlordiazePOXIDE HCL 10 MG CAPSULE PO SCH (05:00)
[2022-07-18 06:34] VITALS: BP 140/85; PULSE 66; TEMP 97.5
[2022-07-19] MEDS ORDERED: chlordiazePOXIDE HCL 10 MG CAPSULE PO SCH (05:00)
[2022-07-20] MEDS ORDERED: chlordiazePOXIDE HCL 10 MG CAPSULE PO ONE (05:00)
== END 2022-07-18 07:30 | disposition home or self-care (01) | DRG 774 ==
LOC: YASAS 10:28 → Y6N 14:02
PROVIDERS: ADMIT Allergy & Immunology; ATTEND Surgery
PROC: HZ2ZZZZ Detoxification Services for Substance Abuse Treatment (ICD-10-PCS; principal; 2022-07-15)
DX: F10.230 Alcohol dependence with withdrawal, uncomplicated (principal); F14.20 Cocaine dependence, uncomplicated; F17.213 Nicotine dependence, cigarettes, with withdrawal; B35.3 Tinea pedis; M54.50 Low back pain, unspecified; G89.29 Other chronic pain; R73.9 Hyperglycemia, unspecified; R79.89 Other specified abnormal findings of blood chemistry
CPT/HCPCS: 36415; 80053; 82140; 85027; 86780; C9803-CS; U0003; U0005

== ENCOUNTER 2022-11-09 11:04 | Inpatient (IN) | payer OTHER ==
[2022-11-09 11:44] VITALS: BMI 27.0
[2022-11-09] MEDS ORDERED: BISMUTH SUBSALICYLATE 524 MG/30 ML PO PRN (13:13)
[2022-11-09] MEDS ORDERED: NALOXONE HCL 0.4 MG/ML VIAL IM PRN (13:13)
[2022-11-09] MEDS ORDERED: NALOXONE HCL (KLOXXADO) 8 MG SPRAY NS PRN (13:13)
[2022-11-09] MEDS ORDERED: hydrOXYzine PAMOATE 25 MG CAPSULE (FP) PO PRN (13:13)
[2022-11-09] MEDS ORDERED: ACETAMINOPHEN 325 MG TABLET (FP) PO PRN (13:13)
[2022-11-09] MEDS ORDERED: DICYCLOMINE HCL 10 MG CAPSULE PO PRN (13:13)
[2022-11-09] MEDS ORDERED: IBUPROFEN 600 MG TABLET (FP) PO PRN (13:13)
[2022-11-09] MEDS ORDERED: LOPERAMIDE HCL 2 MG CAPSULE PO PRN (13:13)
[2022-11-09] MEDS ORDERED: ONDANSETRON *ODT* 4 MG TABLET SL PRN (13:13)
[2022-11-09] MEDS ORDERED: POLYETHYLENE GLYCOL (HEALTHYLAX) 3350 17 GM PACKET PO PRN (13:13)
[2022-11-09] MEDS ORDERED: LORazepam 1 MG TABLET PO PRN (13:13)
[2022-11-09] MEDS ORDERED: IBUPROFEN 400 MG TABLET (FP) PO PRN (13:13)
[2022-11-09] MEDS ORDERED: MAG HYDROX/AL HYDROX/SIMETH 30 ML UNIT-DOSE CUP PO PRN (13:13)
[2022-11-09] MEDS ORDERED: MAGNESIUM HYDROX 2400MG/30ML ORAL SUSPENSION 30 ML CUP PO PRN (13:13)
[2022-11-09] MEDS ORDERED: BENZONATATE 200 MG CAPSULE PO PRN (13:13)
[2022-11-09] MEDS ORDERED: BENZOCAINE/MENTHOL (CHLORASEPTIC ) LOZENGE MM PRN (13:13)
[2022-11-09] MEDS ORDERED: guaiFENesin 600 MG TABLET.ER (FP) PO PRN (13:13)
[2022-11-09] MEDS ORDERED: LORazepam 2 MG TABLET ONE (13:48)
[2022-11-09] MEDS ORDERED: PRENATAL VITAMINS W/ FOLIC ACID TABLET (FP) PO ONE (13:49)
[2022-11-09] MEDS: PRENATAL VITAMINS W/ FOLIC ACID TABLET (FP) PO SCH (13:52)
[2022-11-09] MEDS ORDERED: LORazepam 2 MG TABLET PO ONE (14:00)
[2022-11-09] MEDS: NICOTINE 14 MG/24 HOURS TOPICAL PATCH TD SCH (14:47)
[2022-11-09] MEDS ORDERED: NICOTINE POLACRILEX 2 MG GUM BC PRN (14:50)
[2022-11-09] MEDS: LORazepam 2 MG TABLET PO SCH ×2 (17:08→22:11)
[2022-11-09 17:17] LABS: HEMOGLOBIN 12.6 GM/dL (11.7-16.9); MCH 27.9 pg (25.7-33.7); MCHC 31.5 g/dl (32.0-35.9); MEAN CELL VOLUME 88.7 fl (80-96); MEAN PLT VOLUME 10.4 fl (7.5-11.1); PLATELET COUNT 207 10^3/uL (134-434); RBC 4.51 M/mm3 (4.00-5.60); RDW 14.1 % (11.9-15.9); WHITE BLOOD COUNT 7.6 K/mm3 (4.0-10.0)
[2022-11-09 17:22] LABS: POTASSIUM 4.1 mmol/L (3.5-5.1)
[2022-11-09 17:25] LABS: CALCIUM 9.4 mg/dL (8.5-10.1)
[2022-11-09 17:26] LABS: ALBUMIN 3.6 g/dl (3.4-5.0); BLOOD UREA NITROGEN 10.4 mg/dL (7-18)
[2022-11-09 17:29] LABS: CREATININE 1.2 mg/dL (0.55-1.3)
[2022-11-09 17:31] LABS: BILIRUBIN,TOTAL 0.3 mg/dL (0.2-1); TOT PROT 6.9 g/dl (6.4-8.2)
[2022-11-09 18:18] LABS: HIV INTERPRETATION NEGATIVE (NEGATIVE)
[2022-11-09] MEDS: THIAMINE HCL 100 MG TABLET (FP) PO SCH (22:11)
[2022-11-09] MEDS: MELATONIN 5 MG TABLETS PO SCH (22:12)
[2022-11-10] MEDS: LORazepam 2 MG TABLET PO SCH ×4 (05:21→22:00)
[2022-11-10] MEDS: METHOCARBAMOL 500 MG TABLET PO PRN (05:23)
[2022-11-10] MEDS: PRENATAL VITAMINS W/ FOLIC ACID TABLET (FP) PO SCH (10:19)
[2022-11-10] MEDS: NICOTINE 14 MG/24 HOURS TOPICAL PATCH TD SCH (10:19)
[2022-11-10] MEDS: LACTULOSE 20 GM/30 ML UDC (FOR ORAL USE ONLY) PO SCH ×3 (14:30→22:00)
[2022-11-10] MEDS: THIAMINE HCL 100 MG TABLET (FP) PO SCH (22:00)
[2022-11-10] MEDS: MELATONIN 5 MG TABLETS PO SCH (22:01)
[2022-11-11] MEDS: LORazepam 1 MG TABLET PO SCH ×2 (05:16→10:21)
[2022-11-11 06:17] VITALS: PULSE 72
[2022-11-11 09:29] VITALS: BP 157/97; RESP 18; TEMP 97.9
[2022-11-11] MEDS: LACTULOSE 20 GM/30 ML UDC (FOR ORAL USE ONLY) PO SCH (10:21)
[2022-11-11] MEDS: NICOTINE 14 MG/24 HOURS TOPICAL PATCH TD SCH (10:21)
[2022-11-11] MEDS: METHOCARBAMOL 500 MG TABLET PO PRN (10:21)
[2022-11-11] MEDS: PRENATAL VITAMINS W/ FOLIC ACID TABLET (FP) PO SCH (10:21)
[2022-11-12] MEDS ORDERED: LORazepam 0.5 MG TABLET PO PRN
[2022-11-12] MEDS ORDERED: LORazepam 0.5 MG TABLET PO SCH (05:00)
[2022-11-13] MEDS ORDERED: LORazepam 0.5 MG TABLET PO ONE (05:00)
== END 2022-11-11 11:24 | disposition left against medical advice (07) | DRG 770 ==
LOC: YASAS 11:04 → Y6N 14:24
PROVIDERS: ADMIT Allergy & Immunology; ATTEND Surgery
PROC: HZ2ZZZZ Detoxification Services for Substance Abuse Treatment (ICD-10-PCS; principal; 2022-11-09)
DX: F10.230 Alcohol dependence with withdrawal, uncomplicated (principal); F14.20 Cocaine dependence, uncomplicated; F17.213 Nicotine dependence, cigarettes, with withdrawal; M54.50 Low back pain, unspecified; G89.29 Other chronic pain; B35.3 Tinea pedis; R79.89 Other specified abnormal findings of blood chemistry
CPT/HCPCS: 36415; 80053; 82140; 83036; 85027; 86780; 86803; 87389; 87635; 87811

== ENCOUNTER 2023-03-07 12:11 | Inpatient (IN) | payer OTHER ==
[2023-03-07 13:14] VITALS: BMI 26.7
[2023-03-07] MEDS ORDERED: IBUPROFEN 400 MG TABLET (FP) PO PRN (16:02)
[2023-03-07] MEDS ORDERED: NALOXONE HCL (KLOXXADO) 8 MG SPRAY NS PRN (16:02)
[2023-03-07] MEDS ORDERED: BISMUTH SUBSALICYLATE 524 MG/30 ML PO PRN (16:02)
[2023-03-07] MEDS ORDERED: BENZOCAINE/MENTHOL (CHLORASEPTIC ) LOZENGE MM PRN (16:02)
[2023-03-07] MEDS ORDERED: hydrOXYzine PAMOATE 25 MG CAPSULE (FP) PO PRN (16:02)
[2023-03-07] MEDS ORDERED: MAGNESIUM HYDROX 2400MG/30ML ORAL SUSPENSION 30 ML CUP PO PRN (16:02)
[2023-03-07] MEDS ORDERED: MAG HYDROX/AL HYDROX/SIMETH 30 ML UNIT-DOSE CUP PO PRN (16:02)
[2023-03-07] MEDS ORDERED: ONDANSETRON *ODT* 4 MG TABLET SL PRN (16:02)
[2023-03-07] MEDS ORDERED: IBUPROFEN 600 MG TABLET (FP) PO PRN (16:02)
[2023-03-07] MEDS ORDERED: NICOTINE POLACRILEX 2 MG GUM BUC PRN (16:02)
[2023-03-07] MEDS ORDERED: BENZONATATE 200 MG CAPSULE PO PRN (16:02)
[2023-03-07] MEDS ORDERED: NALOXONE HCL 0.4 MG/ML VIAL IM PRN (16:02)
[2023-03-07] MEDS ORDERED: ACETAMINOPHEN 325 MG TABLET (FP) PO PRN (16:02)
[2023-03-07] MEDS ORDERED: guaiFENesin 600 MG TABLET.ER (FP) PO PRN (16:02)
[2023-03-07] MEDS ORDERED: LOPERAMIDE HCL 2 MG CAPSULE PO PRN (16:02)
[2023-03-07] MEDS ORDERED: POLYETHYLENE GLYCOL (HEALTHYLAX) 3350 17 GM PACKET PO PRN (16:02)
[2023-03-07] MEDS ORDERED: THIAMINE HCL 100 MG TABLET (FP) PO SCH (22:00)
[2023-03-07] MEDS ORDERED: MELATONIN 5 MG TABLETS PO SCH (22:00)
[2023-03-07] MEDS: METHOCARBAMOL 500 MG TABLET PO PRN (22:22)
[2023-03-08] MEDS ORDERED: NICOTINE 21 MG/24 HOURS TOPICAL PATCH TD SCH (10:00)
[2023-03-08] MEDS ORDERED: PRENATAL VITAMINS W/ FOLIC ACID TABLET (FP) PO SCH (10:00)
[2023-03-08] MEDS ORDERED: LORazepam 1 MG TABLET PO PRN (10:06)
[2023-03-08] MEDS: METHOCARBAMOL 500 MG TABLET PO PRN ×2 (10:09→17:08)
[2023-03-08] MEDS: LORazepam 2 MG TABLET PO SCH ×2 (10:46→17:07)
[2023-03-08 12:20] LABS: CHLORIDE 114 mmol/L (98-107); POTASSIUM 4.2 mmol/L (3.5-5.1); SODIUM 145 mmol/L (136-145)
[2023-03-08 12:29] LABS: ALK PHOS 60 U/L (45-117)
[2023-03-08 12:31] LABS: HEMATOCRIT 37.9 % (35.4-49); HEMOGLOBIN 12.2 GM/dL (11.7-16.9); MCH 28.7 pg (25.7-33.7); MCHC 32.1 g/dl (32.0-35.9); MEAN CELL VOLUME 89.5 fl (80-96); MEAN PLT VOLUME 9.2 fl (7.5-11.1); PLATELET COUNT 195 10^3/uL (134-434); RBC 4.24 M/mm3 (4.00-5.60); RDW 13.4 % (11.9-15.9); WHITE BLOOD COUNT 7.3 K/mm3 (4.0-10.0)
[2023-03-08 13:21] LABS: HIV INTERPRETATION NEGATIVE (NEGATIVE)
[2023-03-08 16:44] VITALS: BP 135/75; PULSE 75; RESP 18; TEMP 97.3
[2023-03-08 23:34] LABS: ALBUMIN 3.4 g/dl (3.4-5.0); ANION GAP 5 mmol/L (4-13); BLOOD UREA NITROGEN 12.1 mg/dL (7-18); CALCIUM 9.2 mg/dL (8.5-10.1); CO2 25 mmol/L (21-32); GLUCOSE,RANDOM 121 mg/dL (74-106)
[2023-03-08 23:37] LABS: CREATININE 1.1 mg/dL (0.55-1.3); SGOT/AST 9 U/L (15-37)
[2023-03-08 23:38] LABS: SGPT/ALT 15 U/L (13-61)
[2023-03-08 23:39] LABS: BILIRUBIN,TOTAL 0.3 mg/dL (0.2-1); TOT PROT 6.2 g/dl (6.4-8.2)
[2023-03-10] MEDS ORDERED: LORazepam 1 MG TABLET PO SCH (05:00)
[2023-03-11] MEDS ORDERED: LORazepam 0.5 MG TABLET PO PRN
[2023-03-11] MEDS ORDERED: LORazepam 0.5 MG TABLET PO SCH (05:00)
[2023-03-12] MEDS ORDERED: LORazepam 0.5 MG TABLET PO ONE (05:00)
== END 2023-03-08 18:07 | disposition left against medical advice (07) | DRG 770 ==
LOC: YASAS 12:11 → Y3N 16:27
PROVIDERS: ADMIT Allergy & Immunology; ATTEND Surgery
PROC: HZ2ZZZZ Detoxification Services for Substance Abuse Treatment (ICD-10-PCS; principal; 2023-03-07)
DX: F10.230 Alcohol dependence with withdrawal, uncomplicated (principal); F13.230 Sedative, hypnotic or anxiolytic dependence with withdrawal, uncomplicated; F14.20 Cocaine dependence, uncomplicated; F17.210 Nicotine dependence, cigarettes, uncomplicated; M54.50 Low back pain, unspecified; G89.29 Other chronic pain; B35.3 Tinea pedis; Z56.0 Unemployment, unspecified; Z59.00 Homelessness unspecified
CPT/HCPCS: 36415; 80053; 80307; 85027; 86780; 87389; 87635

== ENCOUNTER 2023-09-18 10:12 | Inpatient (IN) | payer OTHER ==
[2023-09-18 11:04] VITALS: BMI 26.2
[2023-09-18] MEDS ORDERED: LOPERAMIDE HCL 2 MG CAPSULE PO PRN (11:31)
[2023-09-18] MEDS ORDERED: ACETAMINOPHEN 325 MG TABLET (FP) PO PRN (11:31)
[2023-09-18] MEDS ORDERED: BENZOCAINE/MENTHOL (CHLORASEPTIC ) LOZENGE MM PRN (11:31)
[2023-09-18] MEDS ORDERED: MAG HYDROX/AL HYDROX/SIMETH 30 ML UNIT-DOSE CUP PO PRN (11:31)
[2023-09-18] MEDS ORDERED: BENZONATATE 200 MG CAPSULE PO PRN (11:31)
[2023-09-18] MEDS ORDERED: BISMUTH SUBSALICYLATE 262 MG/15 ML BTL PO PRN (11:31)
[2023-09-18] MEDS ORDERED: IBUPROFEN 600 MG TABLET (FP) PO PRN (11:31)
[2023-09-18] MEDS ORDERED: guaiFENesin 600 MG TABLET.ER (FP) PO PRN (11:31)
[2023-09-18] MEDS ORDERED: MAGNESIUM HYDROX 2400MG/30ML ORAL SUSPENSION 30 ML CUP PO PRN (11:31)
[2023-09-18] MEDS ORDERED: DICYCLOMINE HCL 10 MG CAPSULE PO PRN (11:31)
[2023-09-18] MEDS ORDERED: POLYETHYLENE GLYCOL (HEALTHYLAX) 3350 17 GM PACKET PO PRN (11:31)
[2023-09-18] MEDS ORDERED: NICOTINE POLACRILEX 2 MG GUM BUC PRN (11:44)
[2023-09-18] MEDS ORDERED: ONDANSETRON *ODT* 4 MG TABLET ONE (12:47)
[2023-09-18] MEDS ORDERED: IBUPROFEN 400 MG TABLET (FP) PO ONE (12:47)
[2023-09-18] MEDS: IBUPROFEN 400 MG TABLET (FP) PO PRN (12:48)
[2023-09-18] MEDS: ONDANSETRON *ODT* 4 MG TABLET SL PRN (12:49)
[2023-09-18] MEDS ORDERED: LORazepam 1 MG TABLET PO PRN (15:08)
[2023-09-18] MEDS: LORazepam 2 MG TABLET PO SCH (16:52)
[2023-09-18] MEDS: MELATONIN 5 MG TABLETS PO SCH (22:20)
[2023-09-18] MEDS: levETIRAcetam 500 MG TABLET (FP) PO SCH (22:21)
[2023-09-18] MEDS: THIAMINE 100 MG TABLET PO SCH (22:21)
[2023-09-19] MEDS: LORazepam 1 MG TABLET PO SCH (05:31)
[2023-09-19] MEDS: PRENATAL VITAMINS W/ FOLIC ACID TABLET (FP) PO SCH (10:17)
[2023-09-19 12:05] LABS: HEMATOCRIT 36.4 % (35.4-49); HEMOGLOBIN 11.7 GM/dL (11.7-16.9); MCHC 32.2 g/dl (32.0-35.9); MEAN PLT VOLUME 9.4 fl (7.5-11.1); PLATELET COUNT 201 10^3/uL (134-434); RBC 4.05 M/mm3 (4.00-5.60); RDW 13.9 % (11.9-15.9); WHITE BLOOD COUNT 7.7 K/mm3 (4.0-10.0)
[2023-09-19 12:23] LABS: POTASSIUM 4.2 mmol/L (3.5-5.1)
[2023-09-19 12:37] LABS: ALBUMIN 3.3 g/dl (3.4-5.0); BLOOD UREA NITROGEN 13.4 mg/dL (7-18); CALCIUM 8.6 mg/dL (8.5-10.1)
[2023-09-19 12:42] LABS: BILIRUBIN,TOTAL 0.4 mg/dL (0.2-1); TOT PROT 6.3 g/dl (6.4-8.2)
[2023-09-19 17:09] LABS: HIV INTERPRETATION NEGATIVE (NEGATIVE)
[2023-09-19] MEDS: METHOCARBAMOL 500 MG TABLET PO PRN (22:13)
[2023-09-20] MEDS: LORazepam 0.5 MG TABLET PO SCH (05:30)
[2023-09-20] MEDS: LORazepam 0.5 MG TABLET PO PRN (07:24)
[2023-09-21] MEDS: hydrOXYzine PAMOATE 25 MG CAPSULE (FP) PO PRN (04:03)
[2023-09-21] MEDS ORDERED: LORazepam 0.5 MG TABLET PO ONE (05:00)
[2023-09-21] MEDS: LORazepam 0.5 MG TABLET PO SCH (05:29)
[2023-09-21 06:04] VITALS: TEMP 97.7
[2023-09-21 08:51] VITALS: BP 133/88; PULSE 78; RESP 18
[2023-09-22] MEDS ORDERED: LORazepam 0.5 MG TABLET PO ONE (06:00)
== END 2023-09-21 12:07 | disposition home or self-care (01) | DRG 774 ==
LOC: YASAS 10:12 → Y6N 12:58
PROVIDERS: ADMIT Allergy & Immunology; ATTEND Surgery
PROC: HZ2ZZZZ Detoxification Services for Substance Abuse Treatment (ICD-10-PCS; principal; 2023-09-18)
DX: F10.230 Alcohol dependence with withdrawal, uncomplicated (principal); F13.230 Sedative, hypnotic or anxiolytic dependence with withdrawal, uncomplicated; F14.20 Cocaine dependence, uncomplicated; F17.210 Nicotine dependence, cigarettes, uncomplicated; G40.909 Epilepsy, unspecified, not intractable, without status epilepticus; I10 Essential (primary) hypertension; R73.9 Hyperglycemia, unspecified; Z59.00 Homelessness unspecified
CPT/HCPCS: 36415; 80053; 80305; 83036; 85027; 86780; 86803; 87389; 87811; Q0162

== ENCOUNTER 2023-11-24 09:35 | Inpatient (IN) | payer OTHER ==
[2023-11-24 09:57] VITALS: BMI 25.9
[2023-11-24] MEDS ORDERED: IBUPROFEN 600 MG TABLET (FP) PO PRN (10:16)
[2023-11-24] MEDS ORDERED: POLYETHYLENE GLYCOL (HEALTHYLAX) 3350 17 GM PACKET PO PRN (10:16)
[2023-11-24] MEDS ORDERED: BISMUTH SUBSALICYLATE 524 MG/30 ML PO PRN (10:16)
[2023-11-24] MEDS ORDERED: BENZONATATE 200 MG CAPSULE PO PRN (10:16)
[2023-11-24] MEDS ORDERED: NALOXONE HCL 0.4 MG/ML VIAL IM PRN (10:16)
[2023-11-24] MEDS ORDERED: ONDANSETRON *ODT* 4 MG TABLET SL PRN (10:16)
[2023-11-24] MEDS ORDERED: MAGNESIUM HYDROX 2400MG/30ML ORAL SUSPENSION 30 ML CUP PO PRN (10:16)
[2023-11-24] MEDS ORDERED: IBUPROFEN 400 MG TABLET (FP) PO PRN (10:16)
[2023-11-24] MEDS ORDERED: DICYCLOMINE HCL 10 MG CAPSULE PO PRN (10:16)
[2023-11-24] MEDS ORDERED: NALOXONE (NARCAN) HCL 4 MG/0.1 ML SPRAY NS PRN (10:16)
[2023-11-24] MEDS ORDERED: ACETAMINOPHEN 325 MG TABLET (FP) PO PRN (10:16)
[2023-11-24] MEDS ORDERED: BENZOCAINE/MENTHOL (CHLORASEPTIC ) LOZENGE MM PRN (10:16)
[2023-11-24] MEDS ORDERED: guaiFENesin 600 MG TABLET.ER (FP) PO PRN (10:16)
[2023-11-24] MEDS ORDERED: MAG HYDROX/AL HYDROX/SIMETH 30 ML UNIT-DOSE CUP PO PRN (10:16)
[2023-11-24] MEDS ORDERED: LOPERAMIDE HCL 2 MG CAPSULE PO PRN (10:16)
[2023-11-24] MEDS ORDERED: NICOTINE 21 MG/24 HOURS TOPICAL PATCH ONE (10:44)
[2023-11-24] MEDS ORDERED: PRENATAL VITAMINS W/ FOLIC ACID TABLET (FP) PO ONE (10:44)
[2023-11-24] MEDS: NICOTINE 21 MG/24 HOURS TOPICAL PATCH TD SCH (10:47)
[2023-11-24] MEDS: PRENATAL VITAMINS W/ FOLIC ACID TABLET (FP) PO SCH (10:47)
[2023-11-24] MEDS: hydrOXYzine PAMOATE 25 MG CAPSULE (FP) PO PRN (17:04)
[2023-11-24] MEDS: METHOCARBAMOL 500 MG TABLET PO PRN (17:04)
[2023-11-24] MEDS: MELATONIN 5 MG TABLETS PO SCH (22:12)
[2023-11-24] MEDS: THIAMINE 100 MG TABLET PO SCH (22:12)
[2023-11-25 10:24] LABS: POTASSIUM 4.4 mmol/L (3.5-5.1)
[2023-11-25 10:26] LABS: CALCIUM 9.6 mg/dL (8.5-10.1)
[2023-11-25 10:27] LABS: ALBUMIN 3.7 g/dl (3.4-5.0); BLOOD UREA NITROGEN 14.2 mg/dL (7-18)
[2023-11-25 10:31] LABS: BILIRUBIN,TOTAL 0.4 mg/dL (0.2-1); TOT PROT 6.9 g/dl (6.4-8.2)
[2023-11-25 10:32] LABS: HEMATOCRIT 40.4 % (35.4-49); HEMOGLOBIN 12.6 GM/dL (11.7-16.9); MCH 28.3 pg (25.7-33.7); MCHC 31.1 g/dl (32.0-35.9); MEAN CELL VOLUME 91.1 fl (80-96); MEAN PLT VOLUME 10.3 fl (7.5-11.1); PLATELET COUNT 183 10^3/uL (134-434); RBC 4.44 M/mm3 (4.00-5.60); RDW 14.1 % (11.9-15.9); WHITE BLOOD COUNT 7.3 K/mm3 (4.0-10.0)
[2023-11-25] MEDS ORDERED: LACTULOSE 20 GM/30 ML UDC (FOR ORAL USE ONLY) PO PRN (12:55)
[2023-11-25] MEDS: LORazepam 1 MG TABLET PO PRN (17:24)
[2023-11-25] MEDS: LORazepam 2 MG TABLET PO SCH (19:28)
[2023-11-25] MEDS: LORazepam 1 MG TABLET PO SCH (22:40)
[2023-11-26] MEDS: LORazepam 1 MG TABLET PO SCH (05:48)
[2023-11-27] MEDS ORDERED: LORazepam 0.5 MG TABLET PO PRN
[2023-11-27] MEDS: LORazepam 0.5 MG TABLET PO SCH (05:36)
[2023-11-27] MEDS: LACTULOSE 20 GM/30 ML UDC (FOR ORAL USE ONLY) PO SCH (13:53)
[2023-11-27] MEDS: CLOTRIMAZOLE 1% CREAM TP SCH (23:01)
[2023-11-28] MEDS: LORazepam 0.5 MG TABLET PO ONE (05:30)
[2023-11-28 12:56] VITALS: BP 124/76; PULSE 70; RESP 18; TEMP 97.7
== END 2023-11-28 14:04 | disposition home or self-care (01) | DRG 774 ==
LOC: YASAS 09:35 → Y6N 10:27
PROVIDERS: ADMIT Allergy & Immunology; ATTEND Surgery
PROC: HZ2ZZZZ Detoxification Services for Substance Abuse Treatment (ICD-10-PCS; principal; 2023-11-24)
DX: F10.230 Alcohol dependence with withdrawal, uncomplicated (principal); F14.20 Cocaine dependence, uncomplicated; F17.213 Nicotine dependence, cigarettes, with withdrawal; E72.20 Disorder of urea cycle metabolism, unspecified; R79.89 Other specified abnormal findings of blood chemistry; Z59.01 Sheltered homelessness
CPT/HCPCS: 36415; 80053; 80305; 80307; 82140; 85027

== ENCOUNTER 2023-12-26 13:06 | Inpatient (IN) | payer OTHER ==
[2023-12-26] MEDS ORDERED: DICYCLOMINE HCL 10 MG CAPSULE PO PRN (14:51)
[2023-12-26] MEDS ORDERED: BENZONATATE 200 MG CAPSULE PO PRN (14:51)
[2023-12-26] MEDS ORDERED: ONDANSETRON *ODT* 4 MG TABLET SL PRN (14:51)
[2023-12-26] MEDS ORDERED: IBUPROFEN 600 MG TABLET (FP) PO PRN (14:51)
[2023-12-26] MEDS ORDERED: guaiFENesin 600 MG TABLET.ER (FP) PO PRN (14:51)
[2023-12-26] MEDS ORDERED: NICOTINE POLACRILEX 2 MG GUM BUC PRN (14:51)
[2023-12-26] MEDS ORDERED: BENZOCAINE/MENTHOL (CHLORASEPTIC ) LOZENGE MM PRN (14:51)
[2023-12-26] MEDS ORDERED: POLYETHYLENE GLYCOL (HEALTHYLAX) 3350 17 GM PACKET PO PRN (14:51)
[2023-12-26] MEDS ORDERED: NICOTINE POLACRILEX 2 MG LOZENGE BC PRN (14:51)
[2023-12-26] MEDS ORDERED: BISMUTH SUBSALICYLATE 262 MG/15 ML BTL PO PRN (14:51)
[2023-12-26] MEDS ORDERED: LOPERAMIDE HCL 2 MG CAPSULE PO PRN (14:51)
[2023-12-26] MEDS ORDERED: MAG HYDROX/AL HYDROX/SIMETH 30 ML UNIT-DOSE CUP PO PRN (14:51)
[2023-12-26] MEDS ORDERED: IBUPROFEN 400 MG TABLET (FP) PO PRN (14:51)
[2023-12-26] MEDS ORDERED: ACETAMINOPHEN 325 MG TABLET (FP) PO PRN (14:51)
[2023-12-26] MEDS ORDERED: MAGNESIUM HYDROX 2400MG/30ML ORAL SUSPENSION 30 ML CUP PO PRN (14:51)
[2023-12-26] MEDS ORDERED: diazePAM 5 MG TABLET ONE (15:50)
[2023-12-26] MEDS: diazePAM 5 MG TABLET PO PRN (15:55)
[2023-12-26 16:25] VITALS: BMI 26.4
[2023-12-26] MEDS: THIAMINE 100 MG TABLET PO SCH (22:29)
[2023-12-26] MEDS: MELATONIN 5 MG TABLETS PO SCH (22:29)
[2023-12-26] MEDS: METHOCARBAMOL 500 MG TABLET PO PRN (22:30)
[2023-12-26] MEDS: diazePAM 5 MG TABLET PO SCH (22:31)
[2023-12-27] MEDS: diazePAM 5 MG TABLET PO SCH (05:52)
[2023-12-27] MEDS: PRENATAL VITAMINS W/ FOLIC ACID TABLET (FP) PO SCH (10:18)
[2023-12-28] MEDS: diazePAM 5 MG TABLET PO SCH (05:45)
[2023-12-28 12:27] LABS: HEMATOCRIT 40.1 % (35.4-49); HEMOGLOBIN 12.9 GM/dL (11.7-16.9); MCH 29.4 pg (25.7-33.7); MCHC 32.2 g/dl (32.0-35.9); MEAN CELL VOLUME 91.4 fl (80-96); MEAN PLT VOLUME 10.3 fl (7.5-11.1); PLATELET COUNT 184 10^3/uL (134-434); RBC 4.39 M/mm3 (4.00-5.60); RDW 14.9 % (11.9-15.9); WHITE BLOOD COUNT 5.1 K/mm3 (4.0-10.0)
[2023-12-28 12:33] LABS: POTASSIUM 4.5 mmol/L (3.5-5.1)
[2023-12-28 12:36] LABS: CALCIUM 9.9 mg/dL (8.5-10.1)
[2023-12-28 12:37] LABS: BLOOD UREA NITROGEN 15.2 mg/dL (7-18)
[2023-12-28 12:40] LABS: CREATININE 1.3 mg/dL (0.55-1.3)
[2023-12-28 12:41] LABS: BILIRUBIN,TOTAL 0.3 mg/dL (0.2-1)
[2023-12-28] MEDS: LACTULOSE 20 GM/30 ML UDC (FOR ORAL USE ONLY) PO ONE (16:47)
[2023-12-28] MEDS: LACTULOSE 20 GM/30 ML UDC (FOR ORAL USE ONLY) PO SCH (17:41)
[2023-12-29] MEDS: diazePAM 5 MG TABLET PO ONE (05:36)
[2023-12-29 06:18] VITALS: BP 106/65; PULSE 67; RESP 16; TEMP 97.8
== END 2023-12-29 09:00 | disposition home or self-care (01) | DRG 774 ==
LOC: YASAS 13:06 → Y6N 16:31
PROVIDERS: ADMIT Allergy & Immunology; ATTEND Surgery
PROC: HZ2ZZZZ Detoxification Services for Substance Abuse Treatment (ICD-10-PCS; principal; 2023-12-26)
DX: F10.230 Alcohol dependence with withdrawal, uncomplicated (principal); F14.20 Cocaine dependence, uncomplicated; F17.210 Nicotine dependence, cigarettes, uncomplicated; B35.3 Tinea pedis; R79.89 Other specified abnormal findings of blood chemistry; Z59.00 Homelessness unspecified
CPT/HCPCS: 36415; 80053; 80305; 80307; 82140; 85027

== ENCOUNTER 2024-03-05 13:14 | Inpatient (IN) | payer OTHER ==
[2024-03-05 13:31] VITALS: BMI 26.2
[2024-03-05] MEDS ORDERED: POLYETHYLENE GLYCOL (HEALTHYLAX) 3350 17 GM PACKET PO PRN (14:35)
[2024-03-05] MEDS ORDERED: LOPERAMIDE HCL 2 MG CAPSULE PO PRN (14:35)
[2024-03-05] MEDS ORDERED: IBUPROFEN 600 MG TABLET (FP) PO PRN (14:35)
[2024-03-05] MEDS ORDERED: BENZONATATE 200 MG CAPSULE PO PRN (14:35)
[2024-03-05] MEDS ORDERED: ACETAMINOPHEN 325 MG TABLET (FP) PO PRN (14:35)
[2024-03-05] MEDS ORDERED: BENZOCAINE/MENTHOL (CHLORASEPTIC ) LOZENGE MM PRN (14:35)
[2024-03-05] MEDS ORDERED: IBUPROFEN 400 MG TABLET (FP) PO PRN (14:35)
[2024-03-05] MEDS ORDERED: NALOXONE (NARCAN) HCL 4 MG/0.1 ML SPRAY NS PRN (14:35)
[2024-03-05] MEDS ORDERED: DICYCLOMINE HCL 10 MG CAPSULE PO PRN (14:35)
[2024-03-05] MEDS ORDERED: guaiFENesin 600 MG TABLET.ER (FP) PO PRN (14:35)
[2024-03-05] MEDS ORDERED: BISMUTH SUBSALICYLATE 262 MG/15 ML BTL PO PRN (14:35)
[2024-03-05] MEDS ORDERED: ONDANSETRON *ODT* 4 MG TABLET SL PRN (14:35)
[2024-03-05] MEDS ORDERED: NICOTINE POLACRILEX 2 MG GUM BUC PRN (14:35)
[2024-03-05] MEDS ORDERED: MAG HYDROX/AL HYDROX/SIMETH 30 ML UNIT-DOSE CUP PO PRN (14:35)
[2024-03-05] MEDS ORDERED: MAGNESIUM HYDROX 2400MG/30ML ORAL SUSPENSION 30 ML CUP PO PRN (14:35)
[2024-03-05] MEDS: METHOCARBAMOL 500 MG TABLET PO PRN (17:24)
[2024-03-05] MEDS: hydrOXYzine PAMOATE 25 MG CAPSULE (FP) PO PRN (17:24)
[2024-03-05] MEDS: THIAMINE 100 MG TABLET PO SCH (22:46)
[2024-03-05] MEDS: MELATONIN 5 MG TABLETS PO SCH (22:47)
[2024-03-06] MEDS ORDERED: LORazepam 1 MG TABLET PO PRN (09:04)
[2024-03-06] MEDS: PRENATAL VITAMINS W/ FOLIC ACID TABLET (FP) PO SCH (09:25)
[2024-03-06] MEDS: NICOTINE 14 MG/24 HOURS TOPICAL PATCH TD SCH (09:25)
[2024-03-06] MEDS: LORazepam 2 MG TABLET PO SCH (10:01)
[2024-03-06 10:36] LABS: HEMATOCRIT 37.9 % (35.4-49); MCH 28.7 pg (25.7-33.7); MCHC 31.7 g/dl (32.0-35.9); MEAN CELL VOLUME 90.5 fl (80-96); MEAN PLT VOLUME 9.1 fl (7.5-11.1); PLATELET COUNT 210 10^3/uL (134-434); RBC 4.19 M/mm3 (4.00-5.60); RDW 14.2 % (11.9-15.9); WHITE BLOOD COUNT 6.6 K/mm3 (4.0-10.0)
[2024-03-07 06:56] VITALS: RESP 17
[2024-03-07 08:49] VITALS: BP 138/78; PULSE 83; TEMP 97.6
[2024-03-08] MEDS ORDERED: LORazepam 1 MG TABLET PO SCH (05:00)
[2024-03-09] MEDS ORDERED: LORazepam 0.5 MG TABLET PO PRN
[2024-03-09] MEDS ORDERED: LORazepam 0.5 MG TABLET PO SCH (05:00)
[2024-03-10] MEDS ORDERED: LORazepam 0.5 MG TABLET PO ONE (05:00)
== END 2024-03-07 08:41 | disposition left against medical advice (07) | DRG 770 ==
LOC: YASAS 13:14 → Y6N 15:13
PROVIDERS: ADMIT Allergy & Immunology; ATTEND Surgery
PROC: HZ42ZZZ Group Counseling for Substance Abuse Treatment, Cognitive-Behavioral (ICD-10-PCS; principal; 2024-03-05)
DX: F10.230 Alcohol dependence with withdrawal, uncomplicated (principal); F14.10 Cocaine abuse, uncomplicated; F17.210 Nicotine dependence, cigarettes, uncomplicated; M54.50 Low back pain, unspecified; G89.29 Other chronic pain
CPT/HCPCS: 36415; 80305; 80307; 85027; 86780; 93005; 93010